=== PATIENT | female | born 1940 | race Caucasian/White ===

== ENCOUNTER 2016-10-02 11:59 | Inpatient (IN) | payer OTHER, MEDICAID, MEDICARE ==
[2016-10-02] VITALS (10 sets, daily range): BP systolic 122–151; BP diastolic 58–75; PULSE 64–80; RESP 16–24; TEMP 98–98.8; O2SAT 94–98
[~2016-10-02] VITALS: Ht 162.6 cm; Wt 87.8 kg
[~2016-10-02 11:59] MED LIST: ASPI81; ATEN1TAB73; ATOR10; ENAL20TA81; MVI; ROSI1TAB24
[2016-10-02] MEDS ORDERED: SODIUM CHLOR 0.9% 1000 ML INJ 1,000 ML IV ONE (12:08)
[2016-10-02 12:23] LABS: I-STAT POTASSIUM 3.9 MMOL/L (3.5-4.9); I-STAT SODIUM 140 MMOL/L (138-146)
[2016-10-02 12:25] LABS: AUTOMATED NEUTROPHIL # 4.4 TH/MM3 (1.8-7.7); BASOPHIL % 0.6 % (0.0-2.0); EOSINOPHIL # 0.1 TH/MM3 (0-0.4); EOSINOPHIL % 1.9 % (0.0-4.0); HEMATOCRIT 38.5 % (35.0-46.0); HEMO FLAGS DIFF FINAL; LYMPH % 25.4 % (9.0-44.0); LYMPHOCYTE # 1.7 TH/MM3 (1.0-4.8); MEAN CELL VOLUME 92.2 FL (80.0-100.0); MEAN CORPUSCULAR HEMOGLOBIN 29.6 PG (27.0-34.0); MEAN CORPUSCULAR HGB CONC 32.1 % (32.0-36.0); MONO % 5.7 % (0.0-8.0); NEUT % 66.4 % (16.0-70.0); PLATELET COUNT 136 TH/MM3 (150-450); RED BLOOD COUNT 4.18 MIL/MM3 (4.00-5.30); RED CELL DISTRIBUTION WIDTH 12.3 % (11.6-17.2); WHITE BLOOD COUNT 6.7 TH/MM3 (4.0-11.0)
--- NOTE | 2016-10-02 12:30 | RADRPT ---
EXAM DATE/TIME: 10/02/2016 12:13 [facility] COMPARISON: No previous studies available for comparison. INDICATIONS : Stroke alert; left side weakness, altered mental status. RADIATION DOSE: 34.92 CTDIvol (mGy) This report was called to Dr Fonseca at 12 18 MEDICAL HISTORY : Hypertension. SURGICAL HISTORY : None. ENCOUNTER: Initial ACUITY: 1 day PAIN SCALE: Non-responsive LOCATION: cranial TECHNIQUE: Multiple contiguous axial images were obtained of the head. Using automated exposure control and adj ustment of the mA and/or kV according to patient size, radiation dose was kept as low as reasonably a chievable to obtain optimal diagnostic quality images. FINDINGS: Negative for an acute process. There is an old infarct in the left parieto-occipital region. There is no parenchymal hemorrhage, acute infarction or mass lesion. There is no extra-axial fluid c ollection appreciated. The posterior fossa is unremarkable. 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 Otherwise, negative for an acute process. MRI is pending. Ha Mancilla MD FACR on October 02, 2016 at 12:20 Board Certified Radiologist. This report was verified electronically.
[2016-10-02 12:32] LABS: APTT (PATIENT) 22.9 SEC (24.3-30.1); PROTHROMBIN TIME - PATIENT 10.7 SEC (9.8-11.6)
[2016-10-02 12:44] LABS: CREATINE KINASE 92 U/L (26-192)
--- NOTE | 2016-10-02 12:53 | RADRPT ---
EXAM DATE/TIME: 10/02/2016 12:46 [facility] COMPARISON: No previous studies available for comparison. INDICATIONS : Stroke alert. MEDICAL HISTORY : Hypertension. SURGICAL HISTORY : None. ENCOUNTER: Initial ACUITY: 1 day PAIN SCORE: Non-responsive. LOCATION: Bilateral chest FINDINGS: A single view of the chest demonstrates the lungs to be symmetrically aerated without evidence of mas s, infiltrate or effusion. The cardiomediastinal contours are unremarkable. Osseous structures are intact. CONCLUSION: No acute disease. Andrew Bui MD on October 02, 2016 at 12:51 Board Certified Radiologist. This report was verified electronically.
[2016-10-02 13:07] LABS: BLOOD, URINE NEG (NEG); GLUCOSE,URINE NEG (NEG); KETONE, URINE NEG (NEG); MUCUS URINE FEW /lpf (OCC); NITRITE,URINE NEG (NEG); PH, URINE 5.5 (5.0-8.5); URINE COLOR YELLOW (YELLW/STRAW)
[2016-10-02] MEDS ORDERED: VITA100T54 PO (13:08)
[2016-10-02] MEDS ORDERED: SERT-129 PO (13:08)
[2016-10-02] MEDS ORDERED: TEMA15CA PO (13:08)
[2016-10-02] MEDS ORDERED: LISI-519 PO (13:08)
[2016-10-02] MEDS ORDERED: METF500T PO (13:08)
[2016-10-02] MEDS ORDERED: PROG100C PO (13:08)
[2016-10-02] MEDS ORDERED: LEVE500T8 PO (13:08)
[2016-10-02] MEDS ORDERED: ASPI1TAB69 PO (13:08)
[2016-10-02] MEDS ORDERED: TRAM50TA PO (13:08)
[2016-10-02] MEDS ORDERED: SIMV40TA PO (13:08)
[2016-10-02] MEDS ORDERED: GADODIAMIDE PF 287 MG/ML 20 ML VIAL (for RAD MRI) IV ONE (14:31)
--- NOTE | 2016-10-02 14:33 | RADRPT ---
EXAM DATE/TIME: 10/02/2016 13:49 [facility] COMPARISON: MRI BRAIN W/O CONTRAST, October 02, 2016, 13:49. INDICATIONS : Aphasia. Right sided weakness with left sided gaze. MEDICAL HISTORY : Diabetes mellitus type 2. Hypertension. SURGICAL HISTORY : Hysterectomy. ENCOUNTER: Initial ACUITY: 1 day PAIN SCORE: 0/10 LOCATION: cranial Please note a normal MRA of the brain does not entirely exclude the possibility of a small aneurysm, nor the possibility of distal intracranial vessel disease. TECHNIQUE: 3D time of flight MRA was performed. Source images, multiplanar STS MIP, and 3D volume MIP reconstru ctions were reviewed. FINDINGS: There is occlusion of the left internal carotid artery. The right internal carotid artery is patent. The right internal carotid artery is seen to normally bifurcate into the anterior and middle cerebral arteries. Both the right and left A2 segments fill from the right side. A small amount of flow withi n the left A1 segment from the anterior communicating artery. No significant flow is seen within the left middle cerebral artery territory. The basilar artery is from the 2 vertebral arteries. The basil ar artery primarily and is at the right posterior cerebral artery. The left posterior cerebral artery demonstrates very minimal flow. 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 Minimal flow is seen i n the left posterior cerebral artery. Andrew Bui MD on October 02, 2016 at 14:26 Board Certified Radiologist. This report was verified electronically.
--- NOTE | 2016-10-02 14:46 | RADRPT ---
EXAM DATE/TIME: 10/02/2016 13:49 [facility] COMPARISON: MRA BRAIN W/O CONTRAST, October 02, 2016, 13:49. CT BRAIN W/O CONTRAST, October 02, 2016, 12:13. INDICATIONS : Aphasia. Right sided weakness with left sided gaze. MEDICAL HISTORY : Hypertension. Diabetes mellitus type 2. SURGICAL HISTORY : Hysterectomy. ENCOUNTER: Initial ACUITY: 1 day PAIN SCORE: 0/10 LOCATION: cranial TECHNIQUE: Multiplanar, multisequence MRI of the brain was performed without contrast. FINDINGS: Abnormal signal is seen involving the left temporal lobe with associated restricted diffusion. Simila r characteristics are seen from a single standpoint involving the periventricular white matter of the left frontal lobe and parietal lobe. There is an area of encephalomalacia involving the left occipit al lobe. No hemorrhage observe. The remaining periventricular white matter shows scattered high T2 si gnal abnormality. Ventricles are normal in size. There is signal seen within the left middle cerebral artery and throughout the visualized portions of the left ICA consistent with thrombus. CONCLUSION: 1. Acute nonhemorrhagic left MCA territory infarction with signal involving the left ICA and MCA cons istent with thrombus. 2. Encephalomalacia in the left occipital lobe. 3. Chronic small vessel ischemic change. Vel Barkley Jr., MD on October 02, 2016 at 14:23 Board Certified Radiologist. This report was verified electronically.
--- NOTE | 2016-10-02 15:10 | RADRPT ---
EXAM DATE/TIME: 10/02/2016 13:49 [facility] COMPARISON: No previous studies available for comparison. INDICATIONS : Aphasia with right sided weakness and left sided qaze. CONTRAST: 20 cc Omniscan (gadodiamide) IV MEDICAL HISTORY : Hypertension. Diabetes mellitus type 2. SURGICAL HISTORY : Hysterectomy. ENCOUNTER: Initial ACUITY: 1 day PAIN SCORE: 0/10 LOCATION: Cranial Percent stenosis is calculated using the diameter of the stenotic region over the diameter of the nor mal distal internal carotid artery. TECHNIQUE: Bolus infused MRA of the extracranial circulation was performed using a neurovascular coil. Post processing was performed including rotating subvolume maximum intensity projections of ea ch carotid artery, rotating full volume maximum intensity projections of both carotid arteries, sagit amy and coronal sliding thin slab reformations of each carotid artery, and left oblique sliding thin slab reformation through the aortic arch to include the origin of the arch branch vessels. FINDINGS: Branching pattern of the great vessels is normal. RIGHT CAROTID: There is no evidence for hemodynamically significant carotid stenosis. LEFT CAROTID: There is occlusion of the left internal carotid at its origin through the skull bas e. There is apparent collateral filling of the distal MCA branches. VERTEBRALS: Both vertebral arteries are patent. CONCLUSION: Occluded left internal carotid at its origin through the skull base. Ha Mancilla MD FACR on October 02, 2016 at 14:58 Board Certified Radiologist. This report was verified electronically.
--- NOTE | 2016-10-02 15:39 | PD ---
HPI Chief Complaint: Stroke Alert Time Seen by Provider: 12:07 Travel History International Travel<30 days: No Contact w/Intl Traveler<30days: No Traveled to known affect area: No History of Present Illness HPI 76-year-old female was brought in by EMS for right-sided weakness and aphasia. Patient was last seen normal last night. Patient was found by a friend this morning unable to speak and with right-sided weakness . EMS was called. Patient was brought to the ED for evaluation. Patient's friend states the patient had a CVA last year and was seen by personal physician. Patient's friend states that she has some mild residual weakness since then. Patient's unable to provide information. Patient's friend is not available now for further history. In reviewing medical record, patient has history hypertension , diabetes, dyslipidemia. Patient status post hysterectomy. PFSH Past Medical History High Cholesterol: Yes Cerebrovascular Accident: Yes (LAST YEAR) Diabetes: Yes Patient Takes Glucophage: Yes (06/03/17 0900) Hypertension: Yes Tetanus Vaccination: Unknown Influenza Vaccination: Yes ?: Not Past Surgical History Hysterectomy: Yes Social History Alcohol Use: No Tobacco Use: Yes (1 PK PER DAY) Allergies-Medications (Allergen,Severity, Reaction): Coded Allergies: No Known Allergies (Verified , 10/02/16) Reported Meds & Prescriptions Reported Meds & Active Scripts Active Reported Progesterone Micronized 100 Mg Cap 100 Mg PO DAILY Levetiracetam 500 Mg Tab 500 Mg PO TID Metformin (Metformin HCl) 500 Mg Tab 500 Mg PO BIDPC With meals Temazepam 15 Mg Cap 15 Mg PO HS PRN Sertraline (Sertraline HCl) 100 Mg Tab 100 Mg PO DAILY Simvastatin 40 Mg Tab 40 Mg PO HS Lisinopril 5 Mg Tab 5 Mg PO DAILY Vitamin B-1 (Thiamine HCl) 100 Mg Tab 100 Mg PO DAILY Aspirin 81 Mg Tabdr 81 Mg PO DAILY Tramadol (Tramadol HCl) 50 Mg Tab 50 Mg PO Q4H PRN Review of Systems ROS Limitations: Altered Mental Status, Speech Impaired General / Constitutional: No: Fever Eyes: No: Visual changes HENT: No: Headaches Cardiovascular: No: Chest Pain or Discomfort Respiratory: No: Shortness of Breath Gastrointestinal: No: Abdominal Pain Genitourinary: No: Dysuria Musculoskeletal: No: Pain Skin: No Rash Neurologic: No: Weakness Psychiatric: No: Depression Endocrine: No: Polydipsia Hematologic/Lymphatic: No: Easy Bruising Physical Exam Narrative GENERAL: Well-nourished, well-developed patient. Patient's awake SKIN: Warm and dry. HEAD: Normocephalic. EYES: No scleral icterus. No injection or drainage. Pupils 2 mm equal reactive. NECK: Supple, trachea midline. No JVD or lymphadenopathy. CARDIOVASCULAR: Regular rate and rhythm without murmurs, gallops, or rubs. RESPIRATORY: Breath sounds equal bilaterally. No accessory muscle use. GASTROINTESTINAL: Abdomen soft, non-tender, nondistended. MUSCULOSKELETAL: No cyanosis, or edema. BACK: Nontender without obvious deformity. No CVA tenderness. Neurologic exam: Patient is awake however does not follow command. Patient unable to move the right upper and lower extremity. Mild drooping on the right side of face. Deep tendon reflexes 1+ and equal. Negative Babinski. Data Data Last Documented VS Vital Signs Date Time Temp Pulse Resp B/P Pulse Ox O2 Delivery O2 Flow Rate FiO2 10/02/16 14:43 67 17 132/62 96 Room Air 10/02/16 12:48 2.00 10/02/16 12:21 98.0 Orders Diet Npo (10/02/16 Lunch) Activity Bed Rest (10/02/16 ) Electrocardiogram (10/02/16 ) I-Stat Creatinine (10/02/16 12:08) I-Stat Profile (10/02/16 12:08) Prothrombin Time / Inr (Pt) (10/02/16 12:08) Act Partial Throm Time (Ptt) (10/02/16 12:08) Complete Blood Count With Diff (10/02/16 12:08) Fibrinogen (10/02/16 12:08) Creatine Kinase (Cpk) (10/02/16 12:08) Troponin I (10/02/16 12:08) Ua Includes Microscopic (10/02/16 12:08) Type And Screen (10/02/16 12:08) Ct Brain W/O Iv Contrast(Rout) (10/02/16 ) Chest, Single Ap (10/02/16 ) Consult Neurology (10/02/16 ) Blood Glucose (10/02/16 12:08) Ecg Monitoring (10/02/16 12:08) Neuro Checks Q2HX12,Q4H (10/02/16 12:08) Nursing Bedside Swallow Assess .ONCE (10/02/16 12:08) Iv Access Insert/Monitor (10/02/16 12:08) NPO (10/02/16 12:08) Oximetry (10/02/16 12:08) Oxygen Administration (10/02/16 12:08) Sodium Chlor 0.9% 1000 Ml Inj (Ns 1000 M (10/02/16 12:08) Resp Oxygen Telly C Titrat 1-4 L (10/02/16 12:08) Cath For Specimen (10/02/16 12:08) Mri Brain W/O Contrast (10/02/16 12:18) Mra Brain W/O Contrast (Cow) (10/02/16 12:18) Mra Carotids W Contrast (10/02/16 12:18) (Hub Use Only)Inp Phy Cons/Ref (10/02/16 ) Gadodiamide Pf Inj (Omniscan Pf Inj) (10/02/16 14:31) Labs Laboratory Tests Test 10/02/16 10/02/16 12:10 12:52 White Blood Count 6.7 TH/MM3 Red Blood Count 4.18 MIL/MM3 Hemoglobin 12.4 GM/DL Bedside Hemoglobin 12.6 G/DL Hematocrit 38.5 % Bedside Hematocrit 37.0 % Mean Corpuscular Volume 92.2 FL Mean Corpuscular Hemoglobin 29.6 PG Mean Corpuscular Hemoglobin 32.1 % Concent Red Cell Distribution Width 12.3 % Platelet Count 136 TH/MM3 Mean Platelet Volume 9.6 FL Neutrophils (%) (Auto) 66.4 % Lymphocytes (%) (Auto) 25.4 % Monocytes (%) (Auto) 5.7 % Eosinophils (%) (Auto) 1.9 % Basophils (%) (Auto) 0.6 % Neutrophils # (Auto) 4.4 TH/MM3 Lymphocytes # (Auto) 1.7 TH/MM3 Monocytes # (Auto) 0.4 TH/MM3 Eosinophils # (Auto) 0.1 TH/MM3 Basophils # (Auto) 0.0 TH/MM3 CBC Comment DIFF FINAL Differential Comment Prothrombin Time 10.7 SEC Prothromb Time International 1.0 RATIO Ratio Activated Partial 22.9 SEC Thromboplast Time Fibrinogen 270 mg/dL Bedside Sodium 140 MMOL/L Bedside Potassium 3.9 MMOL/L Bedside Chloride 103 MMOL/L Bedside Blood Urea Nitrogen 16 MG/DL Bedside Creatinine 1.0 MG/DL Bedside Glucose 138 MG/DL Total Creatine Kinase 92 U/L Troponin I LESS THAN 0.02 NG/ML Urine Color YELLOW Urine Turbidity CLEAR Urine pH 5.5 Urine Specific [place] 1.025 Urine Protein TRACE mg/dL Urine Glucose (UA) NEG mg/dL Urine Ketones NEG mg/dL Urine Occult Blood NEG Urine Nitrite NEG Urine Bilirubin NEG Urine Urobilinogen LESS THAN 2.0 MG/DL Urine Leukocyte Esterase NEG Urine RBC 1 /hpf Urine WBC 2 /hpf Urine Mucus FEW /lpf MDM Medical Decision Making Medical Screen Exam Complete: Yes Emergency Medical Condition: Yes Interpretation(s) Last Impressions Head Magnetic Resonance Angiography 10/02/16 1218 Signed Impressions: Service Date/Time: September 13:49 - CONCLUSION: 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 Minimal flow is seen in the left posterior cerebral artery. Andrew Bui MD Brain MRI 10/02/16 1218 Signed Impressions: Service Date/Time: September 13:49 - CONCLUSION: 1. Acute nonhemorrhagic left MCA territory infarction with signal involving the left ICA and MCA consistent with thrombus. 2. Encephalomalacia in the left occipital lobe. 3. Chronic small vessel ischemic change. 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 Otherwise, negative for an acute process. MRI is pending. Ha Mancilla MD FACR Chest X-Ray 10/02/16 0000 Signed Impressions: Service Date/Time: September 12:46 - CONCLUSION: No acute disease. Andrew Bui MD Differential Diagnosis Differential diagnosis including TIA, CVA. Narrative Course 76-year-old female with aphasia and right-sided weakness. Patient was found this morning by a friend with the symptoms. Stroke alert was called. Normal saline solution 70 cc an hour. Head of bed flat. O2 2 L nasal cannula. I spoke with neurologist station worker Dr. Begum. Patient is not a candidate for TPA because patient last seen normal was last night. Diagnosis Primary Impression: Acute CVA (cerebrovascular accident) Bacilio Fonseca MD 16, 2017 15:39
[2016-10-02] MEDS ORDERED: SODIUM CHLORIDE 0.9% FLUSH 5 ML FLUSH FLUSH PRN (16:30)
[2016-10-02] MEDS ORDERED: NALOXONE HCL 0.4 MG/ML AMP IV PRN (16:30)
--- NOTE | 2016-10-02 16:33 | HHI.HP ---
[facility] Service [facility] Primary Care Physician Unknown Admission Diagnosis acute CVA Diagnoses: Chief Complaint: Right side Weakness Travel History International Travel<30 Days: No Contact w/Intl Traveler <30 Da: No Traveled to Known Affected Are: No History of Present Illness This is a pleasant 76 y/o Female who was brought in by EMS for right sided weakness and aphasia, the last time seen Normal was yesterday night, she was found by a friend this morning unable to Speak and with right sided weakness she has history of CVA last year ans was seen by her PCP, she has some mild residual weakness since then, the patient was unable to provide information, she has Hypertension, DM II, Hyperlipidemia, Status post Hysterectomy Discussed with patient, who has Dysarthria, he Daughter Mrs. Nyla Almanza and her relative Mr. Cr Sheikh in the room, the patient is heavy smoker one pack of cigarettes daily. unable to move her right side, will need early Physical Therapy and Occupational Therapy, Speech therapy working with her but did not pass the swallow test will need IV fluids. Past Family Social History Past Medical History Hyperlipidemia CVA last year. DM II Hypertension Obesity Severe Tobacco dependence Past Surgical History YOGESH Reported Medications Reported Meds & Active Scripts Active Reported Progesterone Micronized 100 Mg Cap 100 Mg PO DAILY Levetiracetam 500 Mg Tab 500 Mg PO TID Metformin (Metformin HCl) 500 Mg Tab 500 Mg PO BIDPC With meals Temazepam 15 Mg Cap 15 Mg PO HS PRN Sertraline (Sertraline HCl) 100 Mg Tab 100 Mg PO DAILY Simvastatin 40 Mg Tab 40 Mg PO HS Lisinopril 5 Mg Tab 5 Mg PO DAILY Vitamin B-1 (Thiamine HCl) 100 Mg Tab 100 Mg PO DAILY Aspirin 81 Mg Tabdr 81 Mg PO DAILY Tramadol (Tramadol HCl) 50 Mg Tab 50 Mg PO Q4H PRN Allergies: Coded Allergies: No Known Allergies (Verified , 10/02/16) Active Ordered Medications Current Medications Medications (Trade) Dose Ordered Sig/Lauren Route Start Time Stop Time Status Last Admin (NS 1000 ml Inj) 1,000 ml @ 70 mls/hr [id number] ONCE IV 10/02/16 12:08 10/03/16 02:25 10/02/16 13:28 (Keppra) 500 mg TID PO 10/02/16 18:00 UNV (Prinivil) 5 mg DAILY PO 10/03/16 09:00 UNV (Zoloft) 100 mg DAILY PO 10/03/16 09:00 UNV (Restoril) 15 mg HS PRN PO 10/02/16 16:30 UNV (Vitamin B1) 100 mg DAILY PO 10/03/16 09:00 UNV Non-Formulary Medication 40 mg HS PO 10/02/16 21:00 UNV Family History Mother and Father with CAD and Hypertension. Social History Denies Alcohol abuse but smokes one pack per day Physical Exam Vital Signs Vital Signs Date Time Temp Pulse Resp B/P Pulse Ox O2 Delivery O2 Flow Rate FiO2 10/02/16 14:43 67 17 132/62 96 Room Air 10/02/16 13:09 65 16 125/58 96 Room Air 10/02/16 12:48 98 Nasal Cannula 2.00 10/02/16 12:45 68 16 95 Room Air 10/02/16 12:36 94 Room Air 10/02/16 12:36 97 Nasal Cannula 2 10/02/16 12:21 98.0 66 16 151/67 98 Physical Exam GENERAL: Obese patient alert and oriented but with Dysarthria. SKIN: Warm and dry. HEAD: Normocephalic. EYES: No scleral icterus. No injection or drainage. Pupils 2 mm equal reactive. NECK: Supple, trachea midline. No JVD or lymphadenopathy. CARDIOVASCULAR: Regular rate and rhythm without murmurs, gallops, or rubs. RESPIRATORY: Breath sounds equal bilaterally. No accessory muscle use. GASTROINTESTINAL: Abdomen soft, non-tender, nondistended. MUSCULOSKELETAL: No cyanosis, or edema. BACK: Nontender without obvious deformity. No CVA tenderness. Neurologic exam: Patient is awake, alert and looks oriented, unable to move her right arm and right leg. Mild drooping on the right side of face. Deep tendon reflexes 1+ and equal. Negative Babinski. Laboratory Laboratory Tests Test 10/02/16 10/02/16 10/02/16 12:10 12:52 15:05 White Blood Count 6.7 Red Blood Count 4.18 Hemoglobin 12.4 Bedside Hemoglobin 12.6 Hematocrit 38.5 Bedside Hematocrit 37.0 Mean Corpuscular Volume 92.2 Mean Corpuscular Hemoglobin 29.6 Mean Corpuscular Hemoglobin 32.1 Concent Red Cell Distribution Width 12.3 Platelet Count 136 Mean Platelet Volume 9.6 Neutrophils (%) (Auto) 66.4 Lymphocytes (%) (Auto) 25.4 Monocytes (%) (Auto) 5.7 Eosinophils (%) (Auto) 1.9 Basophils (%) (Auto) 0.6 Neutrophils # (Auto) 4.4 Lymphocytes # (Auto) 1.7 Monocytes # (Auto) 0.4 Eosinophils # (Auto) 0.1 Basophils # (Auto) 0.0 CBC Comment DIFF FINAL Differential Comment Prothrombin Time 10.7 Prothromb Time International 1.0 Ratio Activated Partial 22.9 Thromboplast Time Fibrinogen 270 Bedside Sodium 140 Bedside Potassium 3.9 Bedside Chloride 103 Bedside Blood Urea Nitrogen 16 Bedside Creatinine 1.0 Bedside Glucose 138 Total Creatine Kinase 92 Troponin I LESS THAN 0.02 Urine Color YELLOW Urine Turbidity CLEAR Urine pH 5.5 Urine Specific [place] 1.025 Urine Protein TRACE Urine Glucose (UA) NEG Urine Ketones NEG Urine Occult Blood NEG Urine Nitrite NEG Urine Bilirubin NEG Urine Urobilinogen LESS THAN 2.0 Urine Leukocyte Esterase NEG Urine RBC 1 Urine WBC 2 Urine Mucus FEW Blood Type A POSITIVE Result Diagram: 10/02/16 1210 Imaging Last Impressions Neck Magnetic Resonance Angiography 10/02/168 Signed Impressions: Service Date/Time: September 13:49 - CONCLUSION: Occluded left internal carotid at its origin through the skull base. 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 Minimal flow is seen in the left posterior cerebral artery. Andrew Bui MD Brain MRI 10/02/168 Signed Impressions: Service Date/Time: September 13:49 - CONCLUSION: 1. Acute nonhemorrhagic left MCA territory infarction with signal involving the left ICA and MCA consistent with thrombus. 2. Encephalomalacia in the left occipital lobe. 3. Chronic small vessel ischemic change. 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 Otherwise, negative for an acute process. MRI is pending. Ha Mancilla MD FACR Chest X-Ray 10/02/16 0000 Signed Impressions: Service Date/Time: September 12:46 - CONCLUSION: No acute disease. Andrew Bui MD Assessment and Plan Assessment and Plan 1. Acute Left Arterial Ischemic Stroke, ICA Internal Carotid Artery Occlusion, Moderate to large occlusion questioned by Neurology specialist possible Acute thrombosis of Stenotic left Carotid versus Acute Occlusion early discussed between ER specialist and Neurology due to Stroke alert but not considered by Doctor Clemente Begum to give tPA, because of the last time seen normal was last night. given Aspirin rectally, asked for Echocardiogram avoid Hypotension, PT, OT and ST failed swallow test is NPO. continue Cardiac monitoring. 2. Left Carotid Artery Occlusion 3. 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 4. Hypertension controlled on hold Lisinopril 5 mg 5. Hyperlipidemia to continue Statins 6. CVA last year 7. DM II continue sliding scale she is NPO. 8. Hyperlipidemia 9. Obesity strongly recommended diet and exercise as outpatient, 10. Severe Tobacco dependence strongly recommended to stop smoking. DVT prophylaxis with Lovenox Discussed with Emergency Medicine specialist doctor Bacilio green. Code Status Full Code. Discussed Condition With Patient, Her Daughter Mrs. Nyla Almanza and relative Mr. Cr Sheikh Discussed with ER specialist. Physician Certification 2 Midnight Certification Type: Admission for Inpatient Services Order for Inpatient Services The services are ordered in accordance with Medicare regulations or non- Medicare payer requirements, as applicable. In the case of services not specified as inpatient-only, they are appropriately provided as inpatient services in accordance with the 2-midnight benchmark. Estimated LOS (days): 3 days is the estimated time the patient will need to remain in the hospital, assuming treatment plan goals are met and no additional complications. Post-Hospital Plan: Not yet determined Gabriel Salazar MD Oct 02, 2016 16:33
[2016-10-02] MEDS: DOCUSATE SODIUM 100 MG CAP PO SCH (16:54)
[2016-10-02] MEDS: SODIUM CHLOR 0.9% 1000 ML INJ 1,000 ML IV SCH ×2 (16:54→18:19)
[2016-10-02] MEDS ORDERED: ONDANSETRON HCL 4 MG/2 ML VIAL IVP PRN (17:00)
[2016-10-02] MEDS ORDERED: BISACODYL 10 MG SUPP PR PRN (17:00)
[2016-10-02] MEDS ORDERED: ACETAMINOPHEN 325 MG TAB PO PRN (17:00)
[2016-10-02] MEDS: ASPIRIN 300 MG SUPP RECTAL SCH (17:18)
[2016-10-02] MEDS: ENOXAPARIN SODIUM 40 MG/0.4 ML SYRINGE SQ SCH (17:19)
--- NOTE | 2016-10-02 17:30 | PD.CONS ---
History of Present Illness Service Neurology Consult Requested By er Reason for Consult stroke alert Primary Care Physician Unknown History of Present Illness 76-year-old female was brought in by EMS for right-sided weakness and aphasia. Patient was last seen normal last night. found by friend this am with deficits. not iv/ia tpa candidate. Patient was found by a friend this morning unable to speak and with right-sided weakness . EMS was called. glucose 138. ct brain no ich. pt poor gx. mri brain- acute stroke left hemisphere mra carotids- left ica occlusion at bifurcation origin mra brain-left ica /mca occlusion PFSH Past Medical History High Cholesterol: Yes Cerebrovascular Accident: Yes (LAST YEAR) Diabetes: Yes Patient Takes Glucophage: Yes (06/03/17 0900) Hypertension: Yes Tetanus Vaccination: Unknown Influenza Vaccination: Yes ?: Not Past Surgical History Hysterectomy: Yes Social History Alcohol Use: No Tobacco Use: Yes (1 PK PER DAY) Allergies-Medications (Allergen,Severity, Reaction): Coded Allergies: No Known Allergies (Verified , 10/02/16) Reported Meds & Prescriptions Reported Meds & Active Scripts Active Reported Progesterone Micronized 100 Mg Cap 100 Mg PO DAILY Levetiracetam 500 Mg Tab 500 Mg PO TID Metformin (Metformin HCl) 500 Mg Tab 500 Mg PO BIDPC With meals Temazepam 15 Mg Cap 15 Mg PO HS PRN Sertraline (Sertraline HCl) 100 Mg Tab 100 Mg PO DAILY Simvastatin 40 Mg Tab 40 Mg PO HS Lisinopril 5 Mg Tab 5 Mg PO DAILY Vitamin B-1 (Thiamine HCl) 100 Mg Tab 100 Mg PO DAILY Aspirin 81 Mg Tabdr 81 Mg PO DAILY Tramadol (Tramadol HCl) 50 Mg Tab 50 Mg PO Q4H PRN Review of Systems ROS Limitations: Altered Mental Status, Speech Impaired Review of Systems All other ROS: ROS reviewed as documented in chart Past Family Social History Allergies: Coded Allergies: No Known Allergies (Verified , 10/02/16) Active Ordered Medications Current Medications Medications (Trade) Dose Ordered Sig/Lauren Route Start Time Stop Time Status Last Admin (Keppra) 500 mg TID PO 10/02/16 18:00 (Prinivil) 5 mg DAILY PO 10/03/16 09:00 (Zoloft) 100 mg DAILY PO 10/03/16 09:00 (Restoril) 15 mg HS PRN PO 10/02/16 16:30 (Vitamin B1) 100 mg DAILY PO 10/03/16 09:00 (Pravachol) 80 mg HS PO 10/02/16 21:00 Aspirin 300 mg 300 mg DAILY RECTAL 10/02/16 17:00 10/02/16 17:18 (NS 1000 ml Inj) 1,000 ml @ 83 mls/hr Q12H3M IV 10/02/16 17:00 10/02/16 16:54 (NS Flush) 2 ml UNSCH PRN FLUSH 10/02/16 16:30 (NS Flush) 2 ml BID FLUSH 10/02/16 21:00 (Tylenol) 650 mg Q4H PRN PO 10/02/16 17:00 (Zofran Inj) 4 mg Q6H PRN IVP 10/02/16 17:00 (Dulcolax Supp) 10 mg DAILY PRN [place] 10/02/16 17:00 (Colace) 100 mg Q12H PO 10/02/16 17:00 (Lovenox Inj) 40 mg Q24H SQ 10/02/16 17:00 10/02/16 17:19 (Narcan Inj) 0.4 mg UNSCH PRN IV 10/02/16 16:30 Exam I&O / VS Vital Signs Date Time Temp Pulse Resp B/P Pulse Ox O2 Delivery O2 Flow Rate FiO2 10/02/16 16:23 64 16 137/64 98 Room Air 10/02/16 14:43 67 17 132/62 96 Room Air 10/02/16 13:09 65 16 125/58 96 Room Air 10/02/16 12:48 98 Nasal Cannula 2.00 10/02/16 12:45 68 16 95 Room Air 10/02/16 12:36 94 Room Air 10/02/16 12:36 97 Nasal Cannula 2 10/02/16 12:21 98.0 66 16 151/67 98 Exam Comments alert, not following, mild left gaze and left head turn, rt hh, reduced rt nlf, rt hemiplegia Review/Management Diagnosis/Plan: (1) Acute left arterial ischemic stroke, ICA (internal carotid artery) Plan: moderate to large 2/2 left ica occlusion ? acute thrombosis of stenotic left carotid vs acute occlusion 2/2 emboli recs aspirin rectally echo ivf avoid hypotension watch resp status isc admit p.t./s.t. in am follow exam (2) Left carotid artery occlusion (3) Seizure cerebral Plan: hx of on keppra recs change to iv keppra for now (4) HTN (hypertension) Problem Qualifiers (1) HTN (hypertension): Qualified Code: I10 - Essential hypertension Clemente Begum MD Oct 02, 2016 17:30
[2016-10-02] MEDS ORDERED: levETIRAcetam 500 MG TAB PO SCH (18:00)
[2016-10-02 19:05] LABS: CREATINE KINASE 125 U/L (26-192)
[2016-10-02] MEDS: PRAVASTATIN SOD 80 MG TAB PO SCH (19:21)
[2016-10-02] MEDS: SODIUM CHLORIDE 0.9% FLUSH 5 ML FLUSH FLUSH SCH (19:39)
[2016-10-02] MEDS: levETIRAcetam INJ 500 MG in SODIUM CHLORIDE 0.9% INJ 100 ML IV SCH (19:39)
[2016-10-02] MEDS: INSULIN NovoLIN REGULAR SUPPLEMENTAL SCALE SQ SCH (20:49)
[2016-10-03] VITALS (14 sets, daily range): BP systolic 115–142; BP diastolic 66–78; PULSE 64–89; RESP 10–29; TEMP 98.2–99.2; O2SAT 93–99
[2016-10-03 01:22] LABS: CREATINE KINASE 122 U/L (26-192)
[2016-10-03] MEDS: DOCUSATE SODIUM 100 MG CAP PO SCH ×2 (03:44→16:50)
[2016-10-03 05:28] LABS: AUTOMATED NEUTROPHIL # 5.4 TH/MM3 (1.8-7.7); BASOPHIL % 0.4 % (0.0-2.0); EOSINOPHIL # 0.1 TH/MM3 (0-0.4); EOSINOPHIL % 0.7 % (0.0-4.0); HEMATOCRIT 36.7 % (35.0-46.0); HEMO FLAGS DIFF FINAL; LYMPH % 29.2 % (9.0-44.0); LYMPHOCYTE # 2.5 TH/MM3 (1.0-4.8); MEAN CELL VOLUME 91.1 FL (80.0-100.0); MEAN CORPUSCULAR HEMOGLOBIN 29.7 PG (27.0-34.0); MEAN CORPUSCULAR HGB CONC 32.6 % (32.0-36.0); MONO % 6.9 % (0.0-8.0); NEUT % 62.8 % (16.0-70.0); PLATELET COUNT 137 TH/MM3 (150-450); RED BLOOD COUNT 4.03 MIL/MM3 (4.00-5.30); RED CELL DISTRIBUTION WIDTH 12.1 % (11.6-17.2); WHITE BLOOD COUNT 8.6 TH/MM3 (4.0-11.0)
[2016-10-03 05:33] LABS: PROTHROMBIN TIME - PATIENT 10.8 SEC (9.8-11.6)
[2016-10-03 06:07] LABS: BICARBONATE 26.4 MEQ/L (21.0-32.0); POTASSIUM 3.8 MEQ/L (3.5-5.1)
[2016-10-03] MEDS: INSULIN NovoLIN REGULAR SUPPLEMENTAL SCALE SQ SCH ×4 (06:11→21:00)
--- NOTE | 2016-10-03 08:06 | HHI.PR ---
Review/Management Diagnosis/Plan: (1) Acute left arterial ischemic stroke, ICA (internal carotid artery) Plan: moderate to large 2/2 left ica occlusion ? acute thrombosis of stenotic left carotid vs acute occlusion 2/2 emboli recs aspirin rectally echo-pending ok for 5th floor p.t./s.t. today follow exam (2) Left carotid artery occlusion Plan: no intervention possible (3) Seizure cerebral Plan: hx of on keppra recs change to iv keppra for now (4) HTN (hypertension) Subjective Subjective Comments No acute events reported Active Medications Current Medications Medications (Trade) Dose Ordered Sig/Lauren Route Start Time Stop Time Status Last Admin (Zoloft) 100 mg DAILY PO 10/03/16 09:00 (Restoril) 15 mg HS PRN PO 10/02/16 16:30 (Vitamin B1) 100 mg DAILY PO 10/03/16 09:00 (Pravachol) 80 mg HS PO 10/02/16 21:00 Aspirin 300 mg 300 mg DAILY RECTAL 10/02/16 17:00 10/02/16 17:18 (NS 1000 ml Inj) 1,000 ml @ 83 mls/hr Q12H3M IV 10/02/16 17:00 10/02/16 18:19 (NS Flush) 2 ml UNSCH PRN FLUSH 10/02/16 16:30 (NS Flush) 2 ml BID FLUSH 10/02/16 21:00 10/02/16 19:39 (Tylenol) 650 mg Q4H PRN PO 10/02/16 17:00 (Zofran Inj) 4 mg Q6H PRN IVP 10/02/16 17:00 (Dulcolax Supp) 10 mg DAILY PRN [place] 10/02/16 17:00 (Colace) 100 mg Q12H PO 10/02/16 17:00 (Lovenox Inj) 40 mg Q24H SQ 10/02/16 17:00 10/02/16 17:19 Naloxone HCl 0.4 mg 0.4 mg UNSCH PRN IV 10/02/16 16:30 (Keppra Inj/NS Inj) 105 ml @ 420 mls/hr Q12HR IV 10/02/16 21:00 10/02/16 19:39 Allergies Allergies Coded Allergies No Known Allergies (Verified10/02/16) Review of Systems All other ROS: ROS reviewed as documented in chart Exam I&O / VS 10/02/16 10/02/16 10/03/16 15:00 23:00 07:00 Intake Total 527 ml 660 ml Balance 527 ml 660 ml Intake IV Total 527 ml 660 ml # Voids 4 3 Vital Signs Date Time Temp Pulse Resp B/P Pulse Ox O2 Delivery O2 Flow Rate FiO2 10/03/16 06:00 64 10/03/16 04:00 98.6 71 18 132/72 93 10/03/16 04:00 71 10/03/16 02:00 69 10/03/16 00:00 98.2 64 18 125/66 99 10/03/16 00:00 64 10/02/16 22:00 80 10/02/16 20:00 98.6 73 24 122/75 96 10/02/16 20:00 68 10/02/16 19:00 98 Room Air 10/02/16 18:00 98.8 73 18 124/73 96 10/02/16 18:00 73 10/02/16 18:00 97 Room Air 10/02/16 17:30 61 17 137/62 97 10/02/16 16:23 64 16 137/64 98 Room Air 10/02/16 14:43 67 17 132/62 96 Room Air 10/02/16 13:09 65 16 125/58 96 Room Air 10/02/16 12:48 98 Nasal Cannula 2.00 10/02/16 12:45 68 16 95 Room Air 10/02/16 12:36 94 Room Air 10/02/16 12:36 97 Nasal Cannula 2 10/02/16 12:21 98.0 66 16 151/67 98 Exam Comments alert, not following, mumbles a couple of words, less gaze preference, rt hh, reduced rt nlf, rt hemiplegia but slight distal finger and toe movement Objective Micro and Labs Laboratory Tests Test 10/02/16 10/02/16 10/02/16 10/02/16 12:10 12:52 15:05 18:15 White Blood Count 6.7 Red Blood Count 4.18 Hemoglobin 12.4 Bedside Hemoglobin 12.6 Hematocrit 38.5 Bedside Hematocrit 37.0 Mean Corpuscular Volume 92.2 Mean Corpuscular Hemoglobin 29.6 Mean Corpuscular Hemoglobin 32.1 Concent Red Cell Distribution Width 12.3 Platelet Count 136 Mean Platelet Volume 9.6 Neutrophils (%) (Auto) 66.4 Lymphocytes (%) (Auto) 25.4 Monocytes (%) (Auto) 5.7 Eosinophils (%) (Auto) 1.9 Basophils (%) (Auto) 0.6 Neutrophils # (Auto) 4.4 Lymphocytes # (Auto) 1.7 Monocytes # (Auto) 0.4 Eosinophils # (Auto) 0.1 Basophils # (Auto) 0.0 CBC Comment DIFF FINAL Differential Comment Prothrombin Time 10.7 Prothromb Time International 1.0 Ratio Activated Partial 22.9 Thromboplast Time Fibrinogen 270 Bedside Sodium 140 Bedside Potassium 3.9 Bedside Chloride 103 Bedside Blood Urea Nitrogen 16 Bedside Creatinine 1.0 Bedside Glucose 138 Total Creatine Kinase 92 Troponin I LESS THAN 0.02 Urine Color YELLOW Urine Turbidity CLEAR Urine pH 5.5 Urine Specific [place] 1.025 Urine Protein TRACE Urine Glucose (UA) NEG Urine Ketones NEG Urine Occult Blood NEG Urine Nitrite NEG Urine Bilirubin NEG Urine Urobilinogen LESS THAN 2.0 Urine Leukocyte Esterase NEG Urine RBC 1 Urine WBC 2 Urine Mucus FEW Blood Type A POSITIVE Antibody Screen NEGATIVE Blood Bank Comment Nasal Screen MRSA (PCR) NEGATIVE Test 10/02/16 10/03/16 10/03/16 18:20 00:22 04:59 Total Creatine Kinase 125 122 Troponin I LESS THAN 0.02 LESS THAN 0.02 White Blood Count 8.6 Red Blood Count 4.03 Hemoglobin 11.9 Hematocrit 36.7 Mean Corpuscular Volume 91.1 Mean Corpuscular Hemoglobin 29.7 Mean Corpuscular Hemoglobin 32.6 Concent Red Cell Distribution Width 12.1 Platelet Count 137 Mean Platelet Volume 9.5 Neutrophils (%) (Auto) 62.8 Lymphocytes (%) (Auto) 29.2 Monocytes (%) (Auto) 6.9 Eosinophils (%) (Auto) 0.7 Basophils (%) (Auto) 0.4 Neutrophils # (Auto) 5.4 Lymphocytes # (Auto) 2.5 Monocytes # (Auto) 0.6 Eosinophils # (Auto) 0.1 Basophils # (Auto) 0.0 CBC Comment DIFF FINAL Differential Comment Prothrombin Time 10.8 Prothromb Time International 1.0 Ratio Sodium Level 142 Potassium Level 3.8 Chloride Level 107 Carbon Dioxide Level 26.4 Anion Gap 9 Blood Urea Nitrogen 13 Creatinine 1.01 Estimat Glomerular Filtration 53 Rate Random Glucose 103 Calcium Level 8.2 Problem Qualifiers (1) HTN (hypertension): Qualified Code: I10 - Essential hypertension Clemente Begum MD Oct 03, 2016 08:06
[2016-10-03] MEDS: SERTRALINE HCL 100 MG TAB PO SCH ×2 (09:00→11:05)
[2016-10-03] MEDS ORDERED: LISINOPRIL 5 MG TAB PO SCH (09:00)
[2016-10-03] MEDS: THIAMINE HCL 100 MG TAB PO SCH ×2 (09:00→11:06)
[2016-10-03] MEDS: SODIUM CHLORIDE 0.9% FLUSH 5 ML FLUSH FLUSH SCH ×2 (09:00→23:45)
--- NOTE | 2016-10-03 09:08 | HHI.PR ---
Subjective Remarks This is a pleasant 76 y/o Female who was brought in by EMS for right sided weakness and aphasia, the last time seen Normal was yesterday night, she was found by a friend this morning unable to Speak and with right sided weakness she has history of CVA last year ans was seen by her PCP, she has some mild residual weakness since then, the patient was unable to provide information, she has Hypertension, DM II, Hyperlipidemia, Status post Hysterectomy has Dysarthria, the patient is heavy smoker one pack of cigarettes daily. unable to move her right side, will need early Physical Therapy and Occupational Therapy, Speech therapy. 10/03 Patient seen in the room in the presence of nurse Miss Ross and her Daughter Miss Edna Almanza all questions answered, she will need Inpatient Rehabilitation, stable followed by Neurology specialist. Left Carotid artery Occlusion non amenable for procedure to to the magnitude of the Occlusion. Echocardiogram EF 55 to 60%. Objective Vital Signs Date Time Temp Pulse Resp B/P Pulse Ox O2 Delivery O2 Flow Rate FiO2 10/03/16 06:00 64 10/03/16 04:00 98.6 71 18 132/72 93 10/03/16 04:00 71 10/03/16 02:00 69 10/03/16 00:00 98.2 64 18 125/66 99 10/03/16 00:00 64 10/02/16 22:00 80 10/02/16 20:00 98.6 73 24 122/75 96 10/02/16 20:00 68 10/02/16 19:00 98 Room Air 10/02/16 18:00 98.8 73 18 124/73 96 10/02/16 18:00 73 10/02/16 18:00 97 Room Air 10/02/16 17:30 61 17 137/62 97 10/02/16 16:23 64 16 137/64 98 Room Air 10/02/16 14:43 67 17 132/62 96 Room Air 10/02/16 13:09 65 16 125/58 96 Room Air 10/02/16 12:48 98 Nasal Cannula 2.00 10/02/16 12:45 68 16 95 Room Air 10/02/16 12:36 94 Room Air 10/02/16 12:36 97 Nasal Cannula 2 10/02/16 12:21 98.0 66 16 151/67 98 I/O 10/02/16 10/02/16 10/02/16 10/03/16 10/03/16 10/03/16 07:00 15:00 23:00 07:00 15:00 23:00 Intake Total 527 ml 660 ml Balance 527 ml 660 ml Intake IV Total 527 ml 660 ml # Voids 4 3 Result Diagram: 10/03/16 0459 10/03/16 0459 Imaging Last Impressions Neck Magnetic Resonance Angiography 10/02/16 1218 Signed Impressions: Service Date/Time: September 13:49 - CONCLUSION: Occluded left internal carotid at its origin through the skull base. Ha Mancilla MD FACR Head Magnetic Resonance Angiography 10/02/16 1218 Signed Impressions: Service Date/Time: September 13:49 - CONCLUSION: 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 Minimal flow is seen in the left posterior cerebral artery. Andrew Bui MD Brain MRI 10/02/168 Signed Impressions: Service Date/Time: September 13:49 - CONCLUSION: 1. Acute nonhemorrhagic left MCA territory infarction with signal involving the left ICA and MCA consistent with thrombus. 2. Encephalomalacia in the left occipital lobe. 3. Chronic small vessel ischemic change. 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 Otherwise, negative for an acute process. MRI is pending. aH Mancilla MD FACR Chest X-Ray 10/02/16 0000 Signed Impressions: Service Date/Time: September 12:46 - CONCLUSION: No acute disease. Andrew Bui MD Procedures No procedures performed. Other Results Laboratory Tests Test 10/02/16 10/02/16 10/02/16 10/02/16 12:10 12:52 15:05 18:15 Bedside Hemoglobin 12.6 G/DL Bedside Hematocrit 37.0 % Activated Partial 22.9 SEC Thromboplast Time Fibrinogen 270 mg/dL Bedside Sodium 140 MMOL/L Bedside Potassium 3.9 MMOL/L Bedside Chloride 103 MMOL/L Bedside Blood Urea Nitrogen 16 MG/DL Bedside Creatinine 1.0 MG/DL Bedside Glucose 138 MG/DL Urine Color YELLOW Urine Turbidity CLEAR Urine pH 5.5 Urine Specific [place] 1.025 Urine Protein TRACE mg/dL Urine Glucose (UA) NEG mg/dL Urine Ketones NEG mg/dL Urine Occult Blood NEG Urine Nitrite NEG Urine Bilirubin NEG Urine Urobilinogen LESS THAN 2.0 MG/DL Urine Leukocyte Esterase NEG Urine RBC 1 /hpf Urine WBC 2 /hpf Urine Mucus FEW /lpf Blood Type A POSITIVE Antibody Screen NEGATIVE Blood Bank Comment Nasal Screen MRSA (PCR) NEGATIVE Test 10/03/16 10/03/16 00:22 04:59 Total Creatine Kinase 122 U/L Troponin I LESS THAN 0.02 NG/ML White Blood Count 8.6 TH/MM3 Red Blood Count 4.03 MIL/MM3 Hemoglobin 11.9 GM/DL Hematocrit 36.7 % Mean Corpuscular Volume 91.1 FL Mean Corpuscular Hemoglobin 29.7 PG Mean Corpuscular Hemoglobin 32.6 % Concent Red Cell Distribution Width 12.1 % Platelet Count 137 TH/MM3 Mean Platelet Volume 9.5 FL Neutrophils (%) (Auto) 62.8 % Lymphocytes (%) (Auto) 29.2 % Monocytes (%) (Auto) 6.9 % Eosinophils (%) (Auto) 0.7 % Basophils (%) (Auto) 0.4 % Neutrophils # (Auto) 5.4 TH/MM3 Lymphocytes # (Auto) 2.5 TH/MM3 Monocytes # (Auto) 0.6 TH/MM3 Eosinophils # (Auto) 0.1 TH/MM3 Basophils # (Auto) 0.0 TH/MM3 CBC Comment DIFF FINAL Differential Comment Prothrombin Time 10.8 SEC Prothromb Time International 1.0 RATIO Ratio Sodium Level 142 MEQ/L Potassium Level 3.8 MEQ/L Chloride Level 107 MEQ/L Carbon Dioxide Level 26.4 MEQ/L Anion Gap 9 MEQ/L Blood Urea Nitrogen 13 MG/DL Creatinine 1.01 MG/DL Estimat Glomerular Filtration 53 ML/MIN Rate Random Glucose 103 MG/DL Calcium Level 8.2 MG/DL Objective Remarks GENERAL: Obese patient alert and oriented but with Dysarthria. SKIN: Warm and dry. HEAD: Normocephalic. EYES: No scleral icterus. No injection or drainage. Pupils 2 mm equal reactive. NECK: Supple, trachea midline. No JVD or lymphadenopathy. CARDIOVASCULAR: Regular rate and rhythm without murmurs, gallops, or rubs. RESPIRATORY: Breath sounds equal bilaterally. No accessory muscle use. GASTROINTESTINAL: Abdomen soft, non-tender, nondistended. MUSCULOSKELETAL: No cyanosis, or edema. BACK: Nontender without obvious deformity. No CVA tenderness. NEUROLOGY: Patient is awake, alert and looks oriented, unable to move her right arm and right leg. Mild drooping on the right side of face. Deep tendon reflexes 1+ and equal. Negative Babinski. Dysarthria. Medications and IVs Current Medications Medications (Trade) Dose Ordered Sig/Lauren Route Start Time Stop Time Status Last Admin (Zoloft) 100 mg DAILY PO 10/03/16 09:00 (Restoril) 15 mg HS PRN PO 10/02/16 16:30 (Vitamin B1) 100 mg DAILY PO 10/03/16 09:00 (Pravachol) 80 mg HS PO 10/02/16 21:00 Aspirin 300 mg 300 mg DAILY RECTAL 10/02/16 17:00 10/02/16 17:18 (NS 1000 ml Inj) 1,000 ml @ 83 mls/hr Q12H3M IV 10/02/16 17:00 10/02/16 18:19 (NS Flush) 2 ml UNSCH PRN FLUSH 10/02/16 16:30 (NS Flush) 2 ml BID FLUSH 10/02/16 21:00 10/02/16 19:39 (Tylenol) 650 mg Q4H PRN PO 10/02/16 17:00 (Zofran Inj) 4 mg Q6H PRN IVP 10/02/16 17:00 (Dulcolax Supp) 10 mg DAILY PRN [place] 10/02/16 17:00 (Colace) 100 mg Q12H PO 10/02/16 17:00 (Lovenox Inj) 40 mg Q24H SQ 10/02/16 17:00 10/02/16 17:19 Naloxone HCl 0.4 mg 0.4 mg UNSCH PRN IV 10/02/16 16:30 (Keppra Inj/NS Inj) 105 ml @ 420 mls/hr Q12HR IV 10/02/16 21:00 10/02/16 19:39 A/P Assessment and Plan 1. Acute Left Arterial Ischemic Stroke, ICA Internal Carotid Artery Occlusion, Moderate to large occlusion questioned by Neurology specialist possible Acute thrombosis of Stenotic. not considered for tPA in ER Echocardiogram EF 55-60%. PT Short term rehab. now able to eat on Heart Healthy diet and ADA diet. 2. Left Carotid Artery Occlusion not amenable for procedure to the high compromise. 3. 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 not yet EEG in EMR. 4. Hypertension controlled on hold Lisinopril 5 mg continue IV fluids. 5. Hyperlipidemia to continue Statins 6. CVA last year 7. DM II continue sliding scale she is NPO. 8. Obesity strongly recommended diet and exercise as outpatient, 9. Severe Tobacco dependence strongly recommended to stop smoking. DVT prophylaxis with Lovenox Discussed with patient and his Daughter Miss Nyla Almanza in the room appreciated. Code Status Full Code. Discharge Planning Awaiting final recommendations by Neurology specialist for discharge. Gabriel Salazar MD Oct 03, 2016 09:07 Left ICA occlusion, Questioned acute thrombosis of stenotic left carotid versus Acute occlusion secondary to Emboli No intervention possible for Left Carotid Artery Occlusion, Seizures on Keppra, Gabriel Salazar MD Oct 03, 2016 09:07 Gabriel Salazar MD Oct 03, 2016 09:07
[2016-10-03] MEDS: levETIRAcetam INJ 500 MG in SODIUM CHLORIDE 0.9% INJ 100 ML IV SCH ×2 (09:25→23:44)
[2016-10-03] MEDS: ASPIRIN 300 MG SUPP RECTAL SCH (09:25)
--- NOTE | 2016-10-03 12:00 | EC ---
Study Study Date:10/03/2016 STUDY CONCLUSIONS SUMMARY - Procedure narrative: Transthoracic echocardiography. Image quality was poor. Scanning was performed from the parasternal, apical, and subcostal acoustic windows. - Left ventricle: The cavity size was normal. Wall thickness was normal. Systolic function was normal. The estimated ejection fraction was in the range of 55% to 60%. Wall motion was normal; there were no regional wall motion abnormalities. - Aortic valve: Mild regurgitation. - Mitral valve: Mild regurgitation. If LV function is below 40, please consider prescribing an ACEI or ARB or document rationale for non-use. PROCEDURE DATA STUDY STATUS: Elective. Procedure: Transthoracic echocardiography. Image quality was poor. Scanning was performed from the parasternal, apical, and subcostal acoustic windows. Study completion: The patient tolerated the procedure well. Transthoracic echocardiography. M-mode, complete 2D, complete spectral Doppler, and color Doppler. Height: Height: 64in. Weight: Weight: 182.6lb. Body mass index: BMI: 31.4kg/m^2. Body surface area: BSA: 1.88m^2. Patient status: Inpatient. CARDIAC ANATOMY LEFT VENTRICLE: The cavity size was normal. Wall thickness was normal. Systolic function was normal. The estimated ejection fraction was in the range of 55% to 60%. Wall motion was normal; there were no regional wall motion abnormalities. AORTIC VALVE: Trileaflet; normal thickness leaflets. Doppler: Transvalvular velocity was within the normal range. There was no stenosis. Mild regurgitation. AORTA: Aortic root: The aortic root was normal in size. MITRAL VALVE: Structurally normal valve. Doppler: Transvalvular velocity was within the normal range. There was no evidence for stenosis. Mild regurgitation. Valve area by pressure half-time: 3.93cm^2. Indexed valve area by pressure half-time: 2.09cm^2/m^2. Peak gradient: 2mm Hg (D). LEFT ATRIUM: The atrium was normal in size. RIGHT VENTRICLE: The cavity size was normal. Wall thickness was normal. PULMONIC VALVE: Doppler: Transvalvular velocity was within the normal range. There was no evidence for stenosis. No regurgitation. TRICUSPID VALVE: Structurally normal valve. Doppler: Transvalvular velocity was within the normal range. No regurgitation. PULMONARY ARTERY: The main pulmonary artery was normal-sized. Systolic pressure was within the normal range. RIGHT ATRIUM: The atrium was normal in size. PERICARDIUM: There was no pericardial effusion. SYSTEMIC VEINS: Inferior vena cava: The vessel was normal in size. Patient weight: 182.6lb _Ejection fraction:_ 65-75% _Fractional shortening:_ 32% up to 5Kg 5-11.5Kg 11.6-22.9Kg 23-45Kg 45-57Kg Aortic Root 7-13 <17 13-22 17-27 17-27 LA diam 6-13 <23 24-38 33-47 37-40 RVID 10-17 7-15 7-15 7-18 8-17 LVIDd 12-22 <32 24-38 33-47 37-40 LVPW 2-4 3-6 5-7 6-8 7-8 IVS 2-4 3-6 5-7 6-8 7-8 BASIC MEASUREMENTS ADULT NORMAL Left ventricle LV internal dimension, ED, chordal 43.2 mm 43-52 level, PLAX LV internal dimension, ES, chordal 28.9 mm 23-38 level, PLAX Fractional shortening, chordal level, 33 % >29 PLAX LV posterior wall thickness, ED 10.7 mm IVS/LVPW ratio, ED 1.02 <1.3 Ventricular septum Septal thickness, ED 10.9 mm Aortic valve Leaflet separation 20 mm 15-26 Left atrium Anterior-posterior dimension 32 mm Anterior-posterior dimension index 1.7 cm/m^2 <2.2 Right ventricle RV internal dimension, ED, PLAX 28 mm 19-38 BASIC MEASUREMENTS ADULT NORMAL Aortic valve Leaflet separation 20 mm 15-26 Aorta Root diameter, ED 36 mm 20-37 DOPPLER MEASUREMENTS ADULT NORMAL Aortic valve Peak velocity, S 109 cm/s Mitral valve Peak E-wave velocity 73.5 cm/s Peak A-wave velocity 75.5 cm/s Pressure half-time 56 ms Peak gradient, D 2 mm Hg Peak E/A ratio 1 Valve area, pressure half-time 3.93 cm^2 Valve area index, pressure half-time 2.09 cm^2/m^2 Pulmonic valve Peak velocity, S 74.7 cm/s LEGEND: Mean values are shown as u=mean value. Asterisk (*) michael values outside specified normal range. Prepared and signed by Roderick Law [id number]
--- NOTE | 2016-10-03 15:46 | EKG ---
Date Performed: 10/02/2016 Time Performed: 10:35:15 PTAGE: 76 years EKG: NORMAL Sinus rhythm BASELINE ARTIFACT ABNORMAL ECG PREVIOUS TRACING 09/09/2004 10.51.33 Compared to previous tracing, the patient is no longer ta chycardic. DOCTOR: Cleopatra Bejarano Interpretating Date/Time 10/03/2016 15:45:40
[2016-10-03] MEDS: ENOXAPARIN SODIUM 40 MG/0.4 ML SYRINGE SQ SCH (16:50)
[2016-10-03] MEDS: SODIUM CHLOR 0.9% 1000 ML INJ 1,000 ML IV SCH (16:50)
[2016-10-03 19:45] LABS: LDL CHOLESTEROL 64 MG/DL (0-99)
[2016-10-03 22:56] LABS: HEMOGLOBIN A1a 0.9 %; HEMOGLOBIN A1b 2.1 %; HEMOGLOBIN LA1C 1.9 %; HEMOGLOBIN P3 4.1 %
[2016-10-03] MEDS: PRAVASTATIN SOD 80 MG TAB PO SCH (23:44)
[2016-10-04] VITALS (8 sets, daily range): BP systolic 131–143; BP diastolic 60–75; PULSE 65–77; RESP 14–21; TEMP 98.3–99.7; O2SAT 91–97
[2016-10-04] MEDS: DOCUSATE SODIUM 100 MG CAP PO SCH ×2 (05:00→16:48)
[2016-10-04] MEDS: SODIUM CHLOR 0.9% 1000 ML INJ 1,000 ML IV SCH ×2 (05:09→17:12)
[2016-10-04] MEDS: INSULIN NovoLIN REGULAR SUPPLEMENTAL SCALE SQ SCH ×4 (06:49→20:56)
[2016-10-04] MEDS: levETIRAcetam INJ 500 MG in SODIUM CHLORIDE 0.9% INJ 100 ML IV SCH ×2 (08:44→20:51)
[2016-10-04] MEDS: SODIUM CHLORIDE 0.9% FLUSH 5 ML FLUSH FLUSH SCH ×2 (08:44→20:52)
[2016-10-04] MEDS: THIAMINE HCL 100 MG TAB PO SCH (08:44)
[2016-10-04] MEDS: ASPIRIN 300 MG SUPP RECTAL SCH (08:44)
[2016-10-04] MEDS: SERTRALINE HCL 100 MG TAB PO SCH (08:46)
--- NOTE | 2016-10-04 09:37 | HHI.PR ---
Subjective Remarks This is a pleasant 76 y/o Female who was brought in by EMS for right sided weakness and aphasia, the last time seen Normal was yesterday night, she was found by a friend this morning unable to Speak and with right sided weakness she has history of CVA last year ans was seen by her PCP, she has some mild residual weakness since then, the patient was unable to provide information, she has Hypertension, DM II, Hyperlipidemia, Status post Hysterectomy has Dysarthria, the patient is heavy smoker one pack of cigarettes daily. unable to move her right side, will need early Physical Therapy and Occupational Therapy, Speech therapy. 10/03 Patient seen in the room in the presence of nurse Miss Ross and her Daughter Miss Edna Almanza all questions answered, she will need Inpatient Rehabilitation, stable followed by Neurology specialist. Left Carotid artery Occlusion non amenable for procedure to to the magnitude of the Occlusion. Echocardiogram EF 55 to 60%. 10/04 Patient stable in her bedroom improving slowly will need rehab at discharge , discussed with nurse Miss Alicja green, no new issues, awaiting final by Neurology specialist for discharge. Objective Vital Signs Date Time Temp Pulse Resp B/P Pulse Ox O2 Delivery O2 Flow Rate FiO2 10/04/16 07:00 96 Nasal Cannula 2.00 10/04/16 06:00 72 10/04/16 04:00 69 10/04/16 04:00 99.1 69 21 136/60 91 10/04/16 03:00 Nasal Cannula 2.00 10/04/16 02:00 74 10/04/16 00:00 69 10/04/16 00:00 98.9 69 14 143/63 94 10/03/16 22:00 74 10/03/16 20:50 94 10/03/16 20:00 83 10/03/16 20:00 99.2 72 21 129/66 95 10/03/16 18:00 75 10/03/16 16:00 98.4 66 29 115/72 93 10/03/16 16:00 66 10/03/16 14:00 76 10/03/16 12:46 94 21 10/03/16 12:00 85 10/03/16 12:00 98.4 85 10 142/78 94 10/03/16 10:00 89 I/O 10/03/16 10/03/16 10/03/16 10/04/1618/17 3/18/17 07:00 15:00 23:00 07:00 15:00 23:00 Intake Total 660 ml 287 ml 784 ml 554 ml Balance 660 ml 287 ml 784 ml 554 ml Intake Oral 120 ml IV Total 660 ml 287 ml 664 ml 554 ml # Voids 3 2 3 3 # Bowel Movements 0 0 Result Diagram: 10/03/16 0459 10/03/16 0459 Imaging Last Impressions Neck Magnetic Resonance Angiography 10/02/168 Signed Impressions: Service Date/Time: September 13:49 - CONCLUSION: Occluded left internal carotid at its origin through the skull base. Ha Mancilla MD FACR Head Magnetic Resonance Angiography 10/02/161217 Signed Impressions: Service Date/Time: September 13:49 - CONCLUSION: 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 Minimal flow is seen in the left posterior cerebral artery. Andrew Bui MD Brain MRI 10/02/161217 Signed Impressions: Service Date/Time: September 13:49 - CONCLUSION: 1. Acute nonhemorrhagic left MCA territory infarction with signal involving the left ICA and MCA consistent with thrombus. 2. Encephalomalacia in the left occipital lobe. 3. Chronic small vessel ischemic change. 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 Otherwise, negative for an acute process. MRI is pending. Ha Mancilla MD FACR Chest X-Ray 10/02/16 0000 Signed Impressions: Service Date/Time: September 12:46 - CONCLUSION: No acute disease. Andrew Bui MD Procedures No procedures performed. Other Results Laboratory Tests Test 10/02/16 10/02/16 10/02/16 10/02/16 12:10 12:52 15:05 18:15 Bedside Hemoglobin 12.6 G/DL Bedside Hematocrit 37.0 % Activated Partial 22.9 SEC Thromboplast Time Fibrinogen 270 mg/dL Bedside Sodium 140 MMOL/L Bedside Potassium 3.9 MMOL/L Bedside Chloride 103 MMOL/L Bedside Blood Urea Nitrogen 16 MG/DL Bedside Creatinine 1.0 MG/DL Bedside Glucose 138 MG/DL Urine Color YELLOW Urine Turbidity CLEAR Urine pH 5.5 Urine Specific [place] 1.025 Urine Protein TRACE mg/dL Urine Glucose (UA) NEG mg/dL Urine Ketones NEG mg/dL Urine Occult Blood NEG Urine Nitrite NEG Urine Bilirubin NEG Urine Urobilinogen LESS THAN 2.0 MG/DL Urine Leukocyte Esterase NEG Urine RBC 1 /hpf Urine WBC 2 /hpf Urine Mucus FEW /lpf Blood Type A POSITIVE Antibody Screen NEGATIVE Blood Bank Comment Nasal Screen MRSA (PCR) NEGATIVE Test 10/03/16 10/03/16 00:22 04:59 Total Creatine Kinase 122 U/L Troponin I LESS THAN 0.02 NG/ML White Blood Count 8.6 TH/MM3 Red Blood Count 4.03 MIL/MM3 Hemoglobin 11.9 GM/DL Hematocrit 36.7 % Mean Corpuscular Volume 91.1 FL Mean Corpuscular Hemoglobin 29.7 PG Mean Corpuscular Hemoglobin 32.6 % Concent Red Cell Distribution Width 12.1 % Platelet Count 137 TH/MM3 Mean Platelet Volume 9.5 FL Neutrophils (%) (Auto) 62.8 % Lymphocytes (%) (Auto) 29.2 % Monocytes (%) (Auto) 6.9 % Eosinophils (%) (Auto) 0.7 % Basophils (%) (Auto) 0.4 % Neutrophils # (Auto) 5.4 TH/MM3 Lymphocytes # (Auto) 2.5 TH/MM3 Monocytes # (Auto) 0.6 TH/MM3 Eosinophils # (Auto) 0.1 TH/MM3 Basophils # (Auto) 0.0 TH/MM3 CBC Comment DIFF FINAL Differential Comment Prothrombin Time 10.8 SEC Prothromb Time International 1.0 RATIO Ratio Sodium Level 142 MEQ/L Potassium Level 3.8 MEQ/L Chloride Level 107 MEQ/L Carbon Dioxide Level 26.4 MEQ/L Anion Gap 9 MEQ/L Blood Urea Nitrogen 13 MG/DL Creatinine 1.01 MG/DL Estimat Glomerular Filtration 53 ML/MIN Rate Random Glucose 103 MG/DL Hemoglobin A1c 6.3 % Calcium Level 8.2 MG/DL Triglycerides Level 166 MG/DL Cholesterol Level 133 MG/DL LDL Cholesterol 64 MG/DL HDL Cholesterol 36.0 MG/DL Cholesterol/HDL Ratio 3.69 RATIO Objective Remarks GENERAL: Obese patient alert and oriented but with Dysarthria. SKIN: Warm and dry. HEAD: Normocephalic. EYES: No scleral icterus. No injection or drainage. Pupils 2 mm equal reactive. NECK: Supple, trachea midline. No JVD or lymphadenopathy. CARDIOVASCULAR: Regular rate and rhythm without murmurs, gallops, or rubs. RESPIRATORY: Breath sounds equal bilaterally. No accessory muscle use. GASTROINTESTINAL: Abdomen soft, non-tender, nondistended. MUSCULOSKELETAL: No cyanosis, or edema. BACK: Nontender without obvious deformity. No CVA tenderness. NEUROLOGY: Patient is awake, alert and looks oriented, unable to move her right arm and right leg. Mild drooping on the right side of face. Deep tendon reflexes 1+ and equal. Negative Babinski. Dysarthria. Medications and IVs Current Medications Medications (Trade) Dose Ordered Sig/Lauren Route Start Time Stop Time Status Last Admin (Zoloft) 100 mg DAILY PO 10/03/16 09:00 10/04/16 08:46 (Restoril) 15 mg HS PRN PO 10/02/16 16:30 (Vitamin B1) 100 mg DAILY PO 10/03/16 09:00 10/04/16 08:44 (Pravachol) 80 mg HS PO 10/02/16 21:00 10/03/16 23:44 Aspirin 300 mg 300 mg DAILY RECTAL 10/02/16 17:00 10/04/16 08:44 (NS 1000 ml Inj) 1,000 ml @ 83 mls/hr Q12H3M IV 10/02/16 17:00 10/02/16 18:19 (NS Flush) 2 ml UNSCH PRN FLUSH 10/02/16 16:30 (NS Flush) 2 ml BID FLUSH 10/02/16 21:00 10/04/16 08:44 (Tylenol) 650 mg Q4H PRN PO 10/02/16 17:00 (Zofran Inj) 4 mg Q6H PRN IVP 10/02/16 17:00 (Dulcolax Supp) 10 mg DAILY PRN GA 10/02/16 17:00 (Colace) 100 mg Q12H PO 10/02/16 17:00 10/03/16 16:50 (Lovenox Inj) 40 mg Q24H SQ 10/02/16 17:00 3/17/17 16:50 Naloxone HCl 0.4 mg 0.4 mg UNSCH PRN IV 10/02/16 16:30 (Keppra Inj/NS Inj) 105 ml @ 420 mls/hr Q12HR IV 10/02/16 21:00 10/04/16 08:44 A/P Assessment and Plan 1. Acute Left Arterial Ischemic Stroke, ICA Internal Carotid Artery Occlusion, Moderate to large occlusion questioned by Neurology specialist possible Acute thrombosis of Stenotic. not considered for tPA in ER Echocardiogram EF 55-60%. PT Short term rehab. now able to eat on Heart Healthy diet and ADA diet. 2. Left Carotid Artery Occlusion not amenable for procedure to the high compromise. 3. 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 not yet EEG in EMR. 4. Hypertension controlled on hold Lisinopril 5 mg continue IV fluids. 5. Hyperlipidemia to continue Statins 6. CVA last year 7. DM II continue sliding scale re started diet well controlled on Sliding scale. 8. Obesity strongly recommended diet and exercise as outpatient, 9. Severe Tobacco dependence strongly recommended to stop smoking. DVT prophylaxis with Lovenox Discussed with patient and nurse Miss Helm no new issues. Code Status Full Code. Discharge Planning Awaiting final recommendations by Neurology specialist for discharge. Gabriel Salazar MD Oct 04, 2016 09:37
[2016-10-04] MEDS ORDERED: GLUCAGON 1 MG/ML VIAL OTHER PRN (11:00)
[2016-10-04] MEDS ORDERED: DEXTROSE 50% IN WATER 50 ML VIAL(D50) IV PUSH PRN (11:00)
--- NOTE | 2016-10-04 11:29 | MG ---
cc: CORDELIA DHILLON MD Lab No: [id number] Date: 10/03/2016 Age: 76 Sex: F Race: HISTORY: 76-year-old female with history of mental status changes, weakness and difficulty speaking, history of seizures on Keppra. DESCRIPTION OF THE RECORD: Generalized slowing with asymmetric left hemispheric slowing noted in a subtle fashion. 2-4 Hz delta activity with superimposed 4-6 Hz theta and 20-50 microvolts. Mild EEG variability and reactivity. Limited driving with photic stimulation. Single lead EKG showing sinus rhythm. INTERPRETATION: Mild to moderate encephalopathy with mild asymmetric left hemispheric slowing. Clinical correlation. MD SUSAN Acuna/ANIYAH /10:15 AM /11:22 AM
[2016-10-04] MEDS: ENOXAPARIN SODIUM 40 MG/0.4 ML SYRINGE SQ SCH (16:48)
[2016-10-04] MEDS: TEMAZEPAM 15 MG CAP PO PRN (20:53)
[2016-10-04] MEDS: PRAVASTATIN SOD 80 MG TAB PO SCH (20:59)
[2016-10-05] VITALS (7 sets, daily range): BP systolic 120–162; BP diastolic 60–79; PULSE 73–79; RESP 18–22; TEMP 97.4–100.2; O2SAT 95–98
[2016-10-05] MEDS: DOCUSATE SODIUM 100 MG CAP PO SCH ×2 (04:44→17:26)
[2016-10-05] MEDS: SODIUM CHLOR 0.9% 1000 ML INJ 1,000 ML IV SCH (04:44)
[2016-10-05] MEDS: INSULIN NovoLIN REGULAR SUPPLEMENTAL SCALE SQ SCH ×4 (04:44→20:41)
[2016-10-05] MEDS: levETIRAcetam INJ 500 MG in SODIUM CHLORIDE 0.9% INJ 100 ML IV SCH ×2 (08:04→20:42)
[2016-10-05] MEDS: ASPIRIN 325 MG TAB PO SCH (08:05)
[2016-10-05] MEDS: SERTRALINE HCL 100 MG TAB PO SCH (08:05)
[2016-10-05] MEDS: THIAMINE HCL 100 MG TAB PO SCH (08:05)
[2016-10-05] MEDS: SODIUM CHLORIDE 0.9% FLUSH 5 ML FLUSH FLUSH SCH ×2 (08:05→20:42)
--- NOTE | 2016-10-05 08:23 | HHI.PR ---
Subjective Remarks This is a pleasant 76 y/o Female who was brought in by EMS for right sided weakness and aphasia, the last time seen Normal was yesterday night, she was found by a friend this morning unable to Speak and with right sided weakness she has history of CVA last year ans was seen by her PCP, she has some mild residual weakness since then, the patient was unable to provide information, she has Hypertension, DM II, Hyperlipidemia, Status post Hysterectomy has Dysarthria, the patient is heavy smoker one pack of cigarettes daily. unable to move her right side, will need early Physical Therapy and Occupational Therapy, Speech therapy. 10/03 Patient seen in the room in the presence of nurse Miss Ross and her Daughter Miss Edna Almanza all questions answered, she will need Inpatient Rehabilitation, stable followed by Neurology specialist. Left Carotid artery Occlusion non amenable for procedure to to the magnitude of the Occlusion. Echocardiogram EF 55 to 60%. 10/04 Patient stable in her bedroom improving slowly will need rehab at discharge , discussed with nurse Miss Alicja green, no new issues, awaiting final by Neurology specialist for discharge. 10/05 Stable in her bedroom, discussed with nurse Miss Sutherland and with country manager she may be discharged tomorrow morning to Rehab facility. Objective Vital Signs Date Time Temp Pulse Resp B/P Pulse Ox O2 Delivery O2 Flow Rate FiO2 10/05/16 07:45 97.4 77 18 162/74 97 10/05/16 04:05 99.2 76 18 147/79 96 10/05/16 00:26 99.7 79 20 151/72 96 10/04/16 20:42 99.7 77 18 142/75 94 10/04/16 16:00 99.5 74 18 131/63 94 10/04/16 12:22 98.3 74 18 132/62 97 I/O 10/04/16 10/04/16 10/04/16 10/05/16 10/05/16 10/05/16 07:00 15:00 23:00 07:00 15:00 23:00 Intake Total 554 ml Balance 554 ml IV Total 554 ml # Voids 3 2 2 # Bowel Movements 0 Result Diagram: 10/03/16 0459 10/03/16 0459 Imaging Last Impressions Neck Magnetic Resonance Angiography 10/02/16 1218 Signed Impressions: Service Date/Time: September 13:49 - CONCLUSION: Occluded left internal carotid at its origin through the skull base. aH Mancilla MD FACR Head Magnetic Resonance Angiography 10/02/16 1218 Signed Impressions: Service Date/Time: September 13:49 - CONCLUSION: 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 Minimal flow is seen in the left posterior cerebral artery. Andrew Bui MD Brain MRI 10/02/16 1218 Signed Impressions: Service Date/Time: September 13:49 - CONCLUSION: 1. Acute nonhemorrhagic left MCA territory infarction with signal involving the left ICA and MCA consistent with thrombus. 2. Encephalomalacia in the left occipital lobe. 3. Chronic small vessel ischemic change. 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 Otherwise, negative for an acute process. MRI is pending. Ha Mancilla MD FACR Chest X-Ray 10/02/16 0000 Signed Impressions: Service Date/Time: September 12:46 - CONCLUSION: No acute disease. Andrew Bui MD Procedures No procedures performed. Other Results Laboratory Tests Test 10/02/16 10/02/16 10/02/16 10/02/16 12:10 12:52 15:05 18:15 Bedside Hemoglobin 12.6 G/DL Bedside Hematocrit 37.0 % Activated Partial 22.9 SEC Thromboplast Time Fibrinogen 270 mg/dL Bedside Sodium 140 MMOL/L Bedside Potassium 3.9 MMOL/L Bedside Chloride 103 MMOL/L Bedside Blood Urea Nitrogen 16 MG/DL Bedside Creatinine 1.0 MG/DL Bedside Glucose 138 MG/DL Urine Color YELLOW Urine Turbidity CLEAR Urine pH 5.5 Urine Specific [place] 1.025 Urine Protein TRACE mg/dL Urine Glucose (UA) NEG mg/dL Urine Ketones NEG mg/dL Urine Occult Blood NEG Urine Nitrite NEG Urine Bilirubin NEG Urine Urobilinogen LESS THAN 2.0 MG/DL Urine Leukocyte Esterase NEG Urine RBC 1 /hpf Urine WBC 2 /hpf Urine Mucus FEW /lpf Blood Type A POSITIVE Antibody Screen NEGATIVE Blood Bank Comment Nasal Screen MRSA (PCR) NEGATIVE Test 10/03/16 10/03/16 00:22 04:59 Total Creatine Kinase 122 U/L Troponin I LESS THAN 0.02 NG/ML White Blood Count 8.6 TH/MM3 Red Blood Count 4.03 MIL/MM3 Hemoglobin 11.9 GM/DL Hematocrit 36.7 % Mean Corpuscular Volume 91.1 FL Mean Corpuscular Hemoglobin 29.7 PG Mean Corpuscular Hemoglobin 32.6 % Concent Red Cell Distribution Width 12.1 % Platelet Count 137 TH/MM3 Mean Platelet Volume 9.5 FL Neutrophils (%) (Auto) 62.8 % Lymphocytes (%) (Auto) 29.2 % Monocytes (%) (Auto) 6.9 % Eosinophils (%) (Auto) 0.7 % Basophils (%) (Auto) 0.4 % Neutrophils # (Auto) 5.4 TH/MM3 Lymphocytes # (Auto) 2.5 TH/MM3 Monocytes # (Auto) 0.6 TH/MM3 Eosinophils # (Auto) 0.1 TH/MM3 Basophils # (Auto) 0.0 TH/MM3 CBC Comment DIFF FINAL Differential Comment Prothrombin Time 10.8 SEC Prothromb Time International 1.0 RATIO Ratio Sodium Level 142 MEQ/L Potassium Level 3.8 MEQ/L Chloride Level 107 MEQ/L Carbon Dioxide Level 26.4 MEQ/L Anion Gap 9 MEQ/L Blood Urea Nitrogen 13 MG/DL Creatinine 1.01 MG/DL Estimat Glomerular Filtration 53 ML/MIN Rate Random Glucose 103 MG/DL Hemoglobin A1c 6.3 % Calcium Level 8.2 MG/DL Triglycerides Level 166 MG/DL Cholesterol Level 133 MG/DL LDL Cholesterol 64 MG/DL HDL Cholesterol 36.0 MG/DL Cholesterol/HDL Ratio 3.69 RATIO Objective Remarks GENERAL: Obese patient alert and oriented but with Dysarthria. SKIN: Warm and dry. HEAD: Normocephalic. EYES: No scleral icterus. No injection or drainage. Pupils 2 mm equal reactive. NECK: Supple, trachea midline. No JVD or lymphadenopathy. CARDIOVASCULAR: Regular rate and rhythm without murmurs, gallops, or rubs. RESPIRATORY: Breath sounds equal bilaterally. No accessory muscle use. GASTROINTESTINAL: Abdomen soft, non-tender, nondistended. MUSCULOSKELETAL: No cyanosis, or edema. BACK: Nontender without obvious deformity. No CVA tenderness. NEUROLOGY: Patient is awake, alert and looks oriented, unable to move her right arm and right leg. Mild drooping on the right side of face. Deep tendon reflexes 1+ and equal. Negative Babinski. Dysarthria. Medications and IVs Current Medications Medications (Trade) Dose Ordered Sig/Lauren Route Start Time Stop Time Status Last Admin (Zoloft) 100 mg DAILY PO 10/03/16 09:00 10/05/16 08:05 (Restoril) 15 mg HS PRN PO 10/02/16 16:30 10/04/16 20:53 (Vitamin B1) 100 mg DAILY PO 10/03/16 09:00 10/05/16 08:05 Pravastatin Sodium 80 mg 80 mg HS PO 10/02/16 21:00 10/04/16 20:59 (NS 1000 ml Inj) 1,000 ml @ 83 mls/hr Q12H3M IV 10/02/16 17:00 10/05/16 04:44 (NS Flush) 2 ml UNSCH PRN FLUSH 10/02/16 16:30 (NS Flush) 2 ml BID FLUSH 10/02/16 21:00 10/05/16 08:05 (Tylenol) 650 mg Q4H PRN PO 10/02/16 17:00 (Zofran Inj) 4 mg Q6H PRN IVP 10/02/16 17:00 (Dulcolax Supp) 10 mg DAILY PRN IN 10/02/16 17:00 (Colace) 100 mg Q12H PO 10/02/16 17:00 10/05/16 04:44 (Lovenox Inj) 40 mg Q24H SQ 10/02/16 17:00 10/04/16 16:48 Naloxone HCl 0.4 mg 0.4 mg UNSCH PRN IV 10/02/16 16:30 (Keppra Inj/NS Inj) 105 ml @ 420 mls/hr Q12HR IV 10/02/16 21:00 10/05/16 08:04 (Aspirin) 325 mg DAILY PO 10/05/16 09:00 10/05/16 08:05 (D50w (Vial) Inj) 25 ml UNSCH PRN IV PUSH 10/04/16 11:00 (Glucagon Inj) 1 mg UNSCH PRN OTHER 10/04/16 11:00 A/P Assessment and Plan 1. Acute Left Arterial Ischemic Stroke, ICA Internal Carotid Artery Occlusion, Moderate to large occlusion questioned by Neurology specialist possible Acute thrombosis of Stenotic. not considered for tPA in ER Echocardiogram EF 55-60%. PT Short term rehab. now able to eat on Heart Healthy diet and ADA diet. continue working with Physical Therapy and improving her Right hemiparesis. 2. Left Carotid Artery Occlusion not amenable for procedure to the diffuse compromise. 3. 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 EEG Mild to moderate Encephalopathy with mild asymmetric Left Hemispheric Slowing. 4. Hypertension controlled Lisinopril on hold now increasing to better values for her pathology following. IV fluids discontinued. 5. Hyperlipidemia to continue Statins 6. CVA last year 7. DM II continue sliding scale re started diet well controlled on Sliding scale. controlled. Hemoglobin A1C 8.2 8. Obesity strongly recommended diet and exercise as outpatient, 9. Severe Tobacco dependence strongly recommended to stop smoking. DVT prophylaxis with Lovenox Discussed with patient and nurse Miss Helm no new issues. Code Status Full Code. Discharge Planning Expected to discharge in am tomorrow to [facility] Gabriel Salazar MD Oct 05, 2016 08:23
[2016-10-05] MEDS: ENOXAPARIN SODIUM 40 MG/0.4 ML SYRINGE SQ SCH (17:26)
[2016-10-05] MEDS: TEMAZEPAM 15 MG CAP PO PRN (20:41)
[2016-10-05] MEDS: PRAVASTATIN SOD 80 MG TAB PO SCH (20:41)
[2016-10-06] VITALS (9 sets, daily range): BP systolic 118–132; BP diastolic 60–71; PULSE 68–86; RESP 18–19; TEMP 98.3–100.1; O2SAT 92–98
[2016-10-06] MEDS: INSULIN NovoLIN REGULAR SUPPLEMENTAL SCALE SQ SCH ×4 (04:39→20:39)
[2016-10-06] MEDS: DOCUSATE SODIUM 100 MG CAP PO SCH ×2 (04:39→17:05)
--- NOTE | 2016-10-06 08:27 | HHI.PR ---
Subjective Remarks This is a pleasant 76 y/o Female who was brought in by EMS for right sided weakness and aphasia, the last time seen Normal was the night before coming to ER, she was found by a friend this morning unable to Speak and with right sided weakness she has history of CVA last year ans was seen by her PCP, she has some mild residual weakness since then, she has Hypertension, DM II, Hyperlipidemia, Status post Hysterectomy has Dysarthria, the patient is heavy smoker one pack of cigarettes daily. unable to move her right side, will need early Physical Therapy and Occupational Therapy, Speech therapy. 10/03 Patient seen in the room in the presence of nurse Miss Ross and her Daughter Miss Edna Almanza all questions answered, she will need Inpatient Rehabilitation, stable followed by Neurology specialist. Left Carotid artery Occlusion non amenable for procedure to to the magnitude of the Occlusion. Echocardiogram EF 55 to 60%. 10/04 Patient stable in her bedroom improving slowly will need rehab at discharge , discussed with nurse Miss Alicja green, no new issues, awaiting final by Neurology specialist for discharge. 10/05 Stable in her bedroom, discussed with nurse Miss Sutherland and with nc manager she may be discharged tomorrow morning to Rehab facility. 10/06 Seen in her bedroom improving condition, discussed with nurse Miss Franco and with Costume Designer who is waiting for insurance authorization to transfer to [facility]. No Nausea, vomit or diarrhea. Objective Vital Signs Date Time Temp Pulse Resp B/P Pulse Ox O2 Delivery O2 Flow Rate FiO2 10/06/16 04:00 98.6 72 18 124/71 98 10/06/16 00:00 98.8 68 18 121/67 95 10/05/16 20:00 Nasal Cannula 2.00 10/05/16 20:00 100.2 73 22 126/60 98 10/05/16 15:45 99.2 76 19 126/61 95 10/05/16 15:34 98 Room Air 10/05/16 11:35 98.9 75 19 120/65 98 I/O 10/05/16 10/05/16 10/05/16 10/06/16 10/06/16 10/06/16 07:00 15:00 23:00 07:00 15:00 23:00 Intake Total 320 ml Balance 320 ml Intake Oral 320 ml # Voids 2 5 2 # Bowel Movements 0 0 Result Diagram: 3/17/17 0459 10/03/16 0459 Imaging Last Impressions Neck Magnetic Resonance Angiography 10/02/16 1218 Signed Impressions: Service Date/Time: September 13:49 - CONCLUSION: Occluded left internal carotid at its origin through the skull base. Ha Mancilla MD FACR Head Magnetic Resonance Angiography 10/02/16 1218 Signed Impressions: Service Date/Time: September 13:49 - CONCLUSION: 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 Minimal flow is seen in the left posterior cerebral artery. Andrew Bui MD Brain MRI 10/02/16 1218 Signed Impressions: Service Date/Time: September 13:49 - CONCLUSION: 1. Acute nonhemorrhagic left MCA territory infarction with signal involving the left ICA and MCA consistent with thrombus. 2. Encephalomalacia in the left occipital lobe. 3. Chronic small vessel ischemic change. 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 Otherwise, negative for an acute process. MRI is pending. Ha Mancilla MD FACR Chest X-Ray 10/02/16 0000 Signed Impressions: Service Date/Time: September 12:46 - CONCLUSION: No acute disease. Andrew Bui MD Procedures No procedures performed. Other Results Laboratory Tests Test 10/02/16 10/02/16 10/02/16 10/02/16 12:10 12:52 15:05 18:15 Bedside Hemoglobin 12.6 G/DL Bedside Hematocrit 37.0 % Activated Partial 22.9 SEC Thromboplast Time Fibrinogen 270 mg/dL Bedside Sodium 140 MMOL/L Bedside Potassium 3.9 MMOL/L Bedside Chloride 103 MMOL/L Bedside Blood Urea Nitrogen 16 MG/DL Bedside Creatinine 1.0 MG/DL Bedside Glucose 138 MG/DL Urine Color YELLOW Urine Turbidity CLEAR Urine pH 5.5 Urine Specific [place] 1.025 Urine Protein TRACE mg/dL Urine Glucose (UA) NEG mg/dL Urine Ketones NEG mg/dL Urine Occult Blood NEG Urine Nitrite NEG Urine Bilirubin NEG Urine Urobilinogen LESS THAN 2.0 MG/DL Urine Leukocyte Esterase NEG Urine RBC 1 /hpf Urine WBC 2 /hpf Urine Mucus FEW /lpf Blood Type A POSITIVE Antibody Screen NEGATIVE Blood Bank Comment Nasal Screen MRSA (PCR) NEGATIVE Test 10/03/16 10/03/16 00:22 04:59 Total Creatine Kinase 122 U/L Troponin I LESS THAN 0.02 NG/ML White Blood Count 8.6 TH/MM3 Red Blood Count 4.03 MIL/MM3 Hemoglobin 11.9 GM/DL Hematocrit 36.7 % Mean Corpuscular Volume 91.1 FL Mean Corpuscular Hemoglobin 29.7 PG Mean Corpuscular Hemoglobin 32.6 % Concent Red Cell Distribution Width 12.1 % Platelet Count 137 TH/MM3 Mean Platelet Volume 9.5 FL Neutrophils (%) (Auto) 62.8 % Lymphocytes (%) (Auto) 29.2 % Monocytes (%) (Auto) 6.9 % Eosinophils (%) (Auto) 0.7 % Basophils (%) (Auto) 0.4 % Neutrophils # (Auto) 5.4 TH/MM3 Lymphocytes # (Auto) 2.5 TH/MM3 Monocytes # (Auto) 0.6 TH/MM3 Eosinophils # (Auto) 0.1 TH/MM3 Basophils # (Auto) 0.0 TH/MM3 CBC Comment DIFF FINAL Differential Comment Prothrombin Time 10.8 SEC Prothromb Time International 1.0 RATIO Ratio Sodium Level 142 MEQ/L Potassium Level 3.8 MEQ/L Chloride Level 107 MEQ/L Carbon Dioxide Level 26.4 MEQ/L Anion Gap 9 MEQ/L Blood Urea Nitrogen 13 MG/DL Creatinine 1.01 MG/DL Estimat Glomerular Filtration 53 ML/MIN Rate Random Glucose 103 MG/DL Hemoglobin A1c 6.3 % Calcium Level 8.2 MG/DL Triglycerides Level 166 MG/DL Cholesterol Level 133 MG/DL LDL Cholesterol 64 MG/DL HDL Cholesterol 36.0 MG/DL Cholesterol/HDL Ratio 3.69 RATIO Objective Remarks GENERAL: Obese patient alert and oriented but with Dysarthria. SKIN: Warm and dry. HEAD: Normocephalic. EYES: No scleral icterus. No injection or drainage. Pupils 2 mm equal reactive. NECK: Supple, trachea midline. No JVD or lymphadenopathy. CARDIOVASCULAR: Regular rate and rhythm without murmurs, gallops, or rubs. RESPIRATORY: Breath sounds equal bilaterally. No accessory muscle use. GASTROINTESTINAL: Abdomen soft, non-tender, nondistended. MUSCULOSKELETAL: No cyanosis, or edema. BACK: Nontender without obvious deformity. No CVA tenderness. NEUROLOGY: Patient is awake, alert and looks oriented, dysarthria, improving her Right Hemiparesis slowly. Medications and IVs Current Medications Medications (Trade) Dose Ordered Sig/Lauren Route Start Time Stop Time Status Last Admin (Zoloft) 100 mg DAILY PO 10/03/16 09:00 10/05/16 08:05 (Restoril) 15 mg HS PRN PO 10/02/16 16:30 10/05/16 20:41 (Vitamin B1) 100 mg DAILY PO 10/03/16 09:00 10/05/16 08:05 (Pravachol) 80 mg HS PO 10/02/16 21:00 10/05/16 20:41 (NS Flush) 2 ml UNSCH PRN FLUSH 10/02/16 16:30 (NS Flush) 2 ml BID FLUSH 10/02/16 21:00 10/05/16 20:42 (Tylenol) 650 mg Q4H PRN PO 10/02/16 17:00 10/05/16 20:41 (Zofran Inj) 4 mg Q6H PRN IVP 10/02/16 17:00 (Dulcolax Supp) 10 mg DAILY PRN MD 10/02/16 17:00 (Colace) 100 mg Q12H PO 10/02/16 17:00 10/06/16 04:39 (Lovenox Inj) 40 mg Q24H SQ 10/02/16 17:00 10/05/16 17:26 Naloxone HCl 0.4 mg 0.4 mg UNSCH PRN IV 10/02/16 16:30 (Keppra Inj/NS Inj) 105 ml @ 420 mls/hr Q12HR IV 10/02/16 21:00 10/05/16 20:42 (Aspirin) 325 mg DAILY PO 10/05/16 09:00 10/05/16 08:05 (D50w (Vial) Inj) 25 ml UNSCH PRN IV PUSH 10/04/16 11:00 (Glucagon Inj) 1 mg UNSCH PRN OTHER 10/04/16 11:00 A/P Problem List: (1) Acute CVA (cerebrovascular accident) ICD Code: I63.9 (2) Seizure cerebral ICD Code: I67.89 (3) HTN (hypertension) ICD Code: I10 (4) Acute left arterial ischemic stroke, ICA (internal carotid artery) ICD Code: I63.232 (5) Left carotid artery occlusion ICD Code: I65.22 Assessment and Plan 1. Acute Left Arterial Ischemic Stroke, ICA Internal Carotid Artery Occlusion, Moderate to large occlusion questioned by Neurology specialist possible Acute thrombosis of Stenotic. not considered for tPA in ER Echocardiogram EF 55-60%. PT Short term rehab. now able to eat on Heart Healthy diet and ADA diet. continue working with Physical Therapy and improving her Right hemiparesis. 2. Left Carotid Artery Occlusion not amenable for procedure to the diffuse compromise. 3. 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 EEG Mild to moderate Encephalopathy with mild asymmetric Left Hemispheric Slowing. 4. Hypertension controlled 5. Hyperlipidemia to continue Statins 6. CVA last year 7. DM II continue sliding scale re started diet well controlled on Sliding scale. controlled. Hemoglobin A1C 8.2 8. Obesity strongly recommended diet and exercise as outpatient, 9. Severe Tobacco dependence strongly recommended to stop smoking. DVT prophylaxis with Lovenox Discussed with patient and nurse Miss Franco awaiting for discharge once Insurance approve her transfer to [facility] Code Status Full Code. Discharge Planning Expected to discharge later today or in am tomorrow to [facility] Problem Qualifiers (1) HTN (hypertension): Qualified Code: I10 - Essential hypertension Gabriel Salazar MD Oct 06, 2016 08:27
[2016-10-06] MEDS: THIAMINE HCL 100 MG TAB PO SCH (09:10)
[2016-10-06] MEDS: SERTRALINE HCL 100 MG TAB PO SCH (09:10)
[2016-10-06] MEDS: SODIUM CHLORIDE 0.9% FLUSH 5 ML FLUSH FLUSH SCH ×2 (09:12→20:41)
[2016-10-06] MEDS: levETIRAcetam INJ 500 MG in SODIUM CHLORIDE 0.9% INJ 100 ML IV SCH ×3 (09:12→20:37)
[2016-10-06] MEDS: ASPIRIN 325 MG TAB PO SCH (09:18)
[2016-10-06] MEDS: ENOXAPARIN SODIUM 40 MG/0.4 ML SYRINGE SQ SCH (17:05)
--- NOTE | 2016-10-06 19:11 | PD.CONS ---
[facility] Service Rehabilitation Medicine Consult Requested By Dr. Johnson Reason for Consult Comprehensive rehabilitation evaluation. Primary Care Physician Unknown History of Present Illness Елена Cummings is a 76 year old female admitted to [facility] 10/02/16 with right sided weakness and aphasia. Head CT showed old left parietal occipital infarct. Brain MRI 10/02/16 showed acute nonhemorrhagic left MCA infarct with signal involving the left ICA and MCA consistent with thrombus; encephalomalacia left occipital area and chronic small vessel ischemic changes. She was not a candidate for TpA and was started on ASA. MRA showed occlusion of left ICA and MCA with minimal flow in the left LINEN GRADER. Review of Systems ROS Limitations: Speech Impaired Past Family Social History Allergies: Coded Allergies: No Known Allergies (Verified , 10/02/16) Past Medical History CVA 2016 Seizure disorder HTN DM type 2 Hyperlipidemia Obesity Tobacco abuse Past Surgical History YOGESH Current Medications Current Medications Medications (Trade) Dose Ordered Sig/Lauren Route Start Time Stop Time Status Last Admin (Zoloft) 100 mg DAILY PO 10/03/16 09:00 10/06/16 09:10 (Restoril) 15 mg HS PRN PO 10/02/16 16:30 10/05/16 20:41 (Vitamin B1) 100 mg DAILY PO 10/03/16 09:00 10/06/16 09:10 (Pravachol) 80 mg HS PO 10/02/16 21:00 10/05/16 20:41 (NS Flush) 2 ml UNSCH PRN FLUSH 10/02/16 16:30 (NS Flush) 2 ml BID FLUSH 10/02/16 21:00 10/06/16 09:12 (Tylenol) 650 mg Q4H PRN PO 10/02/16 17:00 10/05/16 20:41 (Zofran Inj) 4 mg Q6H PRN IVP 10/02/16 17:00 (Dulcolax Supp) 10 mg DAILY PRN PA 10/02/16 17:00 10/06/16 17:05 (Colace) 100 mg Q12H PO 10/02/16 17:00 10/06/16 17:05 (Lovenox Inj) 40 mg Q24H SQ 10/02/16 17:00 10/06/16 17:05 Naloxone HCl 0.4 mg 0.4 mg UNSCH PRN IV 10/02/16 16:30 (Keppra Inj/NS Inj) 105 ml @ 420 mls/hr Q12HR IV 10/02/16 21:00 10/06/16 10:40 (Aspirin) 325 mg DAILY PO 10/05/16 09:00 10/06/16 09:18 (D50w (Vial) Inj) 25 ml UNSCH PRN IV PUSH 10/04/16 11:00 (Glucagon Inj) 1 mg UNSCH PRN OTHER 10/04/16 11:00 Family History Mother and Father CAD/HTN Social History Prior to admission lived in [place], [place]. One pack per day tobacco. No significant ETOH. Exam I&O / VS 10/05/16 10/05/16 10/06/16 15:00 23:00 07:00 Intake Total 320 ml Balance 320 ml Intake Oral 320 ml # Voids 5 2 # Bowel Movements 0 0 Vital Signs Date Time Temp Pulse Resp B/P Pulse Ox O2 Delivery O2 Flow Rate FiO2 10/06/16 15:00 98.6 71 19 132/62 95 10/06/16 12:04 69 10/06/16 11:55 98.7 75 19 121/60 98 10/06/16 11:30 98.7 75 19 121/60 98 10/06/16 11:12 97 Nasal Cannula 2.00 10/06/16 08:50 Nasal Cannula 2.00 10/06/16 07:40 98.3 68 18 128/60 97 10/06/16 04:00 98.6 72 18 124/71 98 10/06/16 00:00 98.8 68 18 121/67 95 10/05/16 20:00 Nasal Cannula 2.00 10/05/16 20:00 100.2 73 22 126/60 98 General: No acute distress Respiratory: Lungs CTA, Non-labored respirations, BS equal, Other (NC O2 in place) Gastrointestinal: Positive Bowel Sounds, Non-Distended, Non-Tender Cardiovascular: Normal peripheral perfusion, Regular Rhythm Skin: Other (No rash noted) Musculoskeletal: ROM (Within functional limits) Psychiatric: Cooperative Orientation: unable to asses Self, unable to asses Place, unable to asses Time , unable to asses Situation Neurologic: Pupils (PERRRLA), EOM (Tracks right and left), Facial Symmetry ( Right facial droop), Speech (Aphasic; producing some sounds but no single words ; unable to repeat), Other (Follows approximately 25% of simple gestured commands; oromotor apraxia) Motor: Right Upper Extremity (4/5 grossly), Left Upper Extremity (5/5 grossly) , Right Lower Extremity (4/5 grossly), Left Lower Extremity (5/5 grossly) Spasticity None noted Sensory Unable to assess Babinski: Positive (Right) Clonus: Negative Assessment and Plan Diagnosis: (1) Acute left arterial ischemic stroke, ICA (internal carotid artery) Assessment 1. Left ICA/MCA infarct with aphasia, right hemiparesis, apraxia and dysphagia 2. Previous CVA 2015 3. Seizure disorder 4. HTN 5. DM type 2 6. Hyperlipidemia 7. Obesity 8. Tobacco abuse Plan 1. Patient now min-mod assist of 2 with PT for transfer and gait 3 feet. Continue to mobilize as tolerated anticipating that patient should progress 2. OT for ADL's and min for feeding and mod-max for remainder 3. ST assessing swallow and mechanical soft diet. Aphasia being addressed 4. Patient will benefit from ongoing inpatient rehabilitation at discharge and case management is addressing/requesting insurance authorization 5. Will continue to follow while hospitalized and at discharge Thank you for this consult. Tali Vivar MD Oct 06, 2016 19:11
[2016-10-06] MEDS: PRAVASTATIN SOD 80 MG TAB PO SCH (20:39)
[2016-10-06] MEDS: TEMAZEPAM 15 MG CAP PO PRN (20:40)
[2016-10-07] VITALS: BP 133/64; PULSE 84; RESP 18; TEMP 99.4; O2SAT 96
[2016-10-07] MEDS: INSULIN NovoLIN REGULAR SUPPLEMENTAL SCALE SQ SCH (04:45)
[2016-10-07] MEDS: DOCUSATE SODIUM 100 MG CAP PO SCH (04:45)
[2016-10-07 06:20] VITALS: BP 123/66; PULSE 72; RESP 18; TEMP 100.3; O2SAT 96
[2016-10-07 08:00] VITALS: BP 118/57; PULSE 67; RESP 20; TEMP 97; O2SAT 97
--- NOTE | 2016-10-07 08:03 | HHI.PR ---
Subjective Remarks This is a pleasant 76 y/o Female who was brought in by EMS for right sided weakness and aphasia, the last time seen Normal was the night before coming to ER, she was found by a friend this morning unable to Speak and with right sided weakness she has history of CVA last year ans was seen by her PCP, she has some mild residual weakness since then, she has Hypertension, DM II, Hyperlipidemia, Status post Hysterectomy has Dysarthria, the patient is heavy smoker one pack of cigarettes daily. unable to move her right side, will need early Physical Therapy and Occupational Therapy, Speech therapy. 10/03 Patient seen in the room in the presence of nurse Miss Ross and her Daughter Miss Edna Almanza all questions answered, she will need Inpatient Rehabilitation, stable followed by Neurology specialist. Left Carotid artery Occlusion non amenable for procedure to to the magnitude of the Occlusion. Echocardiogram EF 55 to 60%. 10/04 Patient stable in her bedroom improving slowly will need rehab at discharge , discussed with nurse Miss Alicja green, no new issues, awaiting final by Neurology specialist for discharge. 10/05 Stable in her bedroom, discussed with nurse Miss Sutherland and with global program manager she may be discharged tomorrow morning to Rehab facility. 10/06 Seen in her bedroom improving condition, discussed with nurse Miss Franco and with Lead Fabricator who is waiting for insurance authorization to transfer to [facility]. No Nausea, vomit or diarrhea. 10/07 Patient stable in her bedroom already seen by [facility] Counselor Doctor Tali Vivar recommended with Diagnosis of Left ICA/MCA infarct with aphasia, Right Hemiparesis, Apraxia and Dysphagia, recommended going for Rehabilitation will go to [facility] inpatient. No Nausea, vomit or diarrhea ready for discharge today Objective Vital Signs Date Time Temp Pulse Resp B/P Pulse Ox O2 Delivery O2 Flow Rate FiO2 10/07/16 06:20 100.3 72 18 123/66 96 10/07/16 00:00 99.4 84 18 133/64 96 10/06/16 20:00 100.1 86 18 118/61 92 10/06/16 20:00 77 10/06/16 20:00 Nasal Cannula 2.00 10/06/16 15:00 98.6 71 19 132/62 95 10/06/16 12:04 69 10/06/16 11:55 98.7 75 19 121/60 98 10/06/16 11:30 98.7 75 19 121/60 98 10/06/16 11:12 97 Nasal Cannula 2.00 10/06/16 08:50 Nasal Cannula 2.00 I/O 10/06/16 10/06/16 10/06/16 10/07/16 10/07/16 10/07/16 07:00 15:00 23:00 07:00 15:00 23:00 Intake Total 720 ml Balance 720 ml Intake Oral 720 ml # Voids 2 6 4 # Bowel Movements 0 1 4 Result Diagram: 10/03/16 0459 10/03/16 0459 Imaging Last Impressions Neck Magnetic Resonance Angiography 10/02/16 1218 Signed Impressions: Service Date/Time: September 13:49 - CONCLUSION: Occluded left internal carotid at its origin through the skull base. Ha Mancilla MD FACR Head Magnetic Resonance Angiography 10/02/16 1218 Signed Impressions: Service Date/Time: September 13:49 - CONCLUSION: 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 Minimal flow is seen in the left posterior cerebral artery. Andrew Bui MD Brain MRI 10/02/16 1218 Signed Impressions: Service Date/Time: September 13:49 - CONCLUSION: 1. Acute nonhemorrhagic left MCA territory infarction with signal involving the left ICA and MCA consistent with thrombus. 2. Encephalomalacia in the left occipital lobe. 3. Chronic small vessel ischemic change. 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 Otherwise, negative for an acute process. MRI is pending. Ha Mancilla MD FACR Chest X-Ray 10/02/16 0000 Signed Impressions: Service Date/Time: September 12:46 - CONCLUSION: No acute disease. Andrew Bui MD Procedures No procedures performed. Other Results Laboratory Tests Test 10/02/16 10/03/16 10/03/16 18:15 00:22 04:59 Nasal Screen MRSA (PCR) NEGATIVE Total Creatine Kinase 122 U/L Troponin I LESS THAN 0.02 NG/ML White Blood Count 8.6 TH/MM3 Red Blood Count 4.03 MIL/MM3 Hemoglobin 11.9 GM/DL Hematocrit 36.7 % Mean Corpuscular Volume 91.1 FL Mean Corpuscular Hemoglobin 29.7 PG Mean Corpuscular Hemoglobin 32.6 % Concent Red Cell Distribution Width 12.1 % Platelet Count 137 TH/MM3 Mean Platelet Volume 9.5 FL Neutrophils (%) (Auto) 62.8 % Lymphocytes (%) (Auto) 29.2 % Monocytes (%) (Auto) 6.9 % Eosinophils (%) (Auto) 0.7 % Basophils (%) (Auto) 0.4 % Neutrophils # (Auto) 5.4 TH/MM3 Lymphocytes # (Auto) 2.5 TH/MM3 Monocytes # (Auto) 0.6 TH/MM3 Eosinophils # (Auto) 0.1 TH/MM3 Basophils # (Auto) 0.0 TH/MM3 CBC Comment DIFF FINAL Differential Comment Prothrombin Time 10.8 SEC Prothromb Time International 1.0 RATIO Ratio Sodium Level 142 MEQ/L Potassium Level 3.8 MEQ/L Chloride Level 107 MEQ/L Carbon Dioxide Level 26.4 MEQ/L Anion Gap 9 MEQ/L Blood Urea Nitrogen 13 MG/DL Creatinine 1.01 MG/DL Estimat Glomerular Filtration 53 ML/MIN Rate Random Glucose 103 MG/DL Hemoglobin A1c 6.3 % Calcium Level 8.2 MG/DL Triglycerides Level 166 MG/DL Cholesterol Level 133 MG/DL LDL Cholesterol 64 MG/DL HDL Cholesterol 36.0 MG/DL Cholesterol/HDL Ratio 3.69 RATIO Objective Remarks GENERAL: Obese patient alert and oriented but with Dysarthria. SKIN: Warm and dry. HEAD: Normocephalic. EYES: No scleral icterus. No injection or drainage. Pupils 2 mm equal reactive. NECK: Supple, trachea midline. No JVD or lymphadenopathy. CARDIOVASCULAR: Regular rate and rhythm without murmurs, gallops, or rubs. RESPIRATORY: Breath sounds equal bilaterally. No accessory muscle use. GASTROINTESTINAL: Abdomen soft, non-tender, nondistended. MUSCULOSKELETAL: No cyanosis, or edema. BACK: Nontender without obvious deformity. No CVA tenderness. NEUROLOGY: Patient is awake, alert and looks oriented, dysarthria, improving her Right Hemiparesis slowly. Medications and IVs Current Medications Medications (Trade) Dose Ordered Sig/Lauren Route Start Time Stop Time Status Last Admin (Zoloft) 100 mg DAILY PO 10/03/16 09:00 10/06/16 09:10 (Restoril) 15 mg HS PRN PO 10/02/16 16:30 10/06/16 20:40 (Vitamin B1) 100 mg DAILY PO 10/03/16 09:00 10/06/16 09:10 (Pravachol) 80 mg HS PO 10/02/16 21:00 10/06/16 20:39 (NS Flush) 2 ml UNSCH PRN FLUSH 10/02/16 16:30 (NS Flush) 2 ml BID FLUSH 10/02/16 21:00 10/06/16 20:41 (Tylenol) 650 mg Q4H PRN PO 10/02/16 17:00 10/05/16 20:41 (Zofran Inj) 4 mg Q6H PRN IVP 10/02/16 17:00 (Dulcolax Supp) 10 mg DAILY PRN [place] 10/02/16 17:00 10/06/16 17:05 (Colace) 100 mg Q12H PO 10/02/16 17:00 10/07/16 04:45 (Lovenox Inj) 40 mg Q24H SQ 10/02/16 17:00 10/06/16 17:05 Naloxone HCl 0.4 mg 0.4 mg UNSCH PRN IV 10/02/16 16:30 (Keppra Inj/NS Inj) 105 ml @ 420 mls/hr Q12HR IV 10/02/16 21:00 10/06/16 20:37 (Aspirin) 325 mg DAILY PO 10/05/16 09:00 10/06/16 09:18 (D50w (Vial) Inj) 25 ml UNSCH PRN IV PUSH 10/04/16 11:00 (Glucagon Inj) 1 mg UNSCH PRN OTHER 10/04/16 11:00 A/P Problem List: (1) Acute CVA (cerebrovascular accident) ICD Code: I63.9 (2) Seizure cerebral ICD Code: I67.89 (3) HTN (hypertension) ICD Code: I10 (4) Acute left arterial ischemic stroke, ICA (internal carotid artery) ICD Code: I63.232 (5) Left carotid artery occlusion ICD Code: I65.22 Assessment and Plan 1. Acute Left Arterial Ischemic Stroke, ICA Internal Carotid Artery Occlusion, Moderate to large occlusion questioned by Neurology specialist possible Acute thrombosis of Stenotic. not considered for tPA in ER Echocardiogram EF 55-60%. PT Short term rehab. now able to eat on Heart Healthy diet and ADA diet. continue working with Physical Therapy and improving her Right hemiparesis. 2. Left Carotid Artery Occlusion not amenable for procedure to the diffuse compromise. 3. 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 EEG Mild to moderate Encephalopathy with mild asymmetric Left Hemispheric Slowing. 4. Hypertension controlled 5. Hyperlipidemia to continue Statins 6. CVA last year 7. DM II continue sliding scale re started diet well controlled on Sliding scale. controlled. Hemoglobin A1C 8.2 8. Obesity strongly recommended diet and exercise as outpatient, 9. Severe Tobacco dependence strongly recommended to stop smoking. DVT prophylaxis with Lovenox Discussed with patient, Lead Fabricator and ready for transfer to [facility] Discussed with her Daughter Miss Nyla Estrada to the phone number [phone] all questions answered to the best of my abilities, and recommended to our Time Study Engineer and nurse on the sixth floor to call her once the transfer is initiated. Code Status Full Code. Discharge Planning Transfer to [facility] today Problem Qualifiers (1) HTN (hypertension): Qualified Code: I10 - Essential hypertension Gabriel Salazar MD Oct 07, 2016 08:03
[2016-10-07 08:30] VITALS: PULSE 68
[2016-10-07] MEDS: SERTRALINE HCL 100 MG TAB PO SCH (08:39)
[2016-10-07] MEDS: SODIUM CHLORIDE 0.9% FLUSH 5 ML FLUSH FLUSH SCH (08:39)
[2016-10-07] MEDS: ASPIRIN 325 MG TAB PO SCH (08:39)
[2016-10-07] MEDS: THIAMINE HCL 100 MG TAB PO SCH (08:39)
[2016-10-07] MEDS: levETIRAcetam INJ 500 MG in SODIUM CHLORIDE 0.9% INJ 100 ML IV SCH (08:39)
[2016-10-07] MEDS ORDERED: ASPI325T PO (09:32)
[2016-10-07] MEDS ORDERED: VITA100T2 PO (09:32)
[2016-10-07] MEDS ORDERED: PRAV80TA PO (09:32)
--- NOTE | 2016-10-07 09:34 | HHI.DS ---
Discharge Summary Admission Date Oct 02, 2016 at 16:13 Discharge Date: Oct 07, 2016 Admitting Diagnosis acute CVA (1) Seizure cerebral ICD Code: I67.89 Diagnosis: Secondary (2) HTN (hypertension) ICD Code: I10 Diagnosis: Secondary (3) Left carotid artery occlusion ICD Code: I65.22 Diagnosis: Principal (4) Acute CVA (cerebrovascular accident) ICD Code: I63.9 Diagnosis: Principal (5) Acute left arterial ischemic stroke, ICA (internal carotid artery) ICD Code: I63.232 Diagnosis: Principal Procedures No procedures performed. Brief History - From Admission This is a pleasant 76 y/o Female who was brought in by EMS for right sided weakness and aphasia, the last time seen Normal was yesterday night, she was found by a friend this morning unable to Speak and with right sided weakness she has history of CVA last year ans was seen by her PCP, she has some mild residual weakness since then, the patient was unable to provide information, she has Hypertension, DM II, Hyperlipidemia, Status post Hysterectomy Discussed with patient, who has Dysarthria, he Daughter Mrs. Nyla Almanza and her relative Mr. Cr Sheikh in the room, the patient is heavy smoker one pack of cigarettes daily. unable to move her right side, will need early Physical Therapy and Occupational Therapy, Speech therapy working with her but did not pass the swallow test will need IV fluids. CBC/BMP: 10/03/16 0459 10/03/169 Imaging Last Impressions Neck Magnetic Resonance Angiography 10/02/161217 Signed Impressions: Service Date/Time: September 13:49 - CONCLUSION: Occluded left internal carotid at its origin through the skull base. Ha Mancilla MD FACR Head Magnetic Resonance Angiography 10/02/161217 Signed Impressions: Service Date/Time: September 13:49 - CONCLUSION: 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 Minimal flow is seen in the left posterior cerebral artery. Andrew Bui MD Brain MRI 10/02/161217 Signed Impressions: Service Date/Time: September 13:49 - CONCLUSION: 1. Acute nonhemorrhagic left MCA territory infarction with signal involving the left ICA and MCA consistent with thrombus. 2. Encephalomalacia in the left occipital lobe. 3. Chronic small vessel ischemic change. 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 Otherwise, negative for an acute process. MRI is pending. Ha Mancilla MD FACR Chest X-Ray 10/02/16 0000 Signed Impressions: Service Date/Time: September 12:46 - CONCLUSION: No acute disease. Andrew Bui MD PE at Discharge GENERAL: Obese patient alert and oriented but with Dysarthria. SKIN: Warm and dry. HEAD: Normocephalic. EYES: No scleral icterus. No injection or drainage. Pupils 2 mm equal reactive. NECK: Supple, trachea midline. No JVD or lymphadenopathy. CARDIOVASCULAR: Regular rate and rhythm without murmurs, gallops, or rubs. RESPIRATORY: Breath sounds equal bilaterally. No accessory muscle use. GASTROINTESTINAL: Abdomen soft, non-tender, nondistended. MUSCULOSKELETAL: No cyanosis, or edema. BACK: Nontender without obvious deformity. No CVA tenderness. NEUROLOGY: Patient is awake, alert and looks oriented, dysarthria, improving her Right Hemiparesis slowly. Hospital Course This is a pleasant 76 y/o Female who was brought in by EMS for right sided weakness and aphasia, the last time seen Normal was the night before coming to ER, she was found by a friend this morning unable to Speak and with right sided weakness she has history of CVA last year ans was seen by her PCP, she has some mild residual weakness since then, she has Hypertension, DM II, Hyperlipidemia, Status post Hysterectomy has Dysarthria, the patient is heavy smoker one pack of cigarettes daily. unable to move her right side, will need early Physical Therapy and Occupational Therapy, Speech therapy. 10/03 Patient seen in the room in the presence of nurse Miss Ross and her Daughter Miss Edna Almanza all questions answered, she will need Inpatient Rehabilitation, stable followed by Neurology specialist. Left Carotid artery Occlusion non amenable for procedure to to the magnitude of the Occlusion. Echocardiogram EF 55 to 60%. 10/04 Patient stable in her bedroom improving slowly will need rehab at discharge , discussed with nurse Miss Alicja green, no new issues, awaiting final by Neurology specialist for discharge. 10/05 Stable in her bedroom, discussed with nurse Miss Sutherland and with territory account manager she may be discharged tomorrow morning to Rehab facility. 10/06 Seen in her bedroom improving condition, discussed with nurse Miss Franco and with Marker Machine who is waiting for insurance authorization to transfer to [facility]. No Nausea, vomit or diarrhea. 10/07 Patient stable in her bedroom already seen by Cyber Ops Planner Doctor Tali Vivar recommended with Diagnosis of Left ICA/MCA infarct with aphasia, Right Hemiparesis, Apraxia and Dysphagia, recommended going for Rehabilitation will go to [facility]. No Nausea, vomit or diarrhea ready for discharge today Assessment and Plan 1. Acute Left Arterial Ischemic Stroke, ICA Internal Carotid Artery Occlusion, Moderate to large occlusion questioned by Neurology specialist possible Acute thrombosis of Stenotic. not considered for tPA in ER Echocardiogram EF 55-60%. PT Short term rehab. now able to eat on Heart Healthy diet and ADA diet. continue working with Physical Therapy and improving her Right hemiparesis. 2. Left Carotid Artery Occlusion not amenable for procedure to the diffuse compromise. 3. 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 EEG Mild to moderate Encephalopathy with mild asymmetric Left Hemispheric Slowing. 4. Hypertension controlled 5. Hyperlipidemia to continue Statins 6. CVA last year 7. DM II continue sliding scale re started diet well controlled on Sliding scale. controlled. Hemoglobin A1C 8.2 8. Obesity strongly recommended diet and exercise as outpatient, 9. Severe Tobacco dependence strongly recommended to stop smoking. DVT prophylaxis with Lovenox Discussed with patient, Marker Machine and ready for transfer to [facility] Discussed with her Daughter Miss Nyla Estrada to the phone number [phone] all questions answered to the best of my abilities, and recommended to our Computer Operations Manager and nurse on the sixth floor to call her once the transfer is initiated. Code Status Full Code. Discharge Planning Transfer to [facility] today Pt Condition on Discharge: Stable Discharge Disposition: Rehab Inpatient Discharge Time: > 30 minutes Discharge Instructions DIET: Follow Instructions for: Heart Healthy Diet, Diabetic Diet Activities you can perform: Regular-No Restrictions Other Activity Instructions: Follow Physical Therapy recommendations, OT and Speech therapy Gabriel Salazar MD Oct 07, 2016 09:34
[2016-10-07] MEDS ORDERED: LEVE100S PO (10:10)
[2016-10-27] MEDS ORDERED: ASPI325T PO (09:21)
[2016-10-27] MEDS ORDERED: TEMA7.5C9 PO (09:21)
[2016-10-27] MEDS ORDERED: ACET325T PO (09:21)
[2016-10-27] MEDS ORDERED: SERT-129 PO (09:21)
[2016-10-27] MEDS ORDERED: PRAV80TA PO (09:21)
[2016-10-27] MEDS ORDERED: LEVE500 PO (09:21)
[2016-10-27] MEDS ORDERED: FLEE5TAB PO (09:21)
[2016-10-27] MEDS ORDERED: VITA100T2 PO (09:21)
[2016-10-27] MEDS ORDERED: DOCU1CAP39 PO (09:21)
== END 2016-10-07 11:40 | DRG 64 ==
LOC: NEPA 11:59 → INTOOBSV 16:13 → NEDA 16:13 → OBSVTOIN 16:13 → N03A 17:55 → N05B 10-04 10:17
PROVIDERS: ADMIT Internal Medicine; ATTEND Internal Medicine
DX: I63.512 Cerebral infarction due to unspecified occlusion or stenosis of left middle cerebral artery (principal); I63.032 Cerebral infarction due to thrombosis of left carotid artery; G93.40 Encephalopathy, unspecified; G93.89 Other specified disorders of brain; I69.351 Hemiplegia and hemiparesis following cerebral infarction affecting right dominant side; E11.9 Type 2 diabetes mellitus without complications; I67.89 Other cerebrovascular disease; R47.01 Aphasia; R47.1 Dysarthria and anarthria; E78.5 Hyperlipidemia, unspecified; I10 Essential (primary) hypertension; E78.00 Pure hypercholesterolemia, unspecified; Z79.84 Long term (current) use of oral hypoglycemic drugs; Z90.710 Acquired absence of both cervix and uterus; F17.210 Nicotine dependence, cigarettes, uncomplicated; E66.9 Obesity, unspecified; Z82.49 Family history of ischemic heart disease and other diseases of the circulatory system; G40.909 Epilepsy, unspecified, not intractable, without status epilepticus; R13.10 Dysphagia, unspecified
CPT/HCPCS: 70450; 70544; 70548; 70551; 71010; 80048; 80061; 81001; 82435; 82550; 82565; 82947; 82948; 83036; 84132; 84295; 84484; 84520; 85025; 85384; 85610; 85730; 86850; 86900; 86901; 87641; 93005; 93306; 95819; 96360; 96361; A9579; G8996-GN; G8997-GN; G8998-GN; J1650; J1953; J7030; P9612

== ENCOUNTER 2016-11-29 03:34 | Emergency (ER) | payer OTHER, MEDICAID ==
[~2016-11-29] VITALS: Ht 172.7 cm; Wt 84.0 kg
[~2016-11-29 03:34] MED LIST changes: +ACET325T PO; +ASPI325T PO; -ASPI81; -ATEN1TAB73; -ATOR10; +DOCU1CAP39 PO; -ENAL20TA81; +FLEE5TAB PO; +LEVE500 PO; -MVI; +PRAV80TA PO; -ROSI1TAB24; +SERT-129 PO; +TEMA7.5C9 PO; +VITA100T2 PO
[2016-11-29 03:39] VITALS: BP 108/55; PULSE 80; RESP 16; RESP 6; TEMP 98.3; O2SAT 96
[2016-11-29] MEDS ORDERED: TETANUS/DIPHTHERIA TOXOID ADULT 0.5 ML VIAL IM ONE (03:45)
--- NOTE | 2016-11-29 03:50 | PD ---
HPI Chief Complaint: Fall Time Seen by Provider: 03:40 Travel History International Travel<30 days: No Contact w/Intl Traveler<30days: No Traveled to known affect area: No History of Present Illness HPI 76-year-old female with a history of CVA who is nonverbal, who presents with a right sided scalp laceration after falling when getting up out of bed. The patient knows she should not be getting out of bed at night and less assisted however she did this without telling her daughter. While she is nonverbal, she is able to shake her head yes or no to questions asked. She denies any head or neck pain although does have a laceration to the right upper scalp. No other injuries are identified. She shakes her head no to having a tetanus within the last 5 years. PFSH Past Medical History Arthritis: No Asthma: No Autoimmune Disease: No Anxiety: No Depression: No Heart Rhythm Problems: No Cancer: No Cardiovascular Problems: Yes High Cholesterol: Yes Chemotherapy: No Chest Pain: No Congestive Heart Failure: No COPD: No Cerebrovascular Accident: Yes (LAST YEAR) Diabetes: Yes Patient Takes Glucophage: Yes Diminished Hearing: No Endocrine: No Gastrointestinal Disorders: Yes GERD: No Genitourinary: No Headaches: Yes (every so often) Hiatal Hernia: No Hypertension: Yes Immune Disorder: No Kidney Stones: No Musculoskeletal: No Neurologic: Yes Psychiatric: No Reproductive: No Respiratory: Yes (smoker-care home) Migraines: No Radiation Therapy: No Renal Failure: No Seizures: No Sickle Cell Disease: No Sleep Apnea: No Thyroid Disease: No Ulcer: No ?: Not Menopausal: Yes Past Surgical History Abdominal Surgery: No AICD: No Arteriovenous Shunt: No Cardiac Surgery: No Ear Surgery: No Endocrine Surgery: No Eye Surgery: No Genitourinary Surgery: No Gynecologic Surgery: Yes (Hysterectomy) Hysterectomy: Yes Insulin Pump: No Joint Replacement: No Oral Surgery: Yes (Teeth pulled) Pacemaker: No Thoracic Surgery: No Social History Alcohol Use: No Tobacco Use: No (QUIT 1 yr ago) Substance Use: No Allergies-Medications (Allergen,Severity, Reaction): Coded Allergies: No Known Allergies (Verified , 10/02/16) Reported Meds & Prescriptions Reported Meds & Active Scripts Active Keppra (Levetiracetam) 500 Mg Tab 500 Mg PO BID 30 Days continue until stopped by Neurologist Vitamin B-1 (Thiamine HCl) 100 Mg Tab 100 Mg PO DAILY Pravachol (Pravastatin) 80 Mg Tab 80 Mg PO HS Aspirin 325 Mg Tab 325 Mg PO DAILY Sertraline (Sertraline HCl) 100 Mg Tab 100 Mg PO DAILY Reported Progesterone Micronized 100 Mg Cap 100 Mg PO HS Ibuprofen 200 Mg Cap 200 Mg PO Q4H PRN Lisinopril 5 Mg Tab 5 Mg PO DAILY Metformin (Metformin HCl) 500 Mg Tab 500 Mg PO BIDPC With meals Review of Systems ROS Limitations: Other: (patient is nonverbal secondary to an old stroke) Except as stated in HPI: all other systems reviewed are Neg HENT: No: Headaches (although lacerations the right upper scalp), Lightheadedness, Neck Pain Cardiovascular: No: Chest Pain or Discomfort, Palpitations Respiratory: No: Shortness of Breath Gastrointestinal: No: Nausea, Vomiting, Abdominal Pain Musculoskeletal: No: Weakness, Pain Neurologic: No: Weakness (new), Headache Physical Exam Narrative GENERAL: Well-nourished, well-developed patient. SKIN: Focused skin assessment warm/dry. HEAD: Normocephalic. She has a 2 cm lack to the top right vertex of the scalp. There is no bony deformity. No step-offs. EYES: No scleral icterus. No injection or drainage. NECK: Supple, trachea midline. CARDIOVASCULAR: Regular rate and rhythm without murmurs, gallops, or rubs. RESPIRATORY: Breath sounds equal bilaterally. No accessory muscle use. GASTROINTESTINAL: Abdomen soft, non-tender, nondistended. MUSCULOSKELETAL: No cyanosis, or edema. No bruising or deformities. Awake and shakes her head yes and no. Cranial nerves appear intact. Data Data Last Documented VS Vital Signs Date Time Temp Pulse Resp B/P Pulse Ox O2 Delivery O2 Flow Rate FiO2 11/29/16 03:39 98.3 80 16 108/[address] Brain W/O Iv Contrast(Rout) (11/29/16 03:40) Tetanus/Diphtheria Tox Adult (Tetanus/Di (11/29/16 03:45) MDM Medical Decision Making Medical Screen Exam Complete: Yes Emergency Medical Condition: Yes Differential Diagnosis Scalp laceration versus intracranial hemorrhage versus skull fracture Narrative Course 76-year-old female with history of previous stroke, who fell when getting out of bed. Patient has a scalp laceration that was repaired. The patient's CT scan shows no evidence of acute intracranial hemorrhage or bleeding. She was immunized with tetanus. She'll be discharged with her daughter. She is instructed to keep her scalp cristo clean and dry. She is also instructed to return in 7-10 days for staple removal. Diagnosis Primary Impression: right parietal scalp laceration Additional Impression: Closed head injury Additional Instructions: Keep scalp wound clean and dry. Return in 7-10 days for staple removal. If there is evidence of infection, return for evaluation. Disposition: 01 DISCHARGE HOME Condition: Stable Terrance Jc MD November 29, 2016 03:50
[2016-11-29] MEDS ORDERED: PROG100C PO (03:51)
[2016-11-29] MEDS ORDERED: IBUP200C PO (03:51)
[2016-11-29] MEDS ORDERED: METF500T PO (03:51)
[2016-11-29] MEDS ORDERED: LISI-519 PO (03:51)
--- NOTE | 2016-11-29 04:04 | RADRPT ---
EXAM DATE/TIME: 11/29/2016 03:48 [facility] COMPARISON: CT BRAIN W/O CONTRAST, October 02, 2016, 12:13. INDICATIONS : Trauma. Fell hitting right side of head. RADIATION DOSE: 56.35 CTDIvol (mGy) MEDICAL HISTORY : Cardiovascular disease. Cardiovascular disease Hypertension.Diabetes SURGICAL HISTORY : Hysterectomy. ENCOUNTER: Initial ACUITY: 1 day PAIN SCALE: 5/10 LOCATION: Right cranial TECHNIQUE: Multiple contiguous axial images were obtained of the head. Using automated exposure control and adj ustment of the mA and/or kV according to patient size, radiation dose was kept as low as reasonably a chievable to obtain optimal diagnostic quality images. FINDINGS: CEREBRUM: The ventricles are normal for age. No evidence of midline shift, mass lesion, hemorrhage or acute in farction. No extra-axial fluid collections are seen. There is an old infarct involving the left occi pital lobe. There is an old infarct involving the left temporal and left mid parietal lobe. There is an old infarct involving the left basal ganglia and thalamus. POSTERIOR FOSSA: The cerebellum and brainstem are intact. The 4th ventricle is midline. The cerebellopontine angle i s unremarkable. EXTRACRANIAL: The visualized portion of the orbits is intact. SKULL: The calvaria is intact. No evidence of skull fracture. CONCLUSION: 1. No focal or acute intracranial hemorrhage. 2. Old infarcts involving the left occipital lobe, left temporal lobe, left mid parietal lobe, left b lanie ganglia and thalamic regions. Nico Oconnor MD on November 29, 2016 at 4:00 Board Certified Radiologist. This report was verified electronically.
--- NOTE | 2016-11-29 04:11 | PD ---
Physical Exam Time Seen by Provider: 04:10 Data Data Last Documented VS Vital Signs Date Time Temp Pulse Resp B/P Pulse Ox O2 Delivery O2 Flow Rate FiO2 11/29/16 03:39 98.3 80 16 108/[address] Brain W/O Iv Contrast(Rout) (11/29/16 03:40) Tetanus/Diphtheria Tox Adult (Tetanus/Di (11/29/16 03:45) MDM Medical Record Reviewed: Yes Supervised Visit with AUGUSTINE: No Procedures Procedure Narrative LACERATION LOCATION: Right parietal scalp LENGTH: 2 cm NUMBER OF STITCHES/CRISTO: 2 cristo REPAIR: The area of the laceration was prepped with Betadine and sterilely draped. The wound was copiously irrigated and explored without evidence of foreign body, tendon injury or neurovascular injury. The wound was closed using cristo. This was a single layer repair. The patient was advised to keep the area clean and dry. Patient tolerated the procedure well. Condition: Stable Yeimi Lisa November 29, 2016 04:10
== END 2016-11-29 05:20 | disposition home or self-care (01) ==
LOC: NEPE 03:34
DX: S01.01XA Laceration without foreign body of scalp, initial encounter (principal); S09.90XA Unspecified injury of head, initial encounter; E11.9 Type 2 diabetes mellitus without complications; I10 Essential (primary) hypertension; W06.XXXA Fall from bed, initial encounter; Y93.9 Activity, unspecified; Y92.003 Bedroom of unspecified non-institutional (private) residence as the place of occurrence of the external cause; Z23 Encounter for immunization
CPT/HCPCS: 12001; 70450; 90471; 90714

== ENCOUNTER 2018-01-25 19:14 | Inpatient (IN) ==
--- NOTE | 2018-01-25 19:55 | ED ---
HPI General Chief complaint: Weakness Stated complaint: Gen weakness/Wvac Time Seen by Provider: 01/25/18 19:48 History of Present Illness HPI narrative: The patient is a 77 year old female who presents to the [facility] emergency department with a history of increasing joint pain recently related to wrists, elbows, knees, and increased pain along her right hamstring. The patient has a history of prior stroke in September 2016 involving the left MCA distribution. The patient developed resultant aphasia and right-sided upper and lower extremity weakness. The patient currently resides at home. The patient intermittently uses a walker for assistance with gait stability. The patient is on a low-dose aspirin daily. The patient's primary care physician is through [facility]. She denies having any loss of consciousness. She denies having any pain associated with the fall. The patient reportedly got unsteady on her feet when going to the bathroom. On review of systems otherwise, the patient's family denies her having any known recent fevers, cough, congestion, chest pain, shortness of breath, abdominal pain, vomiting, diarrhea, urinary symptoms, or new neurologic symptoms. Related Data Allergies Allergy/AdvReac Type Severity Reaction Status Date / Time No Known Allergies Allergy Unverified 01/25/18 19:26 Review of Systems Constitutional Denies fever(s) Eyes Denies change in vision ENT Denies headache(s) and Denies nasal congestion Cardiovascular Denies chest pain Respiratory Denies dyspnea Gastrointestinal Denies abdominal pain Genitourinary Denies difficulty voiding Musculoskeletal Reports myalgias and Reports other (arthralgias) Integumentary/Breasts Denies rash Neurologic Denies headache(s) Psychiatric Denies depression Endocrine Denies polyuria Hematologic/Lymphatic Denies easy bruising [facility] Medical History Medical History High cholesterol (Acute) History of hysterectomy (Acute) Hypertension (Acute) Stroke (Acute) Social History Social History Substance History: No History of Abuse Second Hand Smoke Exposure: Yes Smoking Status: Former smoker How Often Do You Have a Drink Containing Alcohol: Never Recent Travel in [facility] within the Last 8 Weeks: No Recent Out of Country Travel within the Last 8 Weeks: No Immunization History Tetanus Immunization: <5 Years Hx Influenza Vaccine This Season: Yes Exam HENVA Head: normocephalic and other (With evidence of trauma to the right side of the forehead with an overlying contusion with abrasion. No step-off or crepitus.) Nose: no nasal discharge and no epistaxis Mouth: moist mucous membranes Eyes Sclera: normal sclerae Pupils: PERRL Neck Neck: trachea midline and no JVD Resp Effort & Inspection: no use of accessory muscles Auscultation: clear to auscultation bilaterally Cardio Rate: tachycardic (Sinus tachycardia in the low 100s with no pulse deficit to the extremities on simultaneous auscultation and palpation of her radial artery) Rhythm: regular rhythm Heart Sounds: no gallops, no murmurs and no rubs GI Inspection: non-distended Palpation: soft, no hepatosplenomegaly and nontender Skin General: dry skin (warm) Trauma: abrasion Neuro General: alert and awake Cranial Nerves: other Speech: abnormal speech and expressive aphasia Motor: strength abnormal (Strength is 4/5 and the right upper and right lower extremity related to her prior stroke.) Extrem General: normal to inspection, no clubbing, no cyanosis and no edema Right upper extremity: full ROM Left upper extremity: full ROM Right lower extremity: hip/thigh (The patient reports tenderness on palpation along the posterior aspect of the right hamstring without any visible deformity , erythema, ecchymosis, or edema.) Left lower extremity: full ROM Psych Mood: congruent mood Affect: normal affect Judgment: judgment good Course Hospital Course: During the course of the patient's emergency department visit, the patient's history, examination, and differential diagnosis were reviewed with the patient. The patient was placed on a cardiac/vascular sonographer with oximetry and frequent blood pressure monitoring. The patient had IV access obtained and blood work sent for analysis. CT scan of the head and neck was ordered. An ultrasound of the right lower extremity has been ordered to rule out DVT. The patient was initially provided an update to her tetanus. Reevaluation(s) Reevaluation #1: The patient's diagnostic testing results were discussed with her. She was agreeable with the plan to proceed with admission for continued evaluation and treatment of rhabdomyolysis. Time: 22:02 Consultations Consultation #1: The patient's case including history, pertinent physical examination findings, and laboratory studies were discussed with dr. Boland. It was agreed that the patient would be admitted to the hospitalist service. Initial Documented Vital Signs Temperature 98 F 01/25/18 19:27 Pulse Rate 104 H 01/25/18 19:27 Respiratory Rate 16 01/25/18 19:27 Blood Pressure 114/80 01/25/18 19:27 Pulse Oximetry 97 01/25/18 19:27 Last Documented Vital Signs Temperature 98 F 01/25/18 19:27 Pulse Rate 104 H 01/25/18 19:27 Respiratory Rate 16 01/25/18 19:27 Blood Pressure 114/80 01/25/18 19:27 Pulse Oximetry 97 01/25/18 19:27 Medical Decision Making MDM Narrative Medical decision making narrative: A workup was initiated regarding this patient 's head injury from a fall. The patient's diagnostic testing is remarkable for a white count of 13.2 with neutrophil predominance of 77.8, platelets 187, hemoglobin is, PT 10.2, INR 1.0 , PTT 23.3, 12.6, chemistries remarkable for a CPK of 1000 13,637, troponin I is 0.07, calcium 10.2, AST is elevated at 305, albumin 3.0, ALT 163, glucose 134. Troponin I 0.04. I suspect that the elevated CPK is related to rhabdomyolysis. The patient was continued on normal saline IV fluids. Urinalysis shows few white blood cell clumps, WBCs 74, urobilinogen 2, protein 100, large occult blood, nitrite positive, few mucus, small leukocyte esterase, culture indicated. The patient was started on Rocephin 1 g IV. Chest x-ray showed no acute abnormality, CT scan of the brain showed large areas of encephalomalacia, no acute abnormality, CT scan of the C-spine showed no acute abnormality. An ultrasound of her leg showed no evidence of DVT. Given the patient's rhabdomyolysis, the patient will be admitted to the hospital for continued evaluation and treatment. The patient's results were discussed with the patient, including the plan of care. I explained that further testing and/ or monitoring is indicated based on the patient's history, examination, and/ or laboratory findings. Therefore, I recommended admission for additional evaluation. The patient expressed understanding and was agreeable with this plan. The patient was admitted to the hospital in stable condition and sent to a bed under the care of [facility] service. Differential Diagnosis Differential Diagnosis: Intracranial trauma, versus cervical spine trauma, versus urinary tract infection, versus electrolyte derangements, versus dehydration Medical Records Medical records reviewed: Yes I reviewed the patient's medical records. Lab Data Lab results reviewed: Yes I reviewed the patient's lab results. Result diagrams: 01/25/18 20:34 01/25/18 20:34 Lab Results 01/25/18 01/25/18 01/25/18 Range/Units 20:34 20:34 20:34 WBC 13.2 H (4.0-11.0) th/mm3 RBC 4.31 (4.00-5.30) mil/mm3 Hgb 12.6 (11.6-15.3) gm/dL Hct 38.1 (35.0-46.0) % MCV 88.3 (80.0-100.0) fL MCH 29.3 (27.0-34.0) pg MCHC 33.1 (32.0-36.0) % RDW 13.3 (11.6-17.2) % Plt Count 187 (150-450) th/mm3 MPV 10.2 (7.0-11.0) fL Neut % (Auto) 77.8 H (16.0-70.0) % Lymph % (Auto) 14.7 (9.0-44.0) % [place] % (Auto) 6.5 (0.0-8.0) % Eos % (Auto) 0.7 (0.0-4.0) % Baso % (Auto) 0.3 (0.0-2.0) % Neut # (Auto) 10.3 H (1.8-7.7) th/mm3 Lymph # (Auto) 1.9 (1.0-4.8) th/mm3 [place] # (Auto) 0.9 (0.0-0.9) th/mm3 Eos # (Auto) 0.1 (0.0-0.4) th/mm3 Baso # (Auto) 0.0 (0.0-0.2) th/mm3 WBC Differential . Differential Comment Auto diff final PT 10.2 (9.8-11.6) sec INR 1.0 Ratio APTT 23.3 L (24.3-30.1) sec Sodium 142 (136-145) meq/L Potassium 3.9 (3.5-5.1) meq/L Chloride 107 (98-107) meq/L Carbon Dioxide 21.7 (21.0-32.0) meq/L Anion Gap 13 (5-15) meq/L BUN 15 (7-18) mg/dL Creatinine 1.67 H (0.50-1.00) mg/dL Estimated GFR 30 L (>89) mL/min Random Glucose 134 H (74-106) mg/dL Calcium 10.2 H (8.5-10.1) mg/dL Magnesium 2.2 (1.5-2.5) mg/dL Total Bilirubin 0.6 (0.2-1.0) mg/dL AST 305 H (15-37) U/L ALT 163 H (10-53) U/L Alkaline Phosphatase 68 (45-117) U/L Total Creatine Kinase 40258 H (26-192) U/L CK-MB (CK-2) 48.4 H (0.5-3.6) ng/mL CK-MB (CK-2) % 0.4 (0.0-4.0) % Troponin I 0.04 (0.02-0.05) ng/mL B-Natriuretic Peptide (0-100) pg/mL Total Protein 7.0 (6.4-8.2) g/dL Albumin 3.0 L (3.4-5.0) g/dL TSH 1.730 (0.358-3.740) uIU/mL Urine Color (Yellw/Straw) Urine Clarity (Clear) Urine pH (5.0-8.5) Ur Specific [place] (1.002-1.035) Urine Protein (Neg-Trace) mg/dL Urine Glucose (UA) (Negative) mg/dL Urine Ketones (Negative) mg/dL Urine Occult Blood (Negative) Urine Nitrate (Negative) Urine Bilirubin (Negative) Urine Urobilinogen (Less than 2) mg/dL Ur Leukocyte Esterase (Negative) Urine RBC (0-3) /hpf Urine WBC (0-5) /hpf Urine WBC Clumps (None) Ur Squamous Epith Cells (0-5) /hpf Amorphous Sediment (None) /hpf Urine Bacteria (None) /hpf Urine Mucus (Occasional) /lpf Micro UA Comment Urine Culture Comments 07/09/18 07/09/18 Range/Units 20:34 21:38 WBC (4.0-11.0) th/mm3 RBC (4.00-5.30) mil/mm3 Hgb (11.6-15.3) gm/dL Hct (35.0-46.0) % MCV (80.0-100.0) fL MCH (27.0-34.0) pg MCHC (32.0-36.0) % RDW (11.6-17.2) % Plt Count (150-450) th/mm3 MPV (7.0-11.0) fL Neut % (Auto) (16.0-70.0) % Lymph % (Auto) (9.0-44.0) % [place] % (Auto) (0.0-8.0) % Eos % (Auto) (0.0-4.0) % Baso % (Auto) (0.0-2.0) % Neut # (Auto) (1.8-7.7) th/mm3 Lymph # (Auto) (1.0-4.8) th/mm3 [place] # (Auto) (0.0-0.9) th/mm3 Eos # (Auto) (0.0-0.4) th/mm3 Baso # (Auto) (0.0-0.2) th/mm3 WBC Differential Differential Comment PT (9.8-11.6) sec INR Ratio APTT (24.3-30.1) sec Sodium (136-145) meq/L Potassium (3.5-5.1) meq/L Chloride (98-107) meq/L Carbon Dioxide (21.0-32.0) meq/L Anion Gap (5-15) meq/L BUN (7-18) mg/dL Creatinine (0.50-1.00) mg/dL Estimated GFR (>89) mL/min Random Glucose (74-106) mg/dL Calcium (8.5-10.1) mg/dL Magnesium (1.5-2.5) mg/dL Total Bilirubin (0.2-1.0) mg/dL AST (15-37) U/L ALT (10-53) U/L Alkaline Phosphatase (45-117) U/L Total Creatine Kinase (26-192) U/L CK-MB (CK-2) (0.5-3.6) ng/mL CK-MB (CK-2) % (0.0-4.0) % Troponin I (0.02-0.05) ng/mL B-Natriuretic Peptide 5 (0-100) pg/mL Total Protein (6.4-8.2) g/dL Albumin (3.4-5.0) g/dL TSH (0.358-3.740) uIU/mL Urine Color Red (Yellw/Straw) Urine Clarity Cloudy H (Clear) Urine pH 6.0 (5.0-8.5) Ur Specific [place] 1.012 (1.002-1.035) Urine Protein 100 H (Neg-Trace) mg/dL Urine Glucose (UA) Negative (Negative) mg/dL Urine Ketones Negative (Negative) mg/dL Urine Occult Blood Large H (Negative) Urine Nitrate Positive H (Negative) Urine Bilirubin Negative (Negative) Urine Urobilinogen 2.0 H (Less than 2) mg/dL Ur Leukocyte Esterase Small H (Negative) Urine RBC 3 (0-3) /hpf Urine WBC 74 H (0-5) /hpf Urine WBC Clumps Few H (None) Ur Squamous Epith Cells 2 (0-5) /hpf Amorphous Sediment Rare H (None) /hpf Urine Bacteria Many H (None) /hpf Urine Mucus Few H (Occasional) /lpf Micro UA Comment Culture indicated Urine Culture Comments Culture indicated Imaging Data Radiologist's impression: ITS Impressions Chest X-Ray 01/25/18 20:11 CONCLUSION: No acute cardiopulmonary process. Head CT 01/25/18 20:11 CONCLUSION: 1. No acute abnormality is seen. 2. Large areas of encephalization involving the left temporal, occipital, and parietal lobe. There is also areas of encephalization involving the left basal ganglia and anterior left thalamus from prior infarction. Cervical Spine CT 01/25/18 20:12 CONCLUSION: 1. No acute bony abnormalities seen. 2. Degenerative change. Venous Doppler Study 01/25/18 20:42 CONCLUSION: No DVT. ECG Data Attestation: I personally reviewed and interpreted this ECG as follows: Interpretation: The patient had a EKG done on arrival that shows a sinus tachycardia rate of 102, QRS duration is 90 ms, QTC [address] segment elevation. Discharge Plan Discharge Disposition Patient Disposition: 30 Still Patient Discharge Details Discharge Problem: Rhabdomyolysis, Urinary tract infection Physicians Team ED Provider: Daria Almanza Primary Care Provider: UNKNOWN, Attending Provider: Monika Boland Status ED Status: Admitted Patient
[2018-01-25] MEDS ORDERED: Sodium Chlor 0.9% Inj 500 ML IV.SIG ONE (20:13)
[2018-01-25] MEDS ORDERED: Diphtheria/Tetanus/Pertussis Vaccine Inj 0.5 ML Syringe IM ONE (20:42)
[2018-01-25 21:06] LABS: Baso % (Auto) 0.3 % (0.0-2.0); Eos # (Auto) 0.1 th/mm3 (0.0-0.4); Eos % (Auto) 0.7 % (0.0-4.0); Hematocrit 38.1 % (35.0-46.0); Hemoglobin 12.6 gm/dL (11.6-15.3); Lymph # (Auto) 1.9 th/mm3 (1.0-4.8); Lymph % (Auto) 14.7 % (9.0-44.0); Mean Corpuscular HGB Conc 33.1 % (32.0-36.0); Mean Corpuscular Hemoglobin 29.3 pg (27.0-34.0); Mean Corpuscular Volume 88.3 fL (80.0-100.0); Mean Platelet Volume 10.2 fL (7.0-11.0); Mono # (Auto) 0.9 th/mm3 (0.0-0.9); Mono % (Auto) 6.5 % (0.0-8.0); Neut # (Auto) 10.3 th/mm3 (1.8-7.7); Neut % (Auto) 77.8 % (16.0-70.0); Platelet Count 187 th/mm3 (150-450); Red Blood Count 4.31 mil/mm3 (4.00-5.30); Red Cell Distribution Width 13.3 % (11.6-17.2); White Blood Count 13.2 th/mm3 (4.0-11.0)
[2018-01-25 21:25] LABS: Activated Partial Thrombo Time 23.3 sec (24.3-30.1); Prothrombin Time 10.2 sec (9.8-11.6)
[2018-01-25 21:28] LABS: Anion Gap 13 meq/L (5-15); Aspartate Aminotransferase 305 U/L (15-37); Blood Urea Nitrogen 15 mg/dL (7-18); Calcium 10.2 mg/dL (8.5-10.1); Carbon Dioxide 21.7 meq/L (21.0-32.0); Chloride 107 meq/L (98-107); Glomerular Filtration Rate 30 mL/min (>89); Glucose,Random 134 mg/dL (74-106); Magnesium 2.2 mg/dL (1.5-2.5); Potassium 3.9 meq/L (3.5-5.1); Sodium 142 meq/L (136-145)
[2018-01-25 21:30] LABS: Alanine Aminotransferase 163 U/L (10-53)
--- NOTE | 2018-01-25 21:46 | XR ---
EXAM DATE: 01/25/2018 8:25 PM EDT AGE/SEX: 77 years / Female INDICATIONS: Syncope. CLINICAL DATA: This is the patient's initial encounter. Patient reports that signs and symptoms have been present for 1 day and indicates a pain score of Nonresponsive. MEDICAL/SURGICAL HISTORY: . Hypercholesterolemia. Hypertension None. [place] [facility] [place] . FINDINGS: A single AP view of the chest demonstrates the lungs to be symmetrically aerated without evidence of mass, infiltrate or effusion. The cardiomediastinal contours are unremarkable. Osseous structures a re intact. CONCLUSION: No acute cardiopulmonary process. Electronically signed by: Andrew Bui MD 01/25/2018 9:44 PM EDT
[2018-01-25 21:55] LABS: Alkaline Phosphatase 68 U/L (45-117); Creatine Kinase 13637 U/L (26-192); Troponin I 0.04 ng/mL (0.02-0.05)
--- NOTE | 2018-01-25 21:55 | CT ---
EXAM DATE: 01/25/2018 9:18 PM EDT AGE/SEX: 77 years / Female INDICATIONS: Trauma, fall. CLINICAL DATA: This is the patient's initial encounter. Patient reports that signs and symptoms have been present for 1 day and indicates a pain score of 3/10. MEDICAL/SURGICAL HISTORY: Hypertension. Stroke. None. RADIATION DOSE: 21.89 CTDI (mGy) COMPARISON: No prior exams available for comparison. TECHNIQUE: Contiguous axial images were obtained using helical multirow detector technique. The vol umetric data was post-processed with multiplanar reconstruction in oblique axial, sagittal, and coron al planes. Using automated exposure control and adjustment of the mA and/or kV according to patient s ize, radiation dose was kept as low as reasonably achievable to obtain optimal diagnostic quality cate ges. DICOM format image data is available electronically for review and comparison. FINDINGS: Vertebrae: Normal vertebral body height. Alignment: Normal. No subluxation. C2-3: The bony spinal canal is normal in size. No evidence of disc bulge or herniation. The neural foramina are bilaterally patent. C3-4: There is moderate disc bulge and osteophytic ridging without significant stenosis. There is mi ld uncovertebral and facet hypertrophy in the left causing some narrowing of the left neural foramina . The right neural foramina is patent. C4-5: There is moderate disc bulge and osteophytic ridging. The neural foramina are patent bilateral ly. C5-6: The disc demonstrates decreased height. There is mild disc bulge and osteophytic ridging. Ther e is uncovertebral hypertrophy. There is narrowing of the neural foramina bilaterally. C6-7: The disc demonstrates decreased height. There is mild posterior osteophytic ridging and bulgin g. There is uncovertebral hypertrophy being worse on the left. There is narrowing of the left neural foramina. C7-T1: The bony spinal canal is normal in size. No evidence of disc bulge or herniation. The neura l foramina are bilaterally patent. There is left facet hypertrophy. CONCLUSION: 1. No acute bony abnormalities seen. 2. Degenerative change. Electronically signed by: Andrew Bui MD 01/25/2018 9:54 PM EDT
[2018-01-25 21:56] LABS: Amorphous Sediment,Urine Rare /hpf; Bacteria,Urine Many /hpf; Bilirubin,Urine Negative (Negative); Clarity,Urine Cloudy (Clear); Color,Urine Red (Yellw/Straw); Glucose,Urine (UA) Negative (Negative); Leukocyte Esterase,Urine Small (Negative); Mucus,Urine Few /lpf (Occasional); Nitrite,Urine Positive (Negative); Specific Gravity,Urine 1.012 (1.002-1.035); Squamous Epithelial Cell,Urine 2 /hpf (0-5)
--- NOTE | 2018-01-25 21:57 | CT ---
EXAM DATE: 01/25/2018 9:13 PM EDT AGE/SEX: 77 years / Female INDICATIONS: Trauma, fall. CLINICAL DATA: This is the patient's initial encounter. Patient reports that signs and symptoms have been present for 1 day and indicates a pain score of 0/10. MEDICAL/SURGICAL HISTORY: Hypertension. Stroke. None. RADIATION DOSE: 56.35 CTDI (mGy) [place] [facility] [place] [facility] [place]. . TECHNIQUE: CT of the head without contrast. Using automated exposure control and adjustment of the mA and/or kV according to patient size, radiation dose was kept as low as reasonably achievable to ob tain optimal diagnostic quality images. DICOM format image data is available electronically for revi ew and comparison. FINDINGS: Cerebrum: There is a large area of encephalomalacia involving the left temporal lobe, left occipital lobe and portions of the left parietal lobe. There is encephalization involving the left basal gangl ia and internal capsule regions. There is expansion of the left lateral ventricle in response to this . There is low density in the periventricular white matter. There is an area of prior infarction invo lving the anterior left thalamus. The ventricles are normal for age. No evidence of midline shift, m ass lesion, hemorrhage or acute infarction. No extraaxial fluid collections are seen. Posterior Fossa: The cerebellum and brainstem are intact. The 4th ventricle is midline. The cerebe llopontine angle is unremarkable. Extracranial: The visualized portion of the orbits is intact. Skull: The calvaria is intact. No evidence of skull fracture. CONCLUSION: 1. No acute abnormality is seen. 2. Large areas of encephalization involving the left temporal, occipital, and parietal lobe. There i s also areas of encephalization involving the left basal ganglia and anterior left thalamus from prio r infarction. Electronically signed by: Andrew Bui MD 01/25/2018 9:56 PM EDT
[2018-01-25 22:07] LABS: CKMB Percent 0.4 % (0.0-4.0); Creatine Kinase MB 48.4 ng/mL (0.5-3.6)
--- NOTE | 2018-01-25 22:41 | US ---
EXAM DATE: 01/25/2018 9:52 PM EDT AGE/SEX: 77 years / Female INDICATIONS: Right leg swelling. CLINICAL DATA: This is the patient's initial encounter. Patient reports that signs and symptoms have been present for 2 days and indicates a pain score of 3/10. MEDICAL/SURGICAL HISTORY: Hypertension. Stroke. Hysterectomy. COMPARISON: No prior exams available for comparison. TECHNIQUE: Venous ultrasound of both lower extremities was performed from the inguinal ligament to t he proximal calf. Real-time, color Doppler and spectral tracing, compression and augmentation techni ques were used. FINDINGS: Normal compression of the deep venous system from the inguinal region to the proximal calf . No echogenic clot is seen. Normal response of the venous system to augmentation and respiration. CONCLUSION: No DVT. Electronically signed by: Andrew Bui MD 01/25/2018 10:40 PM EDT
[2018-01-26] MEDS ORDERED: Bisacodyl 10 MG Supp RECTAL PRN (00:18)
[2018-01-26] MEDS ORDERED: Temazepam 15 MG Capsule PO PRN (00:18)
[2018-01-26] MEDS ORDERED: Acetaminophen 325 MG Tablet PO PRN (00:18)
[2018-01-26] MEDS ORDERED: Dextrose 50% in Water 50 ML Vial IV.PUSH PRN (00:24)
--- NOTE | 2018-01-26 00:25 | P.HP ---
History of Present Illness Service: [facility] Primary Care Physician: UNKNOWN Chief Complaint: Fall History of Present Illness: 77-year-old female with a previous history of CVA, hypertension and diabetes mellitus presents to the emergency department for the evaluation of a fall. Per the patient's family she was unsteady on her feet when going to the bathroom and fell to the ground. 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 The patient is able to answer questions with single words and denies any pain. Denies loss of consciousness associated with the fall. No chest pain or shortness of breath. No abdominal pain. No nausea/vomiting/diarrhea. Residual right-sided upper and lower extremity weakness. The family is concerned about increasing confusion and weakness. Patient denies any dysuria or pelvic pain. No fever/ chills. Inpatient Certification: I certify that the inpatient services were ordered in accordance with Medicare regulations governing the order. This includes certification that hospital inpatient services are reasonable and necessary and in the case of services not specified as inpatient-only under 42 CFR 419.22(n), that they are appropriately provided as inpatient services in accordance to with the 2-midnight benchmark under 43 CFR 412.3(e) Review of Systems All other systems reviewed negative except as stated in HPI PMFSH - History History Provided By: Family Member - Medical History Medical History: Medical History (Last Updated 01/26/18 @ 00:16 by Monika Boland MD) History of hysterectomy (Acute) Diabetes mellitus High cholesterol Hypertension Stroke - Family History Family History: Family History (Last Updated 01/26/18 @ 00:16 by Monika Boland MD) Other No family history of cardiac disease - Tobacco History Second Hand Smoke Exposure: Yes Smoking Status: Former smoker - Alcohol History How Often Do You Have a Drink Containing Alcohol: Never - Substance Use History Substance History: No History of Abuse - Travel History Recent Travel in the [place] Within the Last 8 Weeks: No Recent Travel Out of the Country Within the Last 8 Weeks: No - Immunization History Tetanus Immunization: <5 Years Hx Influenza Vaccine This Season: Yes Medications and Allergies Active Medications: Active Medications Sodium Chloride (Ns Flush) 2 ml IV.FLUSH PRN PRN PRN Reason: FLUSH AFTER USING IV ACCESS Allergies Allergy/AdvReac Type Severity Reaction Status Date / Time No Known Allergies Allergy Unverified 01/25/18 19:26 Home Medications Medication Instructions Recorded Confirmed Type aspirin [Aspir-81] 81 mg PO DAILY 01/25/18 01/25/18 History cholecalciferol (vitamin D3) 5,000 unit PO DAILY 01/25/18 01/25/18 History [Vitamin D3] metformin 500 mg PO BID 01/25/18 01/25/18 History progesterone micronized 100 mg PO HS 01/25/18 01/25/18 History rosuvastatin 40 mg PO DAILY 01/25/18 01/25/18 History trazodone 50 mg PO HS 01/25/18 01/25/18 History Exam Vital signs: Vital Signs 01/25/18 19:27 01/25/18 23:27 01/25/18 23:30 Temperature 98 F Pulse Rate 104 H 96 H Respiratory Rate 16 16 Blood Pressure 114/80 126/58 L Pulse Oximetry 97 96 Intake & Output 01/25/18 01/25/18 01/26/18 06:59 18:59 06:59 Weight 81.647 kg Narrative: Gen.: No acute distress Head: Normocephalic. Atraumatic. EENT: Pupils equal round and reactive to light. Nose without drainage. Airway intact. Throat without injection. Cardiovascular: Regular rate and rhythm. No murmurs, rubs or gallops. Respiratory: Lungs clear to auscultation bilaterally. No wheezes or rhonchi. Abdomen: Soft, nontender, nondistended. No peritoneal signs. Musculoskeletal: No gross deformities. No edema. Skin: No obvious rashes or erythema. Neuro: Aphasia. Able to answer yes or no. Right-sided upper and lower extremity residual weakness, at baseline. Results - Labs CBC & Chem 7: 01/25/18 20:34 01/25/18 20:34 Labs: Laboratory Results - last 24 hr 01/25/18 01/25/18 01/25/18 20:34 20:34 20:34 WBC 13.2 H RBC 4.31 Hgb 12.6 Hct 38.1 MCV 88.3 MCH 29.3 MCHC 33.1 RDW 13.3 Plt Count 187 MPV 10.2 Neut % (Auto) 77.8 H Lymph % (Auto) 14.7 [place] % (Auto) 6.5 Eos % (Auto) 0.7 Baso % (Auto) 0.3 Neut # (Auto) 10.3 H Lymph # (Auto) 1.9 [place] # (Auto) 0.9 Eos # (Auto) 0.1 Baso # (Auto) 0.0 WBC Differential . Differential Comment Auto diff final PT 10.2 INR 1.0 APTT 23.3 L Sodium 142 Potassium 3.9 Chloride 107 Carbon Dioxide 21.7 Anion Gap 13 BUN 15 Creatinine 1.67 H Estimated GFR 30 L Random Glucose 134 H Calcium 10.2 H Magnesium 2.2 Total Bilirubin 0.6 AST 305 H ALT 163 H Alkaline Phosphatase 68 Total Creatine Kinase 28668 H CK-MB (CK-2) 48.4 H CK-MB (CK-2) % 0.4 Troponin I 0.04 B-Natriuretic Peptide Total Protein 7.0 Albumin 3.0 L TSH 1.730 Urine Color Urine Clarity Urine pH Ur Specific [place] Urine Protein Urine Glucose (UA) Urine Ketones Urine Occult Blood Urine Nitrate Urine Bilirubin Urine Urobilinogen Ur Leukocyte Esterase Urine RBC Urine WBC Urine WBC Clumps Ur Squamous Epith Cells Amorphous Sediment Urine Bacteria Urine Mucus Micro UA Comment Urine Culture Comments 01/25/18 01/25/18 20:34 21:38 WBC RBC Hgb Hct MCV MCH MCHC RDW Plt Count MPV Neut % (Auto) Lymph % (Auto) [place] % (Auto) Eos % (Auto) Baso % (Auto) Neut # (Auto) Lymph # (Auto) [place] # (Auto) Eos # (Auto) Baso # (Auto) WBC Differential Differential Comment PT INR APTT Sodium Potassium Chloride Carbon Dioxide Anion Gap BUN Creatinine Estimated GFR Random Glucose Calcium Magnesium Total Bilirubin AST ALT Alkaline Phosphatase Total Creatine Kinase CK-MB (CK-2) CK-MB (CK-2) % Troponin I B-Natriuretic Peptide 5 Total Protein Albumin TSH Urine Color Red Urine Clarity Cloudy H Urine pH 6.0 Ur Specific [place] 1.012 Urine Protein 100 H Urine Glucose (UA) Negative Urine Ketones Negative Urine Occult Blood Large H Urine Nitrate Positive H Urine Bilirubin Negative Urine Urobilinogen 2.0 H Ur Leukocyte Esterase Small H Urine RBC 3 Urine WBC 74 H Urine WBC Clumps Few H Ur Squamous Epith Cells 2 Amorphous Sediment Rare H Urine Bacteria Many H Urine Mucus Few H Micro UA Comment Culture indicated Urine Culture Comments Culture indicated - Imaging Impressions Chest X-Ray 01/25/18 20:11 CONCLUSION: No acute cardiopulmonary process. Head CT 01/25/18 20:11 CONCLUSION: 1. No acute abnormality is seen. 2. Large areas of encephalization involving the left temporal, occipital, and parietal lobe. There is also areas of encephalization involving the left basal ganglia and anterior left thalamus from prior infarction. Cervical Spine CT 01/25/18 20:12 CONCLUSION: 1. No acute bony abnormalities seen. 2. Degenerative change. Venous Doppler Study 01/25/18 20:42 CONCLUSION: No DVT. Caprini VTE Risk Assessment Caprini VTE Risk Assessment: Moderate/High Risk (score >= 2) Caprini Risk Assessment Model: Point Value = 1 Point Value = 2 Point Value = 3 Point Value = 5 Age 41-60 Minor surgery BMI > 25 kg/m2 Swollen legs Varicose veins or History of unexplained or recurrent spontaneous Oral contraceptives or hormone replacement Sepsis (< 1 month) Serious lung disease, including pneumonia (< 1 month) Abnormal pulmonary function Acute myocardial infarction Congestive heart failure (< 1 month) History of inflammatory bowel disease Medical patient at bed rest Age 61-74 Arthroscopic surgery Major open surgery (> 45 min) Laparoscopic surgery (> 45 min) Malignancy Confined to bed (> 72 hours) Immobilizing plaster cast Central venous access Age >= 75 History of VTE Family history of VTE Factor V Leiden Prothrombin [id number] Lupus anticoagulant Anticardiolipin antibodies Elevated serum homocysteine Heparin-induced thrombocytopenia Other congenital or acquired thrombophilia Stroke (< 1 month) Elective arthroplasty Hip, pelvis, or leg fracture Acute spinal cord injury (< 1 month) Prophylaxis Regimen: Total Risk Factor Score Risk Level Prophylaxis Regimen 0-1 Low Early ambulation 2 Moderate Order ONE of the following: *Sequential Compression Device (SCD) *Heparin 5000 units SQ BID 3-4 Higher Order ONE of the following medications: *Heparin 5000 units SQ TID *Enoxaparin/Lovenox 40 mg SQ daily (WT < 150 kg, CrCl > 30 mL/min) *Enoxaparin/Lovenox 30 mg SQ daily (WT < 150 kg, CrCl > 10-29 mL/min) *Enoxaparin/Lovenox 30 mg SQ BID (WT < 150 kg, CrCl > 30 mL/min) AND/OR *Sequential Compression Device (SCD) 5 or more Highest Order ONE of the following medications: *Heparin 5000 units SQ TID (Preferred with Epidurals) *Enoxaparin/Lovenox 40 mg SQ daily (WT < 150 kg, CrCl > 30 mL/min) *Enoxaparin/Lovenox 30 mg SQ daily (WT < 150 kg, CrCl > 10-29 mL/min) *Enoxaparin/Lovenox 30 mg SQ BID (WT < 150 kg, CrCl > 30 mL/min) AND *Sequential Compression Device (SCD) Assessment and Plan - Plan Assessment/plan: 1. Rhabdomyolysis/acute kidney injury Total creatinine kinase 74430 Creatinine 1.67, baseline unknown Aggressive IV fluid hydration Monitor renal function Repeat CK in a.m. 2. Urinary tract infection UA consistent with urinary tract infection Urine culture pending Rocephin 3. Diabetes mellitus Holding home metformin Sliding-scale insulin Monitor blood glucose 4. History of CVA Continue home aspirin FEN Heart healthy diet Electrolytes: Monitor and replete as needed NS at 200 cc/hour Heparin
[2018-01-26] MEDS: Heparin - SQ 10,000 UNITS/ML Vial SQ SCH ×2 (00:56→13:42)
[2018-01-26] MEDS: traZODone 50 MG Tablet PO SCH ×2 (00:56→20:59)
[2018-01-26] MEDS: Sod Chloride 0.9% Inj 1,000 ML IV.CONT SCH ×4 (00:57→17:00)
[2018-01-26] MEDS: Insulin NovoLOG Aspart Correctional Sugar Inj SQ SCH ×5 (05:29→20:54)
[2018-01-26 08:44] LABS: Baso % (Auto) 0.5 % (0.0-2.0); Eos # (Auto) 0.1 th/mm3 (0.0-0.4); Eos % (Auto) 0.9 % (0.0-4.0); Hemoglobin 10.8 gm/dL (11.6-15.3); Lymph # (Auto) 2.1 th/mm3 (1.0-4.8); Mean Corpuscular HGB Conc 33.6 % (32.0-36.0); Mean Corpuscular Hemoglobin 29.5 pg (27.0-34.0); Mean Corpuscular Volume 87.7 fL (80.0-100.0); Mean Platelet Volume 9.8 fL (7.0-11.0); Mono # (Auto) 0.6 th/mm3 (0.0-0.9); Mono % (Auto) 6.7 % (0.0-8.0); Neut # (Auto) 5.6 th/mm3 (1.8-7.7); Neut % (Auto) 66.9 % (16.0-70.0); Platelet Count 160 th/mm3 (150-450); Red Blood Count 3.65 mil/mm3 (4.00-5.30); Red Cell Distribution Width 13.4 % (11.6-17.2); White Blood Count 8.4 th/mm3 (4.0-11.0)
[2018-01-26 09:18] LABS: Calcium 8.8 mg/dL (8.5-10.1); Carbon Dioxide 21.5 meq/L (21.0-32.0)
[2018-01-26 09:24] LABS: Potassium 2.9 meq/L (3.5-5.1)
[2018-01-26 10:10] LABS: CKMB Percent 0.2 % (0.0-4.0); Creatine Kinase MB 28.7 ng/mL (0.5-3.6)
[2018-01-26] MEDS: Senna/Docusate Sodium 8.6/50 MG Tablet PO SCH ×2 (10:56→20:59)
[2018-01-26] MEDS: Potassium Chlor 20 mEq Premix 20 MEQ/100 ML PIGGYBACK IV.SIG SCH ×2 (13:42→16:58)
--- NOTE | 2018-01-26 17:25 | ECG ---
Date Performed: 01/25/2018 Time Performed: 19:38:04 PTAGE: 77 years EKG: SINUS TACHYCARDIA LOW QRS VOLTAGE IN PRECORDIAL LEADS ABNORMAL RHYTHM ECG PREVIOUS TRACING : 10/02/2016 10.35 Since the previous tracing, no significant change noted DOCTOR: Claudio Potts Interpretating Date/Time 01/26/2018 17:23:51
[2018-01-26] MEDS: PROGESTERONE 100 MG PO SCH (20:58)
[2018-01-26 21:39] LABS: Calcium 8.6 mg/dL (8.5-10.1); Potassium 3.1 meq/L (3.5-5.1)
[2018-01-27] MEDS: Heparin - SQ 10,000 UNITS/ML Vial SQ SCH ×2 (03:53→12:46)
[2018-01-27] MEDS: Sod Chloride 0.9% Inj 1,000 ML IV.CONT SCH ×4 (03:53→14:57)
[2018-01-27] MEDS: Insulin NovoLOG Aspart Correctional Sugar Inj SQ SCH ×5 (04:24→20:59)
--- NOTE | 2018-01-27 08:18 | P.PN ---
Subjective Interval history: f/u fall, confusion and weakness. Patient has no complaints she is confused per supervisor gate services/POA, she is almost baseline Physical Exam Vital signs: Vital Signs 01/26/18 08:49 01/26/18 12:00 01/26/18 12:14 Temperature 97.4 F L Pulse Rate 80 80 70 Respiratory Rate 17 18 18 Blood Pressure 119/57 L 116/59 L 127/86 Pulse Oximetry 96 97 97 01/26/18 16:00 01/26/18 20:00 01/27/18 00:00 Temperature 100.7 F H 97.3 F L 99.0 F Pulse Rate 94 H 83 85 Respiratory Rate 18 18 18 Blood Pressure 127/63 133/62 143/67 H Pulse Oximetry 96 98 98 01/27/18 04:00 Temperature 98.4 F Pulse Rate 80 Respiratory Rate 18 Blood Pressure 130/62 Pulse Oximetry 96 Intake & Output 01/26/18 01/27/18 01/27/18 18:59 06:59 18:59 Intake Total 3060 / 3060 1999 / 1999 800 / 800 Output Total 650 / 650 1400 / 1400 Balance 2410 / 2410 600 / 600 800 / 800 Weight 88.8 kg Intake: IV 2100 / 2100 1999 / 1999 800 / 800 NS Inj 1,000 ML @ 200 mls/hr IV 1999 / 1999 1999 / 1999 .CONT .Q5H [facility] Rx#:[id number] KCl 20 mEq Premix Inj 20 meq In 100 / 100 100 ml @ 50 mls/hr IV.SIG Q2H [facility] Rx#:[id number] Rocephin Inj 1,000 MG In NS Inj 100 / 100 100 ML @ 200 mls/hr IV.SIG Q24H S[facility] Rx#:[id number] Oral 960 / 960 Output: Urine 1400 / 1400 Urine Amount (Catheter) 650 / 650 Indwelling Urethral Catheter 650 / 650 Narrative: Gen.: No acute distress Cardiovascular: Regular rate and rhythm. No murmurs, rubs or gallops. Respiratory: Lungs clear to auscultation bilaterally. No wheezes or rhonchi. Abdomen: Soft, nontender, nondistended. No peritoneal signs. Musculoskeletal: No gross deformities. No edema. Skin: No obvious rashes or erythema. Neuro: Awake and alert. Right-sided upper and lower extremity residual weakness , at baseline. - Urinary Catheter Management Indwelling Urethral Catheter Cath placed during this visit: yes Reason for continuing: Hourly intake/output Insertion date: 01/26/18 Insertion time: 00:10 Results - Labs CBC & Chem 7: 01/26/18 06:25 01/27/18 06:40 Laboratory Results - last 24 hr 01/25/18 01/26/18 01/26/18 21:38 06:25 06:25 WBC 8.4 RBC 3.65 L Hgb 10.8 L Hct 32.0 L MCV 87.7 MCH 29.5 MCHC 33.6 RDW 13.4 Plt Count 160 MPV 9.8 Neut % (Auto) 66.9 Lymph % (Auto) 25.0 [place] % (Auto) 6.7 Eos % (Auto) 0.9 Baso % (Auto) 0.5 Neut # (Auto) 5.6 Lymph # (Auto) 2.1 [place] # (Auto) 0.6 Eos # (Auto) 0.1 Baso # (Auto) 0.0 WBC Differential . Differential Comment Auto diff final Sodium 144 Potassium 2.9 L* D Chloride 111 H Carbon Dioxide 21.5 Anion Gap 12 BUN 14 Creatinine 1.43 H Estimated GFR 36 L POC Glucose Random Glucose 102 Calcium 8.8 D Total Creatine Kinase 23385 H CK-MB (CK-2) 28.7 H CK-MB (CK-2) % 0.2 Urine Color Red Urine Clarity Cloudy H Urine pH 6.0 Ur Specific [place] 1.012 Urine Protein 100 H Urine Glucose (UA) Negative Urine Ketones Negative Urine Occult Blood Large H Urine Nitrate Positive H Urine Bilirubin Negative Urine Urobilinogen 2.0 H Ur Leukocyte Esterase Small H Urine RBC 3 Urine WBC 74 H Urine WBC Clumps Few H Ur Squamous Epith Cells 2 Amorphous Sediment Rare H Urine Bacteria Many H Urine Mucus Few H Micro UA Comment Culture indicated Urine Culture Comments Culture indicated 01/26/18 01/26/18 01/26/18 08:33 13:02 17:23 WBC RBC Hgb Hct MCV MCH MCHC RDW Plt Count MPV Neut % (Auto) Lymph % (Auto) [place] % (Auto) Eos % (Auto) Baso % (Auto) Neut # (Auto) Lymph # (Auto) [place] # (Auto) Eos # (Auto) Baso # (Auto) WBC Differential Differential Comment Sodium Potassium Chloride Carbon Dioxide Anion Gap BUN Creatinine Estimated GFR POC Glucose 127 H 140 H 238 H Random Glucose Calcium Total Creatine Kinase CK-MB (CK-2) CK-MB (CK-2) % Urine Color Urine Clarity Urine pH Ur Specific [place] Urine Protein Urine Glucose (UA) Urine Ketones Urine Occult Blood Urine Nitrate Urine Bilirubin Urine Urobilinogen Ur Leukocyte Esterase Urine RBC Urine WBC Urine WBC Clumps Ur Squamous Epith Cells Amorphous Sediment Urine Bacteria Urine Mucus Micro UA Comment Urine Culture Comments 01/26/18 01/26/18 01/27/18 19:51 21:09 04:24 WBC RBC Hgb Hct MCV MCH MCHC RDW Plt Count MPV Neut % (Auto) Lymph % (Auto) [place] % (Auto) Eos % (Auto) Baso % (Auto) Neut # (Auto) Lymph # (Auto) [place] # (Auto) Eos # (Auto) Baso # (Auto) WBC Differential Differential Comment Sodium 145 Potassium 3.1 L Chloride 115 H Carbon Dioxide 20.0 L Anion Gap 10 BUN 15 Creatinine 1.44 H Estimated GFR 35 L POC Glucose 191 H 133 H Random Glucose 140 H Calcium 8.6 Total Creatine Kinase CK-MB (CK-2) CK-MB (CK-2) % Urine Color Urine Clarity Urine pH Ur Specific [place] Urine Protein Urine Glucose (UA) Urine Ketones Urine Occult Blood Urine Nitrate Urine Bilirubin Urine Urobilinogen Ur Leukocyte Esterase Urine RBC Urine WBC Urine WBC Clumps Ur Squamous Epith Cells Amorphous Sediment Urine Bacteria Urine Mucus Micro UA Comment Urine Culture Comments 01/27/18 08:01 WBC RBC Hgb Hct MCV MCH MCHC RDW Plt Count MPV Neut % (Auto) Lymph % (Auto) [place] % (Auto) Eos % (Auto) Baso % (Auto) Neut # (Auto) Lymph # (Auto) [place] # (Auto) Eos # (Auto) Baso # (Auto) WBC Differential Differential Comment Sodium Potassium Chloride Carbon Dioxide Anion Gap BUN Creatinine Estimated GFR POC Glucose 139 H Random Glucose Calcium Total Creatine Kinase CK-MB (CK-2) CK-MB (CK-2) % Urine Color Urine Clarity Urine pH Ur Specific [place] Urine Protein Urine Glucose (UA) Urine Ketones Urine Occult Blood Urine Nitrate Urine Bilirubin Urine Urobilinogen Ur Leukocyte Esterase Urine RBC Urine WBC Urine WBC Clumps Ur Squamous Epith Cells Amorphous Sediment Urine Bacteria Urine Mucus Micro UA Comment Urine Culture Comments Microbiology 01/25/18 21:38 Clean Catch Urine Urine Culture - Preliminary gram negative rods Assessment and Plan - Assessment (1) Rhabdomyolysis Code(s): M62.82 - Rhabdomyolysis Status: Acute (2) Urinary tract infection Code(s): N39.0 - Urinary tract infection, site not specified Status: Acute - Plan 1. Rhabdomyolysis/acute kidney injury Total creatinine kinase 11177 Creatinine 1.67, baseline unknown Aggressive IV fluid hydration Monitor renal function Repeat CK in a.m. 2. Sepsis 2/2 GNR Urinary tract infection UA consistent with urinary tract infection Urine culture pending Rocephin 3. Diabetes mellitus Holding home metformin Sliding-scale insulin Monitor blood glucose 4. History of CVA Continue home aspirin. Fall precautions. PT eval FEN Heart healthy diet Electrolytes: Monitor and replete as needed NS at 200 cc/hour Heparin (1) Rhabdomyolysis Qualifiers: Rhabdomyolysis type: non-traumatic Qualified Code(s): M62.82 - Rhabdomyolysis (2) Urinary tract infection Qualifiers: Urinary tract infection type: site unspecified Hematuria presence: without hematuria Qualified Code(s): N39.0 - Urinary tract infection, site not specified
[2018-01-27] MEDS: Senna/Docusate Sodium 8.6/50 MG Tablet PO SCH ×2 (08:56→20:58)
[2018-01-27 09:52] LABS: Calcium 8.5 mg/dL (8.5-10.1); Carbon Dioxide 17.7 meq/L (21.0-32.0)
[2018-01-27 10:34] LABS: Potassium 3.6 meq/L (3.5-5.1)
[2018-01-27 10:56] LABS: CKMB Percent 0.2 % (0.0-4.0); Creatine Kinase MB 15.9 ng/mL (0.5-3.6)
[2018-01-27 12:36] LABS: CKMB Percent 0.3 % (0.0-4.0); Creatine Kinase MB 15.8 ng/mL (0.5-3.6)
[2018-01-27] MEDS: KCL 20 mEq/NACL 0.45% Inj 1,000 ML IV.CONT SCH (15:12)
[2018-01-27] MEDS: traZODone 50 MG Tablet PO SCH (20:58)
[2018-01-27] MEDS: PROGESTERONE 100 MG PO SCH (21:00)
[2018-01-28] MEDS: Heparin - SQ 10,000 UNITS/ML Vial SQ SCH ×2 (02:00→12:37)
[2018-01-28] MEDS: Insulin NovoLOG Aspart Correctional Sugar Inj SQ SCH ×5 (03:15→21:11)
[2018-01-28] MEDS: KCL 20 mEq/NACL 0.45% Inj 1,000 ML IV.CONT SCH ×3 (03:15→21:12)
[2018-01-28 08:22] LABS: Baso % (Auto) 0.5 % (0.0-2.0); Eos # (Auto) 0.1 th/mm3 (0.0-0.4); Eos % (Auto) 1.3 % (0.0-4.0); Hematocrit 33.7 % (35.0-46.0); Hemoglobin 11.4 gm/dL (11.6-15.3); Lymph # (Auto) 1.5 th/mm3 (1.0-4.8); Lymph % (Auto) 16.5 % (9.0-44.0); Mean Corpuscular HGB Conc 33.9 % (32.0-36.0); Mean Corpuscular Hemoglobin 29.8 pg (27.0-34.0); Mean Platelet Volume 9.7 fL (7.0-11.0); Mono # (Auto) 0.5 th/mm3 (0.0-0.9); Mono % (Auto) 5.4 % (0.0-8.0); Neut # (Auto) 6.8 th/mm3 (1.8-7.7); Neut % (Auto) 76.3 % (16.0-70.0); Platelet Count 171 th/mm3 (150-450); Red Blood Count 3.83 mil/mm3 (4.00-5.30); Red Cell Distribution Width 13.2 % (11.6-17.2); White Blood Count 8.9 th/mm3 (4.0-11.0)
[2018-01-28 09:00] LABS: Alanine Aminotransferase 133 U/L (10-53); Albumin 2.1 g/dL (3.4-5.0); Alkaline Phosphatase 55 U/L (45-117); Anion Gap 11 meq/L (5-15); Aspartate Aminotransferase 198 U/L (15-37); Blood Urea Nitrogen 10 mg/dL (7-18); Calcium 8.7 mg/dL (8.5-10.1); Carbon Dioxide 20.1 meq/L (21.0-32.0); Chloride 114 meq/L (98-107); Glomerular Filtration Rate 45 mL/min (>89); Glucose,Random 111 mg/dL (74-106); Magnesium 2.2 mg/dL (1.5-2.5); Potassium 3.4 meq/L (3.5-5.1); Sodium 145 meq/L (136-145); Total Protein 5.5 g/dL (6.4-8.2)
[2018-01-28] MEDS: Senna/Docusate Sodium 8.6/50 MG Tablet PO SCH ×2 (09:00→21:09)
--- NOTE | 2018-01-28 14:39 | P.PN ---
Subjective Interval history: Follow-up UTI and rhabdomyolysis. Patient is awake tries to communicate but difficult to understand because of baseline expressive aphasia. Physical Exam Vital signs: Vital Signs 01/27/18 16:00 01/27/18 20:00 01/28/18 00:00 Temperature 97.8 F 97.5 F L 98.1 F Pulse Rate 82 80 83 Respiratory Rate 18 16 18 Blood Pressure 136/65 134/63 119/58 L Pulse Oximetry 98 98 97 01/28/18 04:00 01/28/18 08:00 01/28/18 11:26 Temperature 98 F 98.2 F Pulse Rate 83 84 79 Respiratory Rate 16 17 Blood Pressure 129/66 128/67 Pulse Oximetry 96 97 01/28/18 12:00 Temperature 97.6 F Pulse Rate 85 Respiratory Rate 18 Blood Pressure 133/60 Pulse Oximetry 98 Intake & Output 01/27/18 01/28/18 01/28/18 18:59 06:59 18:59 Intake Total 3440 / 3440 1220 / 1220 1000 / 1000 Output Total 1550 / 1550 Balance 1890 / 1890 1220 / 1220 1000 / 1000 Intake: IV 2600 / 2600 1100 / 1100 1000 / 1000 Potassium Chlor 20 mEq/NACL 0. 1000 / 1000 1000 / 1000 45% Inj 1,000 ML @ 100 mls/hr IV.CONT .Q10H [facility] Rx#:[id number] NS Inj 1,000 ML @ 200 mls/hr IV 1800 / 1800 .CONT .Q5H [facility] Rx#:[id number] Rocephin Inj 1,000 MG In NS Inj 100 / 100 100 / 100 100 ML @ 200 mls/hr IV.SIG Q24H [facility] Rx#:[id number] Oral 840 / 840 120 / 120 Output: Urine 1550 / 1550 Other: # Voids 1 # Incontinent Voids 7 Narrative: Gen.: No acute distress Cardiovascular: Regular rate and rhythm. No murmurs, rubs or gallops. Respiratory: Lungs clear to auscultation bilaterally. No wheezes or rhonchi. Abdomen: Soft, nontender, nondistended. No peritoneal signs. Musculoskeletal: No gross deformities. No edema. Skin: No obvious rashes or erythema. Neuro: Awake and alert. Right-sided upper and lower extremity residual weakness , right facial droop with expressive aphasia at baseline. - Urinary Catheter Management Indwelling Urethral Catheter Cath placed during this visit: yes Reason for continuing: Hourly intake/output Insertion date: 01/26/18 Insertion time: 00:10 Results - Labs CBC & Chem 7: 01/28/18 05:20 01/28/18 05:20 Laboratory Results - last 24 hr 01/27/18 01/27/18 01/28/18 17:33 20:01 05:20 WBC 8.9 RBC 3.83 L Hgb 11.4 L Hct 33.7 L MCV 88.0 MCH 29.8 MCHC 33.9 RDW 13.2 Plt Count 171 MPV 9.7 Neut % (Auto) 76.3 H Lymph % (Auto) 16.5 [place] % (Auto) 5.4 Eos % (Auto) 1.3 Baso % (Auto) 0.5 Neut # (Auto) 6.8 Lymph # (Auto) 1.5 [place] # (Auto) 0.5 Eos # (Auto) 0.1 Baso # (Auto) 0.0 WBC Differential . Differential Comment Auto diff final Sodium Potassium Chloride Carbon Dioxide Anion Gap BUN Creatinine Estimated GFR POC Glucose 127 H 190 H Random Glucose Calcium Magnesium Total Bilirubin AST ALT Alkaline Phosphatase Total Protein Albumin 01/28/18 01/28/18 01/28/18 05:20 08:15 12:04 WBC RBC Hgb Hct MCV MCH MCHC RDW Plt Count MPV Neut % (Auto) Lymph % (Auto) [place] % (Auto) Eos % (Auto) Baso % (Auto) Neut # (Auto) Lymph # (Auto) [place] # (Auto) Eos # (Auto) Baso # (Auto) WBC Differential Differential Comment Sodium 145 Potassium 3.4 L Chloride 114 H Carbon Dioxide 20.1 L Anion Gap 11 BUN 10 Creatinine 1.18 H Estimated GFR 45 L POC Glucose 132 H 144 H Random Glucose 111 H Calcium 8.7 Magnesium 2.2 Total Bilirubin 0.4 AST 198 H ALT 133 H Alkaline Phosphatase 55 Total Protein 5.5 L D Albumin 2.1 L Assessment and Plan - Assessment (1) Rhabdomyolysis Code(s): M62.82 - Rhabdomyolysis Status: Acute (2) Urinary tract infection Code(s): N39.0 - Urinary tract infection, site not specified Status: Acute - Plan 1. Rhabdomyolysis/acute kidney injury Total creatinine kinase today pending Improving creatinine Aggressive IV fluid hydration Monitor renal function Repeat CK in a.m. 2. Sepsis 2/2 GNR Urinary tract infection UA consistent with urinary tract infection Urine culture pending Rocephin 3. Diabetes mellitus Holding home metformin Sliding-scale insulin Monitor blood glucose 4. History of CVA Continue home aspirin. Fall precautions. PT SAJAN galindo provides 24 h supervision FEN Heart healthy diet Electrolytes: Monitor and replete as needed NS at 100 cc/hour Heparin Discharge Planning: Rehab vs HHC with 24hr supervision possible dc in am (1) Rhabdomyolysis Qualifiers: Rhabdomyolysis type: non-traumatic Qualified Code(s): M62.82 - Rhabdomyolysis (2) Urinary tract infection Qualifiers: Urinary tract infection type: site unspecified Hematuria presence: without hematuria Qualified Code(s): N39.0 - Urinary tract infection, site not specified
--- NOTE | 2018-01-28 14:44 | P.DCO ---
- Diagnosis (1) Rhabdomyolysis (2) Urinary tract infection - Physical Therapy Order: Evaluate and treat, Improve ambulation, Strength and gait training - Home Health Nursing Order: Medical education, Medication education-adverse effect - Certification I have seen patient Елена Cummings on 01/28/18. My clinical findings support the need for the requested home health care services because: Limited mobility due to disease progression I certify that my clinical findings support that this patient is homebound because: Unsafe to leave home unassisted, Need for psychosocial assistance (1) Rhabdomyolysis Qualifiers: Rhabdomyolysis type: non-traumatic Qualified Code(s): M62.82 - Rhabdomyolysis (2) Urinary tract infection Qualifiers: Urinary tract infection type: site unspecified Hematuria presence: without hematuria Qualified Code(s): N39.0 - Urinary tract infection, site not specified
[2018-01-28 15:45] LABS: Creatine Kinase 8033 U/L (26-192)
[2018-01-28 16:05] LABS: CKMB Percent 0.3 % (0.0-4.0); Creatine Kinase MB 25.2 ng/mL (0.5-3.6)
[2018-01-28] MEDS: traZODone 50 MG Tablet PO SCH (21:08)
[2018-01-28] MEDS: PROGESTERONE 100 MG PO SCH (21:11)
[2018-01-29] MEDS: Insulin NovoLOG Aspart Correctional Sugar Inj SQ SCH ×5 (04:31→23:58)
[2018-01-29] MEDS: KCL 20 mEq/NACL 0.45% Inj 1,000 ML IV.CONT SCH ×3 (04:31→21:09)
[2018-01-29] MEDS: guaiFENesin 600 MG ER Tablet PO SCH ×3 (04:31→21:08)
[2018-01-29] MEDS: Heparin - SQ 10,000 UNITS/ML Vial SQ SCH ×2 (04:31→13:20)
[2018-01-29 06:17] LABS: Albumin 2.2 g/dL (3.4-5.0); Anion Gap 10 meq/L (5-15); Aspartate Aminotransferase 149 U/L (15-37); Blood Urea Nitrogen 8 mg/dL (7-18); Calcium 8.8 mg/dL (8.5-10.1); Carbon Dioxide 18.4 meq/L (21.0-32.0); Chloride 115 meq/L (98-107); Glomerular Filtration Rate 52 mL/min (>89); Glucose,Random 114 mg/dL (74-106); Potassium 3.9 meq/L (3.5-5.1); Sodium 143 meq/L (136-145)
[2018-01-29 06:19] LABS: Alanine Aminotransferase 128 U/L (10-53)
[2018-01-29 06:34] LABS: Alkaline Phosphatase 54 U/L (45-117); Creatine Kinase 4963 U/L (26-192); Total Protein 5.5 g/dL (6.4-8.2)
[2018-01-29 06:52] LABS: CKMB Percent 0.2 % (0.0-4.0); Creatine Kinase MB 9.8 ng/mL (0.5-3.6)
[2018-01-29] MEDS: Senna/Docusate Sodium 8.6/50 MG Tablet PO SCH ×2 (09:41→21:08)
--- NOTE | 2018-01-29 16:25 | P.PN ---
Subjective Interval history: Follow-up rhabdomyolysis. She is doing okay but still needing IV hydration CK improved down to 5000. Discussed with daughter, patient is constipated will lactulose and Dulcolax suppository scheduled in addition to Bella-Colace. Discussed with nursing Physical Exam Vital signs: Vital Signs 01/28/18 20:00 01/29/18 00:00 01/29/18 04:00 Temperature 98 F 98.1 F 99.7 F H Pulse Rate 96 H 94 H 98 H Respiratory Rate 18 18 18 Blood Pressure 120/65 133/69 110/71 Pulse Oximetry 97 95 95 01/29/18 08:00 01/29/18 12:00 Temperature 97.9 F 97.8 F Pulse Rate 91 H 86 Respiratory Rate 17 18 Blood Pressure 122/64 112/57 L Pulse Oximetry 94 L 95 Intake & Output 01/28/18 01/29/18 01/29/18 18:59 06:59 18:59 Intake Total 1400 / 1400 2220 / 2220 1000 / 1000 Output Total 800 / 800 800 / 800 Balance 600 / 600 1420 / 1420 1000 / 1000 Intake: IV 1000 / 1000 2100 / 2100 1000 / 1000 Potassium Chlor 20 mEq/NACL 0. 1000 / 1000 2000 / 2000 1000 / 1000 45% Inj 1,000 ML @ 125 mls/hr IV.CONT .Q8H [facility] Rx#:[id number] Rocephin Inj 1,000 MG In NS Inj 100 / 100 100 ML @ 200 mls/hr IV.SIG Q24H [facility] Rx#:[id number] Oral 400 / 400 120 / 120 Output: Urine 800 / 800 800 / 800 Other: # Voids 3 # Bowel Movements 0 Narrative: Gen.: No acute distress Cardiovascular: Regular rate and rhythm. No murmurs, rubs or gallops. Respiratory: Lungs clear to auscultation bilaterally. No wheezes or rhonchi. Abdomen: Soft, nontender, nondistended. No peritoneal signs. Musculoskeletal: No gross deformities. No edema. Skin: No obvious rashes or erythema. Neuro: Awake and alert. Right-sided upper and lower extremity residual weakness , right facial droop with expressive aphasia at baseline. - Urinary Catheter Management Indwelling Urethral Catheter Cath placed during this visit: yes Reason for continuing: Hourly intake/output Insertion date: 01/26/18 Insertion time: 00:10 Results - Labs CBC & Chem 7: 01/28/18 05:20 01/29/18 04:26 Laboratory Results - last 24 hr 01/28/18 01/28/18 01/29/18 16:47 19:44 04:26 Sodium 143 Potassium 3.9 Chloride 115 H Carbon Dioxide 18.4 L Anion Gap 10 BUN 8 Creatinine 1.03 H Estimated GFR 52 L POC Glucose 171 H 172 H Random Glucose 114 H Calcium 8.8 Total Bilirubin 0.5 AST 149 H ALT 128 H Alkaline Phosphatase 54 Total Creatine Kinase 4963 H CK-MB (CK-2) 9.8 H CK-MB (CK-2) % 0.2 Total Protein 5.5 L Albumin 2.2 L 01/29/18 01/29/18 07:57 12:33 Sodium Potassium Chloride Carbon Dioxide Anion Gap BUN Creatinine Estimated GFR POC Glucose 113 H 124 H Random Glucose Calcium Total Bilirubin AST ALT Alkaline Phosphatase Total Creatine Kinase CK-MB (CK-2) CK-MB (CK-2) % Total Protein Albumin Assessment and Plan - Assessment (1) Rhabdomyolysis Code(s): M62.82 - Rhabdomyolysis Status: Acute (2) Urinary tract infection Code(s): N39.0 - Urinary tract infection, site not specified Status: Acute - Plan 1. Rhabdomyolysis/acute kidney injury Total creatinine kinase almost 5000 Improving creatinine Aggressive IV fluid hydration Monitor renal function Repeat CK in a.m. 2. Sepsis 2/2 Klebsiella urinary tract infection Rocephin 3. Diabetes mellitus Holding home metformin Sliding-scale insulin Monitor blood glucose 4. History of CVA Continue home aspirin. Fall precautions. PT SAJAN galindo provides 24 h supervision 5. Constipation. Start scheduled lactulose and Dulcolax suppository in addition to Bella-Colace FEN Heart healthy diet Electrolytes: Monitor and replete as needed NS at 100 cc/hour Heparin Discharge Planning: Rehab vs HHC with 24hr supervision possible dc in am (1) Rhabdomyolysis Qualifiers: Rhabdomyolysis type: non-traumatic Qualified Code(s): M62.82 - Rhabdomyolysis (2) Urinary tract infection Qualifiers: Urinary tract infection type: site unspecified Hematuria presence: without hematuria Qualified Code(s): N39.0 - Urinary tract infection, site not specified
[2018-01-29] MEDS: Bisacodyl 10 MG Supp RECTAL SCH (17:24)
[2018-01-29] MEDS: traZODone 50 MG Tablet PO SCH (21:09)
[2018-01-29] MEDS: PROGESTERONE 100 MG PO SCH (23:58)
[2018-01-30] MEDS: Insulin NovoLOG Aspart Correctional Sugar Inj SQ SCH ×5 (02:30→21:13)
[2018-01-30] MEDS: Heparin - SQ 10,000 UNITS/ML Vial SQ SCH ×3 (02:31→23:33)
[2018-01-30 08:12] LABS: Alanine Aminotransferase 122 U/L (10-53); Albumin 2.1 g/dL (3.4-5.0); Anion Gap 10 meq/L (5-15); Aspartate Aminotransferase 116 U/L (15-37); Blood Urea Nitrogen 11 mg/dL (7-18); Calcium 8.7 mg/dL (8.5-10.1); Carbon Dioxide 19.9 meq/L (21.0-32.0); Chloride 114 meq/L (98-107); Glomerular Filtration Rate 51 mL/min (>89); Glucose,Random 107 mg/dL (74-106); Magnesium 2.3 mg/dL (1.5-2.5); Potassium 4.1 meq/L (3.5-5.1); Sodium 144 meq/L (136-145)
[2018-01-30 08:25] LABS: Alkaline Phosphatase 51 U/L (45-117); Creatine Kinase 2446 U/L (26-192); Total Protein 5.7 g/dL (6.4-8.2)
[2018-01-30 09:29] LABS: CKMB Percent 0.3 % (0.0-4.0); Creatine Kinase MB 6.3 ng/mL (0.5-3.6)
[2018-01-30] MEDS: Senna/Docusate Sodium 8.6/50 MG Tablet PO SCH ×2 (09:30→21:14)
[2018-01-30] MEDS: guaiFENesin 600 MG ER Tablet PO SCH ×2 (09:30→21:13)
[2018-01-30] MEDS: Bisacodyl 10 MG Supp RECTAL SCH (09:30)
[2018-01-30] MEDS: Ciprofloxacin 250 MG Tablet PO SCH ×2 (09:31→21:13)
--- NOTE | 2018-01-30 14:51 | P.PN ---
Subjective Interval history: Follow-up rhabdomyolysis. She has no new complaints except weakness. She was on maximum assist earlier when she got up. Her POA states he cannot take her home in this condition. Patient needs rehabilitation Physical Exam Vital signs: Vital Signs 01/29/18 16:00 01/29/18 20:00 01/30/18 00:00 Temperature 98.1 F 97.2 F L 97 F L Pulse Rate 95 H 90 81 Respiratory Rate 19 17 17 Blood Pressure 125/56 L 128/61 122/59 L Pulse Oximetry 95 97 96 01/30/18 04:00 01/30/18 08:00 01/30/18 12:00 Temperature 97.2 F L 97.6 F 97.8 F Pulse Rate 83 76 99 H Respiratory Rate 15 17 18 Blood Pressure 119/59 L 123/58 L 124/74 Pulse Oximetry 95 98 95 Intake & Output 01/29/18 01/30/18 01/30/18 18:59 06:59 18:59 Intake Total 1625 / 1625 1240 / 1240 Output Total 2400 / 2400 1600 / 1600 Balance -775 / -775 -360 / -360 Intake: IV 1000 / 1000 1000 / 1000 Potassium Chlor 20 mEq/NACL 0. 1000 / 1000 1000 / 1000 45% Inj 1,000 ML @ 125 mls/hr IV.CONT .Q8H [facility] Rx#:[id number] Oral 625 / 625 240 / 240 Output: Urine 2400 / 2400 1600 / 1600 Other: # Bowel Movements 2 1 Narrative: Gen.: No acute distress Cardiovascular: Regular rate and rhythm. No murmurs, rubs or gallops. Respiratory: Lungs clear to auscultation bilaterally. No wheezes or rhonchi. Abdomen: Soft, nontender, nondistended. No peritoneal signs. Musculoskeletal: No gross deformities. No edema. Skin: No obvious rashes or erythema. Neuro: Awake and alert. Right-sided upper and lower extremity residual weakness , right facial droop with expressive aphasia at baseline. No significant change from previous - Urinary Catheter Management Indwelling Urethral Catheter Cath placed during this visit: yes Reason for continuing: Hourly intake/output Insertion date: 01/26/18 Insertion time: 00:10 Results - Labs CBC & Chem 7: 01/28/18 05:20 01/30/18 04:19 Laboratory Results - last 24 hr 01/29/18 01/29/18 01/30/18 16:36 21:12 04:19 Sodium 144 Potassium 4.1 Chloride 114 H Carbon Dioxide 19.9 L Anion Gap 10 BUN 11 Creatinine 1.05 H Estimated GFR 51 L POC Glucose 130 H 138 H Random Glucose 107 H Calcium 8.7 Magnesium 2.3 Total Bilirubin 0.3 AST 116 H ALT 122 H Alkaline Phosphatase 51 Total Creatine Kinase 2446 H CK-MB (CK-2) 6.3 H CK-MB (CK-2) % 0.3 Total Protein 5.7 L Albumin 2.1 L 01/30/18 01/30/18 08:03 12:02 Sodium Potassium Chloride Carbon Dioxide Anion Gap BUN Creatinine Estimated GFR POC Glucose 104 188 H Random Glucose Calcium Magnesium Total Bilirubin AST ALT Alkaline Phosphatase Total Creatine Kinase CK-MB (CK-2) CK-MB (CK-2) % Total Protein Albumin Assessment and Plan - Assessment (1) Rhabdomyolysis Code(s): M62.82 - Rhabdomyolysis Status: Acute (2) Urinary tract infection Code(s): N39.0 - Urinary tract infection, site not specified Status: Acute - Plan 1. Rhabdomyolysis/acute kidney injury Improving CK and creatinine Aggressive IV fluid hydration Monitor renal function Repeat CK in a.m. 2. Sepsis 2/2 Klebsiella urinary tract infection Stable switch to p.o. Cipro discontinue Rocephin 3. Diabetes mellitus Holding home metformin Sliding-scale insulin Monitor blood glucose 4. History of CVA Continue home aspirin. Fall precautions. PT SAJAN galindo provides 24 h supervision but at this time she needs rehabilitation 5. Constipation. Improving continue scheduled lactulose and Dulcolax suppository in addition to Bella-Colace FEN Heart healthy diet Electrolytes: Monitor and replete as needed NS at 100 cc/hour Heparin Discharge Planning: Rehab when arranged (1) Rhabdomyolysis Qualifiers: Rhabdomyolysis type: non-traumatic Qualified Code(s): M62.82 - Rhabdomyolysis (2) Urinary tract infection Qualifiers: Urinary tract infection type: site unspecified Hematuria presence: without hematuria Qualified Code(s): N39.0 - Urinary tract infection, site not specified
--- NOTE | 2018-01-30 14:54 | P.DS ---
Date of admission: 01/25/18 22:33 Primary care physician: UNKNOWN Anticipated date of discharge: 01/31/18 Brief History from admission: 77-year-old female with a previous history of CVA, hypertension and diabetes mellitus presents to the emergency department for the evaluation of a fall. Per the patient's family she was unsteady on her feet when going to the bathroom and fell to the ground. 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 The patient is able to answer questions with single words and denies any pain. Denies loss of consciousness associated with the fall. No chest pain or shortness of breath. No abdominal pain. No nausea/vomiting/diarrhea. Residual right-sided upper and lower extremity weakness. The family is concerned about increasing confusion and weakness. Patient denies any dysuria or pelvic pain. No fever/ chills. DS: Diagnosis - Discharge Diagnosis (1) Rhabdomyolysis Status: Acute (2) Urinary tract infection Status: Acute DS: Medications - Discharge Medications Prescriptions: sennosides-docusate sodium [Senna Plus] 1 tab PO BID #60 tab DS: Summary Hospital Course: 1. Rhabdomyolysis/acute kidney injury Improving CK and creatinine Status post IV hydration, patient with adequate oral intake Monitor renal function 2. Sepsis 2/2 Klebsiella urinary tract infection Stable switched to p.o. Cipro discontinue Rocephin 3. Diabetes mellitus Holding home metformin Sliding-scale insulin Monitor blood glucose 4. History of CVA Continue home aspirin. Fall precautions. PT following recommended rehabilitation 5. Constipation. Improving continue scheduled lactulose and Dulcolax suppository in addition to Eblla-Colace FEN Heart healthy diet Electrolytes: Monitor and replete as needed Heparin - Time Spent with Patient Total time spent providing and/or coordinating discharge services: - Quality: VTE Deep Vein Thrombosis/Pulmonary Embolism Present on Admission: No Exam Vital signs: Vital Signs 01/29/18 16:00 01/29/18 20:00 01/30/18 00:00 Temperature 98.1 F 97.2 F L 97 F L Pulse Rate 95 H 90 81 Respiratory Rate 19 17 17 Blood Pressure 125/56 L 128/61 122/59 L Pulse Oximetry 95 97 96 01/30/18 04:00 01/30/18 08:00 01/30/18 12:00 Temperature 97.2 F L 97.6 F 97.8 F Pulse Rate 83 76 99 H Respiratory Rate 15 17 18 Blood Pressure 119/59 L 123/58 L 124/74 Pulse Oximetry 95 98 95 Intake & Output 01/29/18 01/30/18 01/30/18 18:59 06:59 18:59 Intake Total 1625 / 1625 1240 / 1240 Output Total 2400 / 2400 1600 / 1600 Balance -775 / -775 -360 / -360 Intake: IV 1000 / 1000 1000 / 1000 Potassium Chlor 20 mEq/NACL 0. 1000 / 1000 1000 / 1000 45% Inj 1,000 ML @ 125 mls/hr IV.CONT .Q8H [facility] Rx#:[id number] Oral 625 / 625 240 / 240 Output: Urine 2400 / 2400 1600 / 1600 Other: # Bowel Movements 2 1 Narrative: Gen.: No acute distress Cardiovascular: Regular rate and rhythm. No murmurs, rubs or gallops. Respiratory: Lungs clear to auscultation bilaterally. No wheezes or rhonchi. Abdomen: Soft, nontender, nondistended. No peritoneal signs. Musculoskeletal: No gross deformities. No edema. Skin: No obvious rashes or erythema. Neuro: Awake and alert. Right-sided upper and lower extremity residual weakness , right facial droop with expressive aphasia at baseline. Results Procedures completed during hospitalization: none Labs on day of discharge: Labs from last 24 hours 01/30/18 01/30/18 01/30/18 12:02 08:03 04:19 Sodium 144 Potassium 4.1 Chloride 114 H Carbon Dioxide 19.9 L Anion Gap 10 BUN 11 Creatinine 1.05 H Estimated GFR 51 L POC Glucose 188 H 104 Random Glucose 107 H Calcium 8.7 Magnesium 2.3 Total Bilirubin 0.3 AST 116 H ALT 122 H Alkaline Phosphatase 51 Total Creatine Kinase 2446 H CK-MB (CK-2) 6.3 H CK-MB (CK-2) % 0.3 Total Protein 5.7 L Albumin 2.1 L 01/29/18 01/29/18 21:12 16:36 Sodium Potassium Chloride Carbon Dioxide Anion Gap BUN Creatinine Estimated GFR POC Glucose 138 H 130 H Random Glucose Calcium Magnesium Total Bilirubin AST ALT Alkaline Phosphatase Total Creatine Kinase CK-MB (CK-2) CK-MB (CK-2) % Total Protein Albumin - Impressions ITS Impressions Chest X-Ray 01/25/18 20:11 CONCLUSION: No acute cardiopulmonary process. Head CT 01/25/18 20:11 CONCLUSION: 1. No acute abnormality is seen. 2. Large areas of encephalization involving the left temporal, occipital, and parietal lobe. There is also areas of encephalization involving the left basal ganglia and anterior left thalamus from prior infarction. Cervical Spine CT 01/25/18 20:12 CONCLUSION: 1. No acute bony abnormalities seen. 2. Degenerative change. Venous Doppler Study 01/25/18 20:42 CONCLUSION: No DVT. Discharge Plan - Discharge Disposition Patient Disposition: 03 Discharge to SNF - Discharge Condition Condition: Stable - Discharge Order Discharge Orders: Discharge Order (Routine); Ordered 01/30/18 Ordered By: Schuyler Garrett - Physicians Team Primary Care Provider: UNKNOWN, Attending Provider: Schuyler Garrett Other Providers: Glenys,Glenys
[2018-01-30 20:33] LABS: Hepatitis A IgM Antibody Nonreactive (Nonreactive); Hepatitits B Surface Antigen Nonreactive (Nonreactive)
[2018-01-30] MEDS: traZODone 50 MG Tablet PO SCH (21:13)
[2018-01-30] MEDS: PROGESTERONE 100 MG PO SCH (21:14)
[2018-01-31] MEDS: Insulin NovoLOG Aspart Correctional Sugar Inj SQ SCH ×4 (02:12→21:16)
[2018-01-31 07:54] LABS: Alkaline Phosphatase 56 U/L (45-117); Creatine Kinase 999 U/L (26-192); Total Protein 5.8 g/dL (6.4-8.2)
[2018-01-31 08:10] LABS: CKMB Percent 0.6 % (0.0-4.0); Creatine Kinase MB 6.3 ng/mL (0.5-3.6)
[2018-01-31] MEDS: guaiFENesin 600 MG ER Tablet PO SCH ×2 (08:14→21:15)
[2018-01-31] MEDS: Bisacodyl 10 MG Supp RECTAL SCH (08:14)
[2018-01-31] MEDS: Ciprofloxacin 250 MG Tablet PO SCH ×2 (08:14→21:16)
[2018-01-31] MEDS: Senna/Docusate Sodium 8.6/50 MG Tablet PO SCH ×2 (08:15→21:15)
[2018-01-31 08:30] LABS: Alanine Aminotransferase 111 U/L (10-53); Albumin 2.2 g/dL (3.4-5.0); Anion Gap 9 meq/L (5-15); Aspartate Aminotransferase 73 U/L (15-37); Blood Urea Nitrogen 15 mg/dL (7-18); Calcium 8.7 mg/dL (8.5-10.1); Carbon Dioxide 20.8 meq/L (21.0-32.0); Chloride 113 meq/L (98-107); Glomerular Filtration Rate 55 mL/min (>89); Glucose,Random 116 mg/dL (74-106); Potassium 4.3 meq/L (3.5-5.1); Sodium 143 meq/L (136-145)
--- NOTE | 2018-01-31 13:11 | P.PN ---
Subjective Interval history: Follow-up rhabdomyolysis. Patient has no new complaints. Adequate oral intake discussed with nursing. Awaiting SNF acceptance Physical Exam Vital signs: Vital Signs 01/30/18 16:00 01/30/18 20:00 01/31/18 00:00 Temperature 97.5 F L 98 F 98 F Pulse Rate 93 H 95 H 82 Respiratory Rate 18 18 18 Blood Pressure 117/58 L 121/58 L Pulse Oximetry 97 96 97 01/31/18 04:00 01/31/18 08:00 Temperature 97.4 F L 97.5 F L Pulse Rate 82 86 Respiratory Rate 18 17 Blood Pressure 98/55 L 103/56 L Pulse Oximetry 96 95 Intake & Output 01/30/18 01/31/18 01/31/18 18:59 06:59 18:59 Intake Total 800 / 800 240 / 240 240 / 240 Output Total 1999 Balance -1200 / -1200 240 / 240 -1760 / -1760 Intake: Oral 800 / 800 240 / 240 240 / 240 Output: Urine 1999 Other: # Voids 3 # Incontinent Voids 3 3 # Bowel Movements 1 1 Narrative: Gen: No acute distress Cardiovascular: Regular rate and rhythm. No murmurs, rubs or gallops. Respiratory: Lungs clear to auscultation bilaterally. No wheezes or rhonchi. Abdomen: Soft, nontender, nondistended. No peritoneal signs. Musculoskeletal: No gross deformities. No edema. Skin: No obvious rashes or erythema. Neuro: Awake and alert. Right-sided upper and lower extremity residual weakness , right facial droop with expressive aphasia at baseline. - Urinary Catheter Management Indwelling Urethral Catheter Cath placed during this visit: yes Reason for continuing: Not indwelling catheter Insertion date: 01/26/18 Insertion time: 00:10 Results - Labs CBC & Chem 7: 01/28/18 05:20 01/31/18 07:20 Laboratory Results - last 24 hr 01/30/18 01/30/18 01/30/18 14:45 17:38 21:10 Sodium Potassium Chloride Carbon Dioxide Anion Gap BUN Creatinine Estimated GFR POC Glucose 110 135 H Random Glucose Calcium Total Bilirubin AST ALT Alkaline Phosphatase Total Creatine Kinase CK-MB (CK-2) CK-MB (CK-2) % Total Protein Albumin Hepatitis A IgM Ab Nonreactive Hep Bs Antigen Nonreactive Hep B Core IgM Ab Nonreactive Hep C IgG Ab Nonreactive 01/31/18 01/31/18 07:20 07:38 Sodium 143 Potassium 4.3 Chloride 113 H Carbon Dioxide 20.8 L Anion Gap 9 BUN 15 Creatinine 0.99 Estimated GFR 55 L POC Glucose 123 H Random Glucose 116 H Calcium 8.7 Total Bilirubin 0.4 AST 73 H ALT 111 H Alkaline Phosphatase 56 Total Creatine Kinase 999 H CK-MB (CK-2) 6.3 H CK-MB (CK-2) % 0.6 Total Protein 5.8 L Albumin 2.2 L Hepatitis A IgM Ab Hep Bs Antigen Hep B Core IgM Ab Hep C IgG Ab - Procedures none Assessment and Plan - Assessment (1) Rhabdomyolysis Code(s): M62.82 - Rhabdomyolysis Status: Acute (2) Urinary tract infection Code(s): N39.0 - Urinary tract infection, site not specified Status: Acute - Plan 1. Rhabdomyolysis/acute kidney injury Improving CK and creatinine Status post IV hydration, patient with adequate oral intake Monitor renal function 2. Sepsis 2/2 Klebsiella urinary tract infection Stable switched to p.o. Cipro discontinue Rocephin 3. Diabetes mellitus Holding home metformin Sliding-scale insulin Monitor blood glucose 4. History of CVA Continue home aspirin. Fall precautions. PT following recommended rehabilitation 5. Constipation. Improving continue scheduled lactulose and Dulcolax suppository in addition to Bella-Colace FEN Heart healthy diet Electrolytes: Monitor and replete as needed Heparin Discharge Planning: Rehab when arranged (1) Rhabdomyolysis Qualifiers: Rhabdomyolysis type: non-traumatic Qualified Code(s): M62.82 - Rhabdomyolysis (2) Urinary tract infection Qualifiers: Urinary tract infection type: site unspecified Hematuria presence: without hematuria Qualified Code(s): N39.0 - Urinary tract infection, site not specified
[2018-01-31] MEDS: Heparin - SQ 10,000 UNITS/ML Vial SQ SCH (17:49)
[2018-01-31] MEDS: PROGESTERONE 100 MG PO SCH (21:16)
[2018-01-31] MEDS: traZODone 50 MG Tablet PO SCH (21:16)
[2018-02-01] MEDS: Heparin - SQ 10,000 UNITS/ML Vial SQ SCH ×2 (00:31→11:53)
[2018-02-01] MEDS: Insulin NovoLOG Aspart Correctional Sugar Inj SQ SCH ×4 (00:36→11:52)
[2018-02-01] MEDS: Senna/Docusate Sodium 8.6/50 MG Tablet PO SCH (08:55)
[2018-02-01] MEDS: guaiFENesin 600 MG ER Tablet PO SCH (08:55)
[2018-02-01] MEDS: Ciprofloxacin 250 MG Tablet PO SCH (08:56)
[2018-02-01] MEDS: Bisacodyl 10 MG Supp RECTAL SCH (08:58)
== END 2018-02-01 17:05 ==
LOC: NEPE 19:14 → NEDA 22:33 → NEDH 01-26 04:38 → N07 01-26 12:15
PROVIDERS: ADMIT Internal Medicine; ATTEND Internal Medicine
DX: N39.0 Urinary tract infection, site not specified; E11.9 Type 2 diabetes mellitus without complications; K59.00 Constipation, unspecified; I69.392 Facial weakness following cerebral infarction; Z87.891 Personal history of nicotine dependence; I69.320 Aphasia following cerebral infarction; I69.351 Hemiplegia and hemiparesis following cerebral infarction affecting right dominant side; E78.00 Pure hypercholesterolemia, unspecified; R26.81 Unsteadiness on feet; Z79.84 Long term (current) use of oral hypoglycemic drugs; M62.82 Rhabdomyolysis; I10 Essential (primary) hypertension; Z91.81 History of falling; A41.59 Other Gram-negative sepsis; Z79.82 Long term (current) use of aspirin; N17.9 Acute kidney failure, unspecified; B96.1 Klebsiella pneumoniae [K. pneumoniae] as the cause of diseases classified elsewhere

== ENCOUNTER 2018-04-12 12:24 | Inpatient (IN) ==
[2018-04-12 13:20] LABS: Baso # (Auto) 0.1 th/mm3 (0.0-0.2); Baso % (Auto) 0.5 % (0.0-2.0); Eos % (Auto) 0.2 % (0.0-4.0); Hematocrit 40.4 % (35.0-46.0); Hemoglobin 13.5 gm/dL (11.6-15.3); Lymph % (Auto) 18.8 % (9.0-44.0); Mean Corpuscular HGB Conc 33.5 % (32.0-36.0); Mean Corpuscular Hemoglobin 29.4 pg (27.0-34.0); Mean Corpuscular Volume 87.9 fL (80.0-100.0); Mean Platelet Volume 10.3 fL (7.0-11.0); Mono # (Auto) 0.8 th/mm3 (0.0-0.9); Mono % (Auto) 7.9 % (0.0-8.0); Neut # (Auto) 7.8 th/mm3 (1.8-7.7); Neut % (Auto) 72.6 % (16.0-70.0); Platelet Count 189 th/mm3 (150-450); Red Cell Distribution Width 13.9 % (11.6-17.2); White Blood Count 10.7 th/mm3 (4.0-11.0)
[2018-04-12 13:28] LABS: Activated Partial Thrombo Time 22.2 sec (24.3-30.1); Prothrombin Time 10.4 sec (9.8-11.6)
[2018-04-12 13:42] LABS: Alanine Aminotransferase 99 U/L (10-53); Alkaline Phosphatase 66 U/L (45-117); Anion Gap 15 meq/L (5-15); Aspartate Aminotransferase 160 U/L (15-37); Blood Urea Nitrogen 15 mg/dL (7-18); Calcium 9.2 mg/dL (8.5-10.1); Carbon Dioxide 24.1 meq/L (21.0-32.0); Chloride 98 meq/L (98-107); Glomerular Filtration Rate 27 mL/min (>89); Glucose,Random 183 mg/dL (74-106); Sodium 137 meq/L (136-145); Total Protein 7.2 g/dL (6.4-8.2); Troponin I 0.03 ng/mL (0.02-0.05)
[2018-04-12 13:45] LABS: Potassium 2.3 meq/L (3.5-5.1)
[2018-04-12 13:45] LABS: Amorphous Sediment,Urine Many /hpf; Bacteria,Urine Occasional /hpf; Bilirubin,Urine Negative (Negative); Color,Urine Yellow (Yellw/Straw); Glucose,Urine (UA) Negative (Negative); Hyaline Casts,Urine 2 /lpf (0-3); Leukocyte Esterase,Urine Negative (Negative); Mucus,Urine Few /lpf (Occasional); Nitrite,Urine Negative (Negative); Specific Gravity,Urine 1.011 (1.002-1.035); Squamous Epithelial Cell,Urine 1 /hpf (0-5)
[2018-04-12 13:46] LABS: Clarity,Urine Hazy (Clear)
--- NOTE | 2018-04-12 13:47 | ED ---
HPI General Chief Complaint: Altered Mental Status Stated Complaint: AMS Time Seen by Provider: 04/12/18 12:36 History of Present Illness HPI narrative: Patient is 77-year-old female with history of stroke with weakness on the right side presented from home for slurred speech and left- sided weakness for 2 days Patient is oriented to her name only noted historian. The right side is weaker than left. No obvious slurred speech no facial droop. As per EMS she has healed weakness for 2 days. Patient's friend arrived and stated that she is weaker than usually and most likely she had another stroke on the right side. Patient is out of window treatment, she is not a TPA candidate. Patient is mostly bedridden barely is able to ambulate with walker. 1620: Patient feels better. Same neurologic deficit as before. No facial droop. No slurred speech. Patient has rhabdomyolysis treated with IV fluids. Hypokalemia potassium replaced. Case discussed with Dr. Wagner for admission, accepted on to his service. MD complaint: altered mental status, confusion, decreased responsiveness and weakness Related Data Home Medications Medication Instructions Recorded Confirmed aspirin [Aspir-81] 81 mg PO DAILY 01/25/18 04/12/18 cholecalciferol (vitamin D3) 5,000 unit PO DAILY 01/25/18 04/12/18 [Vitamin D3] progesterone micronized 100 mg PO HS 01/25/18 04/12/18 trazodone 50 mg PO HS 01/25/18 04/12/18 Allergies Allergy/AdvReac Type Severity Reaction Status Date / Time No Known Allergies Allergy Unverified 01/25/18 19:26 Review of Systems ROS: all other systems reviewed are negative Neurologic Comments: Weakness PMFSH Family History Family History Other No family history of cardiac disease Social History Social History Substance History: Unable to Obtain Second Hand Smoke Exposure: Yes Smoking Status: Unknown if ever smoked How Often Do You Have a Drink Containing Alcohol: Unable to Obtain Recent Travel in [facility] within the Last 8 Weeks: No Recent Out of Country Travel within the Last 8 Weeks: No Immunization History Tetanus Immunization: Unsure Exam Narrative Exam Narrative: GENERAL: [77-year-old female-] SKIN: Focused skin assessment warm/dry. HEAD: Atraumatic. Normocephalic. EYES: Pupils equal and round. No scleral icterus. No injection or drainage. ENT: No nasal bleeding or discharge. Mucous membranes pink and moist. NECK: Trachea midline. No JVD. CARDIOVASCULAR: Regular rate and rhythm. No murmur appreciated. RESPIRATORY: No accessory muscle use. Clear to auscultation. Breath sounds equal bilaterally. GASTROINTESTINAL: Abdomen soft, non-tender, nondistended. Hepatic and splenic margins not palpable. MUSCULOSKELETAL: No obvious deformities. No clubbing. No cyanosis. No edema. NEUROLOGICAL: Awake and alert. No obvious cranial nerve deficits. Motor grossly within normal limits. Normal speech. PSYCHIATRIC: AAOx1, chronic neurologic deficit? Course Initial Documented Vital Signs Temperature 99.4 F 04/12/18 12:32 Pulse Rate 102 H 04/12/18 12:32 Respiratory Rate 18 04/12/18 12:32 Blood Pressure 118/75 04/12/18 12:32 Pulse Oximetry 96 04/12/18 12:32 Last Documented Vital Signs Temperature 99.4 F 04/12/18 12:32 Pulse Rate 87 04/12/18 15:06 Respiratory Rate 18 04/12/18 15:06 Blood Pressure 105/64 04/12/18 15:06 Pulse Oximetry 100 04/12/18 15:06 Medical Decision Making [facility] Narrative Medical decision making narrative: Patient presented for lethargy, mental status worsening. She has no complaints. Stroke workup and septic workup ordered. IV fluids given Reevaluation pending Medical Screen Exam Complete: Yes Emergency Medical Condition: Yes Differential Diagnosis Differential Diagnosis: Altered mental status Rule out CVA Rule out pneumonia and UTI Lab Data Result diagrams: 04/12/18 13:10 04/12/18 13:10 Lab Results 04/12/18 04/12/18 04/12/18 Range/Units 13:09 13:10 13:10 WBC 10.7 (4.0-11.0) th/mm3 RBC 4.60 (4.00-5.30) mil/mm3 Hgb 13.5 (11.6-15.3) gm/dL Hct 40.4 (35.0-46.0) % MCV 87.9 (80.0-100.0) fL MCH 29.4 (27.0-34.0) pg MCHC 33.5 (32.0-36.0) % RDW 13.9 (11.6-17.2) % Plt Count 189 (150-450) th/mm3 MPV 10.3 (7.0-11.0) fL Neut % (Auto) 72.6 H (16.0-70.0) % Lymph % (Auto) 18.8 (9.0-44.0) % [place] % (Auto) 7.9 (0.0-8.0) % Eos % (Auto) 0.2 (0.0-4.0) % Baso % (Auto) 0.5 (0.0-2.0) % Neut # (Auto) 7.8 H (1.8-7.7) th/mm3 Lymph # (Auto) 2.0 (1.0-4.8) th/mm3 [place] # (Auto) 0.8 (0.0-0.9) th/mm3 Eos # (Auto) 0.0 (0.0-0.4) th/mm3 Baso # (Auto) 0.1 (0.0-0.2) th/mm3 WBC Differential . Differential Comment Auto diff final PT 10.4 (9.8-11.6) sec INR 1.0 Ratio APTT 22.2 L (24.3-30.1) sec Sodium (136-145) meq/L Potassium (3.5-5.1) meq/L Chloride (98-107) meq/L Carbon Dioxide (21.0-32.0) meq/L Anion Gap (5-15) meq/L BUN (7-18) mg/dL Creatinine (0.50-1.00) mg/dL Estimated GFR (>89) mL/min POC Glucose 172 H (68-110) mg/dl Random Glucose (74-106) mg/dL Lactic Acid (0.4-2.0) mmol/L Calcium (8.5-10.1) mg/dL Total Bilirubin (0.2-1.0) mg/dL AST (15-37) U/L ALT (10-53) U/L Alkaline Phosphatase (45-117) U/L Total Creatine Kinase (26-192) U/L CK-MB (CK-2) (0.5-3.6) ng/mL CK-MB (CK-2) % (0.0-4.0) % Troponin I (0.02-0.05) ng/mL Total Protein (6.4-8.2) g/dL Albumin (3.4-5.0) g/dL Urine Color (Yellw/Straw) Urine Clarity (Clear) Urine pH (5.0-8.5) Ur Specific [place] (1.002-1.035) Urine Protein (Neg-Trace) mg/dL Urine Glucose (UA) (Negative) mg/dL Urine Ketones (Negative) mg/dL Urine Occult Blood (Negative) Urine Nitrate (Negative) Urine Bilirubin (Negative) Urine Urobilinogen (Less than 2) mg/dL Ur Leukocyte Esterase (Negative) Urine RBC (0-3) /hpf Urine WBC (0-5) /hpf Ur Squamous Epith Cells (0-5) /hpf Amorphous Sediment (None) /hpf Urine Bacteria (None) /hpf Hyaline Casts (0-3) /lpf Urine Mucus (Occasional) /lpf Micro UA Comment Ur Microscopic Review Urine Culture Comments 04/12/18 04/12/18 04/12/18 Range/Units 13:10 13:10 13:10 WBC (4.0-11.0) th/mm3 RBC (4.00-5.30) mil/mm3 Hgb (11.6-15.3) gm/dL Hct (35.0-46.0) % MCV (80.0-100.0) fL MCH (27.0-34.0) pg MCHC (32.0-36.0) % RDW (11.6-17.2) % Plt Count (150-450) th/mm3 MPV (7.0-11.0) fL Neut % (Auto) (16.0-70.0) % Lymph % (Auto) (9.0-44.0) % [place] % (Auto) (0.0-8.0) % Eos % (Auto) (0.0-4.0) % Baso % (Auto) (0.0-2.0) % Neut # (Auto) (1.8-7.7) th/mm3 Lymph # (Auto) (1.0-4.8) th/mm3 [place] # (Auto) (0.0-0.9) th/mm3 Eos # (Auto) (0.0-0.4) th/mm3 Baso # (Auto) (0.0-0.2) th/mm3 WBC Differential Differential Comment PT (9.8-11.6) sec INR Ratio APTT (24.3-30.1) sec Sodium 137 (136-145) meq/L Potassium 2.3 L* (3.5-5.1) meq/L Chloride 98 (98-107) meq/L Carbon Dioxide 24.1 (21.0-32.0) meq/L Anion Gap 15 (5-15) meq/L BUN 15 (7-18) mg/dL Creatinine 1.85 H (0.50-1.00) mg/dL Estimated GFR 27 L (>89) mL/min POC Glucose (68-110) mg/dl Random Glucose 183 H (74-106) mg/dL Lactic Acid 3.9 H (0.4-2.0) mmol/L Calcium 9.2 (8.5-10.1) mg/dL Total Bilirubin 0.9 (0.2-1.0) mg/dL AST 160 H (15-37) U/L ALT 99 H (10-53) U/L Alkaline Phosphatase 66 (45-117) U/L Total Creatine Kinase 6644 H (26-192) U/L CK-MB (CK-2) 24.7 H (0.5-3.6) ng/mL CK-MB (CK-2) % 0.4 (0.0-4.0) % Troponin I 0.03 (0.02-0.05) ng/mL Total Protein 7.2 (6.4-8.2) g/dL Albumin 3.0 L (3.4-5.0) g/dL Urine Color (Yellw/Straw) Urine Clarity (Clear) Urine pH (5.0-8.5) Ur Specific [place] (1.002-1.035) Urine Protein (Neg-Trace) mg/dL Urine Glucose (UA) (Negative) mg/dL Urine Ketones (Negative) mg/dL Urine Occult Blood (Negative) Urine Nitrate (Negative) Urine Bilirubin (Negative) Urine Urobilinogen (Less than 2) mg/dL Ur Leukocyte Esterase (Negative) Urine RBC (0-3) /hpf Urine WBC (0-5) /hpf Ur Squamous Epith Cells (0-5) /hpf Amorphous Sediment (None) /hpf Urine Bacteria (None) /hpf Hyaline Casts (0-3) /lpf Urine Mucus (Occasional) /lpf Micro UA Comment Ur Microscopic Review Urine Culture Comments 04/12/18 04/12/18 Range/Units 13:25 15:30 WBC (4.0-11.0) th/mm3 RBC (4.00-5.30) mil/mm3 Hgb (11.6-15.3) gm/dL Hct (35.0-46.0) % MCV (80.0-100.0) fL MCH (27.0-34.0) pg MCHC (32.0-36.0) % RDW (11.6-17.2) % Plt Count (150-450) th/mm3 MPV (7.0-11.0) fL Neut % (Auto) (16.0-70.0) % Lymph % (Auto) (9.0-44.0) % [place] % (Auto) (0.0-8.0) % Eos % (Auto) (0.0-4.0) % Baso % (Auto) (0.0-2.0) % Neut # (Auto) (1.8-7.7) th/mm3 Lymph # (Auto) (1.0-4.8) th/mm3 [place] # (Auto) (0.0-0.9) th/mm3 Eos # (Auto) (0.0-0.4) th/mm3 Baso # (Auto) (0.0-0.2) th/mm3 WBC Differential Differential Comment PT (9.8-11.6) sec INR Ratio APTT (24.3-30.1) sec Sodium (136-145) meq/L Potassium (3.5-5.1) meq/L Chloride (98-107) meq/L Carbon Dioxide (21.0-32.0) meq/L Anion Gap (5-15) meq/L BUN (7-18) mg/dL Creatinine (0.50-1.00) mg/dL Estimated GFR (>89) mL/min POC Glucose (68-110) mg/dl Random Glucose (74-106) mg/dL Lactic Acid 2.9 H (0.4-2.0) mmol/L Calcium (8.5-10.1) mg/dL Total Bilirubin (0.2-1.0) mg/dL AST (15-37) U/L ALT (10-53) U/L Alkaline Phosphatase (45-117) U/L Total Creatine Kinase (26-192) U/L CK-MB (CK-2) (0.5-3.6) ng/mL CK-MB (CK-2) % (0.0-4.0) % Troponin I (0.02-0.05) ng/mL Total Protein (6.4-8.2) g/dL Albumin (3.4-5.0) g/dL Urine Color Yellow (Yellw/Straw) Urine Clarity Hazy H (Clear) Urine pH 6.0 (5.0-8.5) Ur Specific [place] 1.011 (1.002-1.035) Urine Protein 100 H (Neg-Trace) mg/dL Urine Glucose (UA) Negative (Negative) mg/dL Urine Ketones Negative (Negative) mg/dL Urine Occult Blood Large H (Negative) Urine Nitrate Negative (Negative) Urine Bilirubin Negative (Negative) Urine Urobilinogen 2.0 H (Less than 2) mg/dL Ur Leukocyte Esterase Negative (Negative) Urine RBC 4 H (0-3) /hpf Urine WBC Less than 1 (0-5) /hpf Ur Squamous Epith Cells 1 (0-5) /hpf Amorphous Sediment Many H (None) /hpf Urine Bacteria Occasional H (None) /hpf Hyaline Casts 2 (0-3) /lpf Urine Mucus Few H (Occasional) /lpf Micro UA Comment Cath-culture ind Ur Microscopic Review Not Reportable Urine Culture Comments Cath-cult indicated Imaging Data Radiologist's impression: Chest X-Ray 04/12/18 13:00 CONCLUSION: 1. No acute abnormality or significant interval change. Head CT 04/12/18 13:00 CONCLUSION: 1. No acute intracranial abnormality or significant interval change. 2. 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 . Discharge Plan Discharge Details Discharge Comment: Patient is admitted to medicine Physicians Team ED Provider: Alf Stern Primary Care Provider: UNKNOWN, Rxs /Orders / Referrals /Forms Prescriptions: No Action trazodone 50 mg Tablet 50 mg PO HS RF: 0 aspirin [Aspir-81] 81 mg Tablet,Delayed Release (Dr/Ec) 81 mg PO DAILY RF: 0 progesterone micronized 100 mg Capsule 100 mg PO HS RF: 0 cholecalciferol (vitamin D3) [Vitamin D3] 5,000 unit Tablet 5,000 unit PO DAILY RF: 0 Discharge Interventions Interventions: Vital Signs Last Done: 04/12/18 16:27 Status ED Status: Admitted Patient
[2018-04-12] MEDS ORDERED: Potassium Chlor 40 mEq Premix 40 MEQ/100 ML PIGGYBACK IV.SIG ONE (13:58)
--- NOTE | 2018-04-12 13:59 | XR ---
EXAM DATE: 04/12/2018 1:56 PM EDT AGE/SEX: 77 years / Female INDICATIONS: Chest discomfort. CLINICAL DATA: This is the patient's initial encounter. Patient reports that signs and symptoms have been present for 1 day and indicates a pain score of 2/10. MEDICAL/SURGICAL HISTORY: Hypertension. Diabetes. Stroke. None. COMPARISON: [facility] [place], CHEST 1V SINGLE AP, 01/25/2018. . FINDINGS: No significant new focal pleural or parenchymal opacities. The cardiomediastinal contours are unrema rkable. Osseous structures are intact. CONCLUSION: 1. No acute abnormality or significant interval change. Electronically signed by: Anand Matthews MD 04/12/2018 1:57 PM EDT
[2018-04-12] MEDS: Potassium Chlor 10 mEq Premix 10 MEQ/100 ML PIGGYBACK IV.SIG SCH ×4 (14:20→18:35)
[2018-04-12] MEDS: Sod Chloride 0.9% Inj 1,000 ML IV.CONT SCH ×2 (14:21→22:37)
--- NOTE | 2018-04-12 14:54 | CT ---
EXAM DATE: 04/12/2018 2:50 PM EDT AGE/SEX: 77 years / Female INDICATIONS: Left sided facial droop. Left sided weakness and expressive aphasia. CLINICAL DATA: This is the patient's initial encounter. Patient reports that signs and symptoms have been present for 2 days and indicates a pain score of 0/10. MEDICAL/SURGICAL HISTORY: Diabetes. Hypertension. Stroke. Hysterectomy. RADIATION DOSE: 56.35 CTDI (mGy) COMPARISON: [facility] [place] HEAD [place]/O [place], 01/25/2018. . TECHNIQUE: CT of the head without contrast. Using automated exposure control and adjustment of the mA and/or kV according to patient size, radiation dose was kept as low as reasonably achievable to ob tain optimal diagnostic quality images. DICOM format image data is available electronically for revi ew and comparison. FINDINGS: Cerebrum: Redemonstration of encephalomalacia defect in the left parietal, temporal and occipital lo bes as well as the basal ganglia. Moderate diffuse cerebral atrophy. The ventricles are normal for de gree of atrophy. No evidence of midline shift, mass lesion, hemorrhage or acute infarction. No extra axial fluid collections are seen. Posterior Fossa: The cerebellum and brainstem are intact. The 4th ventricle is midline. The cerebe llopontine angle is unremarkable. Extracranial: The visualized portion of the orbits is intact. Skull: The calvaria is intact. No evidence of skull fracture. CONCLUSION: 1. No acute intracranial abnormality or significant interval change. 2. 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 . Electronically signed by: Anand Matthews MD 04/12/2018 2:53 PM EDT
[2018-04-12 15:32] LABS: CKMB Percent 0.4 % (0.0-4.0); Creatine Kinase MB 24.7 ng/mL (0.5-3.6)
--- NOTE | 2018-04-12 17:19 | P.HPIM ---
History of Present Illness Service: [facility] Primary Care Physician: UNKNOWN Chief Complaint: weakness History of Present Illness: Mrs. Cummings is a 77 yo F with PMH CVA, HTN, hyperlipidemia who presented to [place] in the company of her boyfriend for evaluation of recent onset of weakness. Patient's partner provided history due to patient's CVA and expressive aphasia. Patient's boyfriend had difficulty lifting her off of the couch yesterday; she was able to barely stand up. She has since worsened and been unable to walk. Due to worsening of weakness and inability to ambulate, he called EMS this morning for her. She has not had any changes in her speech, which has been poor since prior CVA ~1.5 years ago. patient has had chronic weakness which is worse in her right extremities. Patient has also been not eating for the past ~2 days. He also reports that patient has generally been declining for the past month and has not been receiving home health care which she received initially after last hospitalization. Patient has had chronic cough; no recent changes. No reported chest pain, changes in bowel movements/urination, or other concerns. PMH- CVA, HTN, hyperlipidemia PSH- Hysterectomy SH- tobacco abuse, prior alcohol abuse FH- ? [facility] Inpatient Certification: I certify that the inpatient services were ordered in accordance with Medicare regulations governing the order. This includes certification that hospital inpatient services are reasonable and necessary and in the case of services not specified as inpatient-only under 42 CFR 419.22(n), that they are appropriately provided as inpatient services in accordance to with the 2-midnight benchmark under 43 CFR 412.3(e) Review of Systems unobtainable due to mental condition, other (patient with difficulty expressing answers ) ON LICENSE OF [facility] - History History Provided By: Director Of Content And Programming / EMT - Medical History Medical History: Medical History (Last Reviewed 01/28/18 @ 09:03 by Roby Lyn) History of hysterectomy (Acute) Diabetes mellitus High cholesterol Hypertension Stroke - Family History Family History: Family History (Last Updated 01/26/18 @ 00:16 by Monika Boland MD) Other No family history of cardiac disease - Tobacco History Second Hand Smoke Exposure: Yes Smoking Status: Unknown if ever smoked - Alcohol History How Often Do You Have a Drink Containing Alcohol: Unable to Obtain - Substance Use History Substance History: Unable to Obtain - Travel History Recent Travel in the [place] Within the Last 8 Weeks: No Recent Travel Out of the Country Within the Last 8 Weeks: No - Immunization History Tetanus Immunization: Unsure Medications and Allergies Active Medications: Active Medications Sodium Chloride (Ns Inj) 1,000 mls @ 125 mls/hr IV.CONT .Q8H SUSY Last Admin: 04/12/18 14:21 Dose: 125 mls/hr Potassium Chloride (Kcl 10 Meq Premix Inj) 10 meq in 100 mls @ 100 mls/hr IV.SIG Q1H SUSY Stop: 04/12/18 18:14 Last Admin: 04/12/18 16:23 Dose: 100 mls/hr Sodium Chloride (Ns Flush) 2 ml IV.FLUSH PRN PRN PRN Reason: FLUSH AFTER USING IV ACCESS Allergies Allergy/AdvReac Type Severity Reaction Status Date / Time No Known Allergies Allergy Unverified 01/25/18 19:26 Home Medications Medication Instructions Recorded Confirmed Type aspirin [Aspir-81] 81 mg PO DAILY 01/25/18 04/12/18 History cholecalciferol (vitamin D3) 5,000 unit PO DAILY 01/25/18 04/12/18 History [Vitamin D3] progesterone micronized 100 mg PO HS 01/25/18 04/12/18 History trazodone 50 mg PO HS 01/25/18 04/12/18 History Exam Vital signs: Vital Signs 04/12/18 12:32 04/12/18 13:09 04/12/18 14:22 Temperature 99.4 F Pulse Rate 102 H 90 Respiratory Rate 18 17 Blood Pressure 118/75 107/64 Pulse Oximetry 96 96 98 04/12/18 15:06 04/12/18 16:27 Temperature Pulse Rate 87 92 H Respiratory Rate 18 24 Blood Pressure 105/64 110/54 L Pulse Oximetry 100 100 Intake & Output 04/11/18 04/12/18 04/12/18 18:59 06:59 18:59 Intake Total 100 / 100 Balance 100 / 100 Weight 81.647 kg Intake: IV 100 / 100 KCl 10 mEq Premix Inj 10 meq In 100 / 100 100 ml @ 100 mls/hr IV.SIG Q1H SUSY Rx#:[id number] Narrative: GENERAL: No acute distress SKIN: warm/dry. HEAD: Atraumatic. Normocephalic. EYES: PERRLA, EOM I. ENT: Mucous membranes pink and moist. NECK: No JVD. No appreciated lymphadenopathy CARDIOVASCULAR: Regular rate and rhythm without murmurs. RESPIRATORY: CTAB; normal rate GASTROINTESTINAL: Abdomen soft, non-tender, nondistended. MUSCULOSKELETAL: Bilateral calf pain; RLE asymmetrically larger. Some right ankle and knee pain also NEUROLOGICAL: Awake and alert. CN- symmetrical smile; right facial droop. expressive aphasia. Bilateral upper and lower extremity weakness. Patient w/ 4/ 5 strength in upper and lower R extremity; asymmetrically weaker in comparison to left PSYCHIATRIC: alert and responsive to questions with difficult speech; orientation difficult to assess. No appreciable anxiety Results - Labs CBC & Chem 7: 04/12/18 13:10 04/12/18 20:00 Labs: Short CBC 04/12/18 Range/Units 13:10 WBC 10.7 (4.0-11.0) th/mm3 Hgb 13.5 (11.6-15.3) gm/dL Hct 40.4 (35.0-46.0) % Plt Count 189 (150-450) th/mm3 BMP 04/12/18 13:10 Sodium 137 Potassium 2.3 L* Chloride 98 Carbon Dioxide 24.1 BUN 15 Creatinine 1.85 H Calcium 9.2 Cardiac Enzymes 04/12/18 04/12/18 Range/Units 13:10 13:10 Total Creatine Kinase 6644 H (26-192) U/L CK-MB (CK-2) 24.7 H (0.5-3.6) ng/mL Troponin I 0.03 (0.02-0.05) ng/mL Liver Function 04/12/18 Range/Units 13:10 Total Bilirubin 0.9 (0.2-1.0) mg/dL AST 160 H (15-37) U/L ALT 99 H (10-53) U/L Alkaline Phosphatase 66 (45-117) U/L Albumin 3.0 L (3.4-5.0) g/dL Urine 04/12/18 Range/Units 13:25 Urine Color Yellow (Yellw/Straw) Urine Clarity Hazy H (Clear) Urine pH 6.0 (5.0-8.5) Ur Specific [place] 1.011 (1.002-1.035) Urine Protein 100 H (Neg-Trace) mg/dL Urine Glucose (UA) Negative (Negative) mg/dL - Imaging Impressions Chest X-Ray 04/12/18 13:00 CONCLUSION: 1. No acute abnormality or significant interval change. Head CT 04/12/18 13:00 CONCLUSION: 1. No acute intracranial abnormality or significant interval change. 2. 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 . Caprini VTE Risk Assessment Caprini VTE Risk Assessment: Moderate/High Risk (score >= 2) Caprini Risk Assessment Model: Point Value = 1 Point Value = 2 Point Value = 3 Point Value = 5 Age 41-60 Minor surgery BMI > 25 kg/m2 Swollen legs Varicose veins or History of unexplained or recurrent spontaneous Oral contraceptives or hormone replacement Sepsis (< 1 month) Serious lung disease, including pneumonia (< 1 month) Abnormal pulmonary function Acute myocardial infarction Congestive heart failure (< 1 month) History of inflammatory bowel disease Medical patient at bed rest Age 61-74 Arthroscopic surgery Major open surgery (> 45 min) Laparoscopic surgery (> 45 min) Malignancy Confined to bed (> 72 hours) Immobilizing plaster cast Central venous access Age >= 75 History of VTE Family history of VTE Factor V Leiden Prothrombin [id number] Lupus anticoagulant Anticardiolipin antibodies Elevated serum homocysteine Heparin-induced thrombocytopenia Other congenital or acquired thrombophilia Stroke (< 1 month) Elective arthroplasty Hip, pelvis, or leg fracture Acute spinal cord injury (< 1 month) Prophylaxis Regimen: Total Risk Factor Score Risk Level Prophylaxis Regimen 0-1 Low Early ambulation 2 Moderate Order ONE of the following: *Sequential Compression Device (SCD) *Heparin 5000 units SQ BID 3-4 Higher Order ONE of the following medications: *Heparin 5000 units SQ TID *Enoxaparin/Lovenox 40 mg SQ daily (WT < 150 kg, CrCl > 30 mL/min) *Enoxaparin/Lovenox 30 mg SQ daily (WT < 150 kg, CrCl > 10-29 mL/min) *Enoxaparin/Lovenox 30 mg SQ BID (WT < 150 kg, CrCl > 30 mL/min) AND/OR *Sequential Compression Device (SCD) 5 or more Highest Order ONE of the following medications: *Heparin 5000 units SQ TID (Preferred with Epidurals) *Enoxaparin/Lovenox 40 mg SQ daily (WT < 150 kg, CrCl > 30 mL/min) *Enoxaparin/Lovenox 30 mg SQ daily (WT < 150 kg, CrCl > 10-29 mL/min) *Enoxaparin/Lovenox 30 mg SQ BID (WT < 150 kg, CrCl > 30 mL/min) AND *Sequential Compression Device (SCD) Assessment and Plan - Plan Mrs. Cummings is a 77 yo F with: Weakness Impression: PMH CVA and prior rhabdomyolysis. 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 Some pain on exam of lower extremities may also contribute to seeming weakness Head CT negative -Will treat hypokalemia and rhabdomyolysis -Will evaluate for new CVA -MRI, Carotid US, echocardiogram -ST/PT/OT -DVT PPX -ASA -BP monitoring -SS insulin -Check Lipid profile, A1C -Will check TSH, B12 -Will check XR of lower R foot and knee due to pain -Will check Doppler US of RLE due to pain CYRUS/Rhabdomyolysis Impression: CK >6K on admission; Cr 1.6 (baseline 1) -Will continue IV F -125ml/hr in ED -Will give an additional 1L bolus and trend Cr/CK -Will monitor urine output Hypokalemia Impression: K 2.3 on admission. No known GI loss of K; possible nutritional deficiency EKG on admission w/o EKG signs -Will replete K -s/p IV repletion in ED -Will repeat K -Will place on telemetry -Will check Mg DM Impression: Normal blood glucose on admission; per EMR on Metformin at home -Will give SS Novolog during hospitalization DVT RLE with DVT on Doppler US -Will start Xarelto 15mg BID Case management DVT PPX -Xarelto -SCD's Code Status: Full code until status clarified
[2018-04-12] MEDS ORDERED: Acetaminophen 325 MG Tablet PO PRN (17:35)
[2018-04-12] MEDS ORDERED: Sod Chloride 0.9% Inj 1,000 ML IV.SIG SCH (17:41)
[2018-04-12] MEDS ORDERED: Dextrose 50% in Water 50 ML Vial IV.PUSH PRN (17:44)
[2018-04-12] MEDS ORDERED: Aspirin 325 MG Tablet PO SCH (18:00)
--- NOTE | 2018-04-12 19:25 | US ---
EXAM DATE: 04/12/2018 7:13 PM EDT AGE/SEX: 77 years / Female INDICATIONS: Bilateral leg pain. CLINICAL DATA: This is the patient's initial encounter. Patient reports that signs and symptoms have been present for 1 day and indicates a pain score of 2/10. MEDICAL/SURGICAL HISTORY: Hypercholesterolemia. Hypertension. Diabetes. Stroke. Hysterectomy. COMPARISON: [facility] [place] VENOUS DOPPLER LEG RIGHT, 01/25/2018. . TECHNIQUE: Venous ultrasound of both lower extremities was performed from the inguinal ligament to t he proximal calf. Real-time, color Doppler and spectral tracing, compression and augmentation techni ques were used. FINDINGS: Right Leg: The right superficial femoral vein and popliteal vein is noncompressible and there is destiny e echogenic thrombus seen within the lumen of the proximal superficial femoral vein with some flow, b ut no augmentation. Flow seen in the popliteal without augmentation. There is also absent flow and ec hogenic thrombus in the posterior tibial vein. Left Leg: Normal compression of the deep venous system from the inguinal region to the proximal calf . No echogenic clot is seen. Normal response of the venous system to augmentation and respiration. Other: None. CONCLUSION: 1. Study is positive for deep venous thrombosis on the right side in the calf and proximal thigh. Electronically signed by: Vel Chanel MD 04/12/2018 7:24 PM EDT
[2018-04-12] MEDS: traZODone 50 MG Tablet PO SCH (20:26)
[2018-04-12] MEDS: Insulin NovoLOG Aspart Correctional Sugar Inj SQ SCH (20:26)
[2018-04-12] MEDS: Senna/Docusate Sodium 8.6/50 MG Tablet PO SCH (20:26)
--- NOTE | 2018-04-12 20:39 | US ---
EXAM DATE: 04/12/2018 7:20 PM EDT AGE/SEX: 77 years / Female INDICATIONS: Slurred speech. CLINICAL DATA: This is the patient's initial encounter. Patient reports that signs and symptoms have been present for 1 day and indicates a pain score of 0/10. MEDICAL/SURGICAL HISTORY: Hypercholesterolemia. Hypertension. Diabetes. Stroke. Hysterectomy. COMPARISON: [facility] [place], MRA CAROTIDS W CONTRAST, 10/02/2016. [facility] [place], MRI BRAIN W/O CONTRAST, 10/02/2016. [facility], CT HEAD W/O CONTRAST, 04/12/2018. . VELOCITY PARAMETERS: ICA/CCA Ratio: Right 1.9 , Left UTO ICA: Right 112.9 cm/sec, Left UTO cm/sec CCA: Right 67.2 cm/sec, Left 61.0 cm/sec ECA: Right 60.7 cm/sec, Left 74.6 cm/sec Vertebral: Right 40.0 cm/sec antegrade, Left UTO cm/sec FINDINGS: Right Carotid: Moderate nonshadowing arteriosclerotic plaque is visualized.The waveforms are within normal limits. Left Carotid: The patient has known occlusion of the left internal carotid artery from origin throug h skull base. Other: None. CONCLUSION: 1. Right Internal Carotid Artery: Findings indicate <50% stenosis. 2. 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 Electronically signed by: Vel Chanel MD 04/12/2018 8:38 PM EDT
[2018-04-12 21:31] LABS: Calcium 8.5 mg/dL (8.5-10.1); Carbon Dioxide 29.5 meq/L (21.0-32.0); Magnesium 1.9 mg/dL (1.5-2.5); Thyroid Stimulating Hormone 2.29 uIU/mL (0.358-3.740)
[2018-04-12 21:37] LABS: Potassium 2.7 meq/L (3.5-5.1)
[2018-04-12] MEDS ORDERED: Potassium Chloride 25 MEQ Effervescent Tablet PO ONE (21:55)
[2018-04-12] MEDS ORDERED: Potassium Chlor 20 mEq Premix 20 MEQ/100 ML PIGGYBACK IV.SIG SCH (22:30)
--- NOTE | 2018-04-13 00:05 | XR ---
EXAM DATE: 04/12/2018 11:58 PM EDT AGE/SEX: 77 years / Female INDICATIONS: Right knee pain. CLINICAL DATA: This is the patient's initial encounter. Patient reports that signs and symptoms have been present for 1 day and indicates a pain score of 3/10. MEDICAL/SURGICAL HISTORY: Hypertension. Diabetes mellitus type II. Stroke. Hysterectomy. COMPARISON: No prior exams available for comparison. FINDINGS: 2 views of the right knee. Minimal medial compartment narrowing. Alignment within normal limits. No e vidence fracture. No evidence of joint effusion. Minimal osteophytes. CONCLUSION: 1. Mild osteoarthritic findings. 2. No evidence of fracture. Electronically signed by: Saqib Webb MD 04/13/2018 12:04 AM EDT
[2018-04-13] MEDS: Rivaroxaban 15 MG Tablet PO SCH ×3 (00:06→17:03)
[2018-04-13] MEDS: Potassium Chlor 20 mEq Premix 20 MEQ/100 ML PIGGYBACK IV.SIG SCH ×2 (00:06→02:39)
--- NOTE | 2018-04-13 00:06 | XR ---
EXAM DATE: 04/12/2018 11:59 PM EDT AGE/SEX: 77 years / Female INDICATIONS: Right ankle pain. CLINICAL DATA: This is the patient's initial encounter. Patient reports that signs and symptoms have been present for 1 day and indicates a pain score of 8/10. MEDICAL/SURGICAL HISTORY: Hypertension. Diabetes mellitus type II. Stroke. Hysterectomy. COMPARISON: No prior exams available for comparison. FINDINGS: 3 views of the right ankle. Bone alignment within normal limits. No evidence of fracture. Small osteo phytes of the tibiotalar joint. No evidence of joint narrowing. Ankle mortise intact. Small plantar a nd Achilles calcaneal spurs. CONCLUSION: Mild osteoarthritic findings of the ankle. No evidence of fracture. Electronically signed by: Saqib Webb MD 04/13/2018 12:05 AM EDT
[2018-04-13] MEDS: Sod Chloride 0.9% Inj 1,000 ML IV.CONT SCH ×4 (00:14→21:56)
[2018-04-13 01:27] LABS: Calcium 8.3 mg/dL (8.5-10.1); Carbon Dioxide 26.9 meq/L (21.0-32.0); Potassium 3.4 meq/L (3.5-5.1)
[2018-04-13] MEDS: Senna/Docusate Sodium 8.6/50 MG Tablet PO SCH ×2 (09:06→20:45)
[2018-04-13] MEDS: Insulin NovoLOG Aspart Correctional Sugar Inj SQ SCH ×4 (09:06→20:45)
[2018-04-13 09:08] LABS: Baso # (Auto) 0.1 th/mm3 (0.0-0.2); Baso % (Auto) 0.6 % (0.0-2.0); Eos # (Auto) 0.1 th/mm3 (0.0-0.4); Eos % (Auto) 0.6 % (0.0-4.0); Hemoglobin 11.6 gm/dL (11.6-15.3); Lymph # (Auto) 1.7 th/mm3 (1.0-4.8); Lymph % (Auto) 21.1 % (9.0-44.0); Mean Corpuscular HGB Conc 34.1 % (32.0-36.0); Mean Corpuscular Hemoglobin 29.6 pg (27.0-34.0); Mean Platelet Volume 10.5 fL (7.0-11.0); Mono # (Auto) 0.6 th/mm3 (0.0-0.9); Mono % (Auto) 7.4 % (0.0-8.0); Neut # (Auto) 5.6 th/mm3 (1.8-7.7); Neut % (Auto) 70.3 % (16.0-70.0); Platelet Count 152 th/mm3 (150-450); Red Blood Count 3.91 mil/mm3 (4.00-5.30); Red Cell Distribution Width 13.9 % (11.6-17.2)
[2018-04-13 10:37] LABS: Alanine Aminotransferase 82 U/L (10-53); Albumin 2.4 g/dL (3.4-5.0); Alkaline Phosphatase 52 U/L (45-117); Anion Gap 8 meq/L (5-15); Aspartate Aminotransferase 151 U/L (15-37); Blood Urea Nitrogen 14 mg/dL (7-18); Calcium 8.1 mg/dL (8.5-10.1); Carbon Dioxide 24.6 meq/L (21.0-32.0); Chloride 108 meq/L (98-107); Chol/HDL Ratio 2.19 Ratio; Cholesterol 59 mg/dL (120-200); Creatine Kinase 6543 U/L (26-192); Glomerular Filtration Rate 36 mL/min (>89); Glucose,Random 117 mg/dL (74-106); HDL Cholesterol 26.9 mg/dL (40.0-60.0); LDL Cholesterol,Calculated 5 mg/dL (0-99); Potassium 3.1 meq/L (3.5-5.1); Sodium 141 meq/L (136-145); Total Protein 5.9 g/dL (6.4-8.2); Triglycerides 134 mg/dL (42-150)
[2018-04-13 11:02] LABS: CKMB Percent 0.3 % (0.0-4.0); Creatine Kinase MB 20.1 ng/mL (0.5-3.6)
--- NOTE | 2018-04-13 11:23 | MB ---
cc: Kajal Figueroa MD DATE: 04/13/2018 REASON FOR CONSULTATION: Possible stroke. HISTORY OF PRESENT ILLNESS: Taken from the chart due to the patient's aphasia. This 77-year-old woman with a history of stroke, some residual right-sided weakness, hypertension, hyperlipidemia. Came in because her boyfriend had noted some weakness, lifting her off the couch was difficult, could not stand. She has been walking up until this event. No changes with her aphasia. No new weakness, except for the leg and painful. Apparently has not eaten in the last 2 days, but she did eat some breakfast this morning. There is some report of a chronic cough. PAST MEDICAL HISTORY: Stroke with aphasia and right-sided deficits, hypertension, hyperlipidemia. PAST SURGICAL HISTORY: Hysterectomy. SOCIAL HISTORY: Tobacco and alcohol in the past. FAMILY HISTORY: Unknown. HOME MEDICINES: Are not listed and the patient cannot tell me. PHYSICAL EXAMINATION: VITAL SIGNS: Temperature is 98.2, pulse 79, respiratory rate 14, blood pressure 108/55. NECK: Supple. I do not appreciate any carotid bruits . HEART: Currently her heart is regular. NEUROLOGIC: She is awake and alert. Pupils reactive. Face is fairly symmetrical. She has mostly expressive aphasia, but some receptive as well as she has trouble following any commands. 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 She does posture a little bit. Left arm is normal. Right leg, she can, lift off the bed, but she does have some tenderness in her calf on the right and the right lower is a little larger than the left. DTRs are trace to 1+. Sensory seems to be intact. Gait cannot be assessed. DIAGNOSTIC DATA: Her labs are reviewed. Lipids are pending. B12 is 629. Urine culture is indicated and is pending. Report of CT head shows old left parietal temporal occipital infarct, nothing acute was noted. Venous Doppler shows positive DVT in the right side in the calf and proximal thigh. IMPRESSION AND PLAN: Right deep vein thrombosis. The patient is currently on Xarelto. We will continue that. We will get an MRI of the brain and a 2-D echo. Check her lipids. If her LDL is over 70, she will need to be on a statin. We can maintain her on baby aspirin with the Xarelto. PT, OT, speech therapy evaluation. Watch her on telemetry for any atrial fibrillation, but she will be on anticoagulants for some time. Continue current care. Further recommendations will be made if needed. MD AJ Orr/rachel , 09:52 AM , 10:01 AM
--- NOTE | 2018-04-13 15:42 | ECHRPT ---
Indication: CVA / TIA CONCLUSIONS Normal left ventricular size. Wall thickness is normal. The left ventricular systolic function is normal with an estimated ejection fraction in the range of 55-60%. There is trace tricuspid valve regurgitation. The estimated pulmonary arterial pressure is 27 mmHg. BP: / HR: Rhythm: MEASUREMENTS (Male / Female) Normal Values Technical Quality:Technically difficult study 2D ECHO LV Diastolic Diameter PLAX 4.0 cm 4.2 - 5.9 / 3.9 - 5.3 cm LV Systolic Diameter PLAX 2.3 cm IVS Diastolic Thickness 1.0 cm 0.6 - 1.0 / 0.6 - 0.9 cm LVPW Diastolic Thickness 1.0 cm 0.6 - 1.0 / 0.6 - 0.9 cm LV Relative Wall Thickness 0.5 RV Internal Dim ED PLAX 2.9 cm LVOT Diameter 2.0 cm Aortic Root Diameter 2.6 cm LA Systolic Diameter LX 2.5 cm 3.0 - 4.0 / 2.7 - 3.8 cm DOPPLER AV Peak Velocity 106.0 cm/s AV Peak Gradient 4.5 mmHg LVOT Peak Velocity 102.0 cm/s LVOT Peak Gradient 4.2 mmHg AV Area Cont Eq pk 3.0 cm Mitral E Point Velocity 78.5 cm/s Mitral A Point Velocity 111.0 cm/s Mitral E to A Ratio 0.7 LV E' Lateral Velocity 9.7 cm/s Mitral E to LV E' Lateral Ratio 8.1 LV E' Septal Velocity 9.1 cm/s Mitral E to LV E' Septal Ratio 8.7 TR Peak Velocity 208.0 cm/s TR Peak Gradient 17.3 mmHg Right Atrial Pressure 10.0 mmHg Pulmonary Artery Systolic Pressu 27.3 mmHg Right Ventricular Systolic Press 27.3 mmHg PV Peak Velocity 85.5 cm/s PV Peak Gradient 2.9 mmHg FINDINGS LEFT VENTRICLE Normal left ventricular size. Wall thickness is normal. The left ventricular systolic function is normal with an estimated ejection fraction in the range of 55-60%. RIGHT VENTRICLE Normal right ventricular size and systolic function. LEFT ATRIUM The left atrial size is normal. RIGHT ATRIUM The right atrial size is normal. ATRIAL SEPTUM Normal atrial septal thickness without atrial level shunting by limited color doppler interrogation. AORTA The aortic root and proximal ascending aorta are normal in size on limited imaging. MITRAL VALVE Structurally normal mitral valve. No mitral valve stenosis or regurgitation. AORTIC VALVE Trileaflet aortic valve. TRICUSPID VALVE There is trace tricuspid valve regurgitation. The estimated pulmonary arterial pressure is 27 mmHg. PULMONARY VALVE No pulmonary valve regurgitation or stenosis. VESSELS The inferior vena cava is normal in size. PERICARDIUM No pericardial effusion. Jeff Almanza MD (Electronically Signed) Final Date:13 April 2018 15:42
[2018-04-13 16:45] LABS: Hemoglobin A1c 6.8 % (4.3-6.0)
--- NOTE | 2018-04-13 17:39 | P.PN ---
Subjective Interval history: Patient seen lying in bed. She continues to have expressive aphasia making communication difficult. Nursing reports no adverse events overnight. Physical Exam Vital signs: Vital Signs 04/12/18 18:00 04/12/18 20:00 04/12/18 21:40 Temperature 98.7 F Pulse Rate 88 82 73 Respiratory Rate 20 20 Blood Pressure 110/71 117/56 L Pulse Oximetry 86 L 04/13/18 00:00 04/13/18 00:35 04/13/18 04:00 Temperature 97.7 F 98.6 F Pulse Rate 78 81 78 Respiratory Rate 19 18 Blood Pressure 97/54 L 106/58 L Pulse Oximetry 96 97 04/13/18 08:00 04/13/18 12:00 04/13/18 15:43 Temperature 98.2 F 98.1 F 97.9 F Pulse Rate 79 90 76 Respiratory Rate 14 20 20 Blood Pressure 108/55 L 114/64 115/61 Pulse Oximetry 96 95 97 Intake & Output 04/12/18 04/13/18 04/13/18 18:59 06:59 18:59 Intake Total 300 / 300 1742 / 1742 1000 / 1000 Balance 300 / 300 1742 / 1742 1000 / 1000 Weight 81.647 kg 87.1 kg Intake: IV 300 / 300 1300 / 1300 1000 / 1000 NS Inj 1,000 ML @ 125 mls/hr IV 1000 / 1000 1000 / 1000 .CONT .Q8H SUSY Rx#:[id number] KCl 10 mEq Premix Inj 10 meq In 300 / 300 100 / 100 100 ml @ 100 mls/hr IV.SIG Q1H SUSY Rx#:[id number] KCl 20 mEq Premix Inj 20 meq In 200 / 200 100 ml @ 50 mls/hr IV.SIG Q2H SUSY Rx#:[id number] Oral 442 / 442 Other: # Incontinent Voids 1 Date of Last Bowel Movement 04/12/18 Narrative: GENERAL: Well-nourished, well-developed adult female in no acute distress SKIN: warm/dry. HEAD: Atraumatic. Normocephalic. EYES: PERRLA, EOM I. NECK: No JVD. No appreciated lymphadenopathy CARDIOVASCULAR: Regular rate and rhythm without murmurs. RESPIRATORY: CTAB; normal rate GASTROINTESTINAL: Abdomen soft, non-tender, nondistended. MUSCULOSKELETAL: Bilateral calf pain; RLE asymmetrically larger. NEUROLOGICAL: Awake and alert. CN- symmetrical smile; right facial droop. expressive aphasia. Bilateral upper and lower extremity weakness. Patient w/ 4/ 5 strength in upper and lower R extremity; asymmetrically weaker in comparison to left PSYCHIATRIC: alert and responsive to questions with difficult speech; orientation difficult to assess. No appreciable anxiety Results - Labs CBC & Chem 7: 04/13/18 07:33 04/13/18 07:33 Laboratory Results - last 24 hr 04/12/18 04/12/18 04/12/18 13:25 20:00 20:00 WBC RBC Hgb Hct MCV MCH MCHC RDW Plt Count MPV Neut % (Auto) Lymph % (Auto) [place] % (Auto) Eos % (Auto) Baso % (Auto) Neut # (Auto) Lymph # (Auto) [place] # (Auto) Eos # (Auto) Baso # (Auto) WBC Differential Differential Comment Sodium 137 Potassium 2.7 L* Chloride 100 Carbon Dioxide 29.5 Anion Gap 8 BUN 15 Creatinine 1.69 H 1.67 H Estimated GFR 29 L 30 L POC Glucose Random Glucose 118 H Lactic Acid Calcium 8.5 Magnesium 1.9 Total Bilirubin AST ALT Alkaline Phosphatase Total Creatine Kinase CK-MB (CK-2) CK-MB (CK-2) % Total Protein Albumin Triglycerides Cholesterol LDL Cholesterol, Calc HDL Cholesterol Cholesterol/HDL Ratio Vitamin B12 629 TSH 2.290 Urine Color Yellow Urine Clarity Hazy H Urine pH 6.0 Ur Specific [place] 1.011 Urine Protein 100 H Urine Glucose (UA) Negative Urine Ketones Negative Urine Occult Blood Large H Urine Nitrate Negative Urine Bilirubin Negative Urine Urobilinogen 2.0 H Ur Leukocyte Esterase Negative Urine RBC 4 H Urine WBC Less than 1 Ur Squamous Epith Cells 1 Amorphous Sediment Many H Urine Bacteria Occasional H Hyaline Casts 2 Urine Mucus Few H Micro UA Comment Cath-culture ind Urine Culture Comments Cath-cult indicated 04/12/18 04/12/18 04/13/18 20:00 20:20 00:48 WBC RBC Hgb Hct MCV MCH MCHC RDW Plt Count MPV Neut % (Auto) Lymph % (Auto) [place] % (Auto) Eos % (Auto) Baso % (Auto) Neut # (Auto) Lymph # (Auto) [place] # (Auto) Eos # (Auto) Baso # (Auto) WBC Differential Differential Comment Sodium 141 Potassium 3.4 L Chloride 105 Carbon Dioxide 26.9 Anion Gap 9 BUN 13 Creatinine 1.49 H Estimated GFR 34 L POC Glucose 122 H Random Glucose 119 H Lactic Acid 1.9 Calcium 8.3 L Magnesium Total Bilirubin AST ALT Alkaline Phosphatase Total Creatine Kinase CK-MB (CK-2) CK-MB (CK-2) % Total Protein Albumin Triglycerides Cholesterol LDL Cholesterol, Calc HDL Cholesterol Cholesterol/HDL Ratio Vitamin B12 TSH Urine Color Urine Clarity Urine pH Ur Specific [place] Urine Protein Urine Glucose (UA) Urine Ketones Urine Occult Blood Urine Nitrate Urine Bilirubin Urine Urobilinogen Ur Leukocyte Esterase Urine RBC Urine WBC Ur Squamous Epith Cells Amorphous Sediment Urine Bacteria Hyaline Casts Urine Mucus Micro UA Comment Urine Culture Comments 04/13/18 04/13/18 04/13/18 07:33 07:33 13:00 WBC 8.0 RBC 3.91 L Hgb 11.6 Hct 34.0 L MCV 87.0 MCH 29.6 MCHC 34.1 RDW 13.9 Plt Count 152 MPV 10.5 Neut % (Auto) 70.3 H Lymph % (Auto) 21.1 [place] % (Auto) 7.4 Eos % (Auto) 0.6 Baso % (Auto) 0.6 Neut # (Auto) 5.6 Lymph # (Auto) 1.7 [place] # (Auto) 0.6 Eos # (Auto) 0.1 Baso # (Auto) 0.1 WBC Differential . Differential Comment Auto diff final Sodium 141 Potassium 3.1 L Chloride 108 H Carbon Dioxide 24.6 Anion Gap 8 BUN 14 Creatinine 1.43 H Estimated GFR 36 L POC Glucose 117 H Random Glucose 117 H Lactic Acid Calcium 8.1 L Magnesium Total Bilirubin 0.8 AST 151 H ALT 82 H Alkaline Phosphatase 52 Total Creatine Kinase 6543 H CK-MB (CK-2) 20.1 H CK-MB (CK-2) % 0.3 Total Protein 5.9 L D Albumin 2.4 L D Triglycerides 134 Cholesterol 59 L LDL Cholesterol, Calc 5 HDL Cholesterol 26.9 L Cholesterol/HDL Ratio 2.19 Vitamin B12 TSH Urine Color Urine Clarity Urine pH Ur Specific [place] Urine Protein Urine Glucose (UA) Urine Ketones Urine Occult Blood Urine Nitrate Urine Bilirubin Urine Urobilinogen Ur Leukocyte Esterase Urine RBC Urine WBC Ur Squamous Epith Cells Amorphous Sediment Urine Bacteria Hyaline Casts Urine Mucus Micro UA Comment Urine Culture Comments Microbiology 04/12/18 13:25 Catheterized Urine Urine Culture - Preliminary gram negative rods - Imaging Impressions Ankle X-Ray 04/12/18 00:00 CONCLUSION: Mild osteoarthritic findings of the ankle. No evidence of fracture. Carotid Doppler Study 04/12/18 00:00 CONCLUSION: 1. Right Internal Carotid Artery: Findings indicate <50% stenosis. 2. 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 Knee X-Ray 04/12/18 00:00 CONCLUSION: 1. Mild osteoarthritic findings. 2. No evidence of fracture. Venous Doppler Study 04/12/18 00:00 CONCLUSION: 1. Study is positive for deep venous thrombosis on the right side in the calf and proximal thigh. Assessment and Plan - Plan Mrs. Cummings is a 77 yo F with: Weakness Impression: PMH CVA and prior rhabdomyolysis. 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 Some pain on exam of lower extremities may also contribute to seeming weakness Head CT negative -Will treat hypokalemia and rhabdomyolysis -Will evaluate for new CVA; neurology consulted CYRUS/Rhabdomyolysis Impression: CK >6K on admission; Cr 1.6 (baseline 1) -Will continue IV F -125ml/hr in ED -Will give an additional 1L bolus and trend Cr/CK -Will monitor urine output Hypokalemia Impression: K 2.3 on admission. No known GI loss of K; possible nutritional deficiency EKG on admission w/o EKG signs -Will replete K -s/p IV repletion in ED -Will repeat K -Will place on telemetry -Will check Mg DM Impression: Normal blood glucose on admission; per EMR on Metformin at home -Will give SS Novolog during hospitalization DVT RLE with DVT on Doppler US -Will start Xarelto 15mg BID Case management DVT PPX -Xarelto -SCD's Code Status: Full code until status clarified
--- NOTE | 2018-04-13 17:42 | ECG ---
Date Performed: 04/12/2018 Time Performed: 12:59:55 PTAGE: 77 years EKG: Sinus rhythm BORDERLINE LEFT AXIS DEVIATION NONSPECIFIC ST & T-WAVE ABNORMALITY Since the previous tracing, no si gnificant change noted BORDERLINE ECG PREVIOUS TRACING : 01/25/2018 19.38 DOCTOR: Minh Phipps Interpretating Date/Time 04/13/2018 18:09:43
--- NOTE | 2018-04-13 17:42 | ECG ---
Date Performed: 04/12/2018 Time Performed: 22:42:29 PTAGE: 77 years EKG: Sinus rhythm NONSPECIFIC T-WAVE ABNORMALITY Since the previous tracing, no significant change noted BORDERLINE EC G PREVIOUS TRACING : 04/12/2018 12.59 DOCTOR: Mnih Phipps Interpretating Date/Time 04/13/2018 17:40:35
--- NOTE | 2018-04-13 18:08 | MR ---
EXAM DATE: 04/13/2018 2:06 PM EDT AGE/SEX: 77 years / Female INDICATIONS: CVA. Right leg weakness. CLINICAL DATA: This is the patient's subsequent encounter. Patient reports that signs and symptoms h ave been present for 2 days and indicates a pain score of 0/10. MEDICAL/SURGICAL HISTORY: Cerebrovascular disease. Hypertension. Hysterectomy. [place] [facility] [place]/02/2016. . TECHNIQUE: Multiplanar, multisequence examination of the brain was performed without contrast. FINDINGS: Cerebrum: There is an old left-sided infarction in the entire MCA distribution with encephalomalacia and left hemispheric atrophy. Encephalomalacia in the left occipital lobe predates the acute infarct ion in September 2016. No evidence of midline shift. No evidence of acute blood products. No acute findin gs in the right hemisphere. Posterior Fossa: The cerebellum and brainstem are intact. The 4th ventricle is midline. The cerebel lopontine angle is unremarkable. The cerebellar tonsils are normal in position. Diffusion Imaging: No focal areas of restricted diffusion are seen. No evidence of acute infarction . Extracranial: The visualized portions of the orbits and paranasal sinuses are unremarkable. CONCLUSION: 1. No evidence of acute infarction or hemorrhage. 2. Old left MCA and RAY infarctions with atrophy and encephalomalacia. Electronically signed by: Vel Chanel MD 04/13/2018 6:07 PM EDT
[2018-04-13] MEDS: traZODone 50 MG Tablet PO SCH (20:45)
[2018-04-14] MEDS: Sod Chloride 0.9% Inj 1,000 ML IV.CONT SCH ×4 (03:57→18:48)
[2018-04-14 06:59] LABS: Alanine Aminotransferase 97 U/L (10-53); Albumin 2.2 g/dL (3.4-5.0); Alkaline Phosphatase 51 U/L (45-117); Anion Gap 7 meq/L (5-15); Aspartate Aminotransferase 203 U/L (15-37); Blood Urea Nitrogen 11 mg/dL (7-18); Calcium 8.1 mg/dL (8.5-10.1); Carbon Dioxide 24.2 meq/L (21.0-32.0); Chloride 110 meq/L (98-107); Creatine Kinase 8320 U/L (26-192); Glomerular Filtration Rate 37 mL/min (>89); Glucose,Random 120 mg/dL (74-106); Sodium 141 meq/L (136-145); Total Protein 5.4 g/dL (6.4-8.2)
[2018-04-14 07:06] LABS: Potassium 2.6 meq/L (3.5-5.1)
[2018-04-14 07:39] LABS: CKMB Percent 0.4 % (0.0-4.0); Creatine Kinase MB 31.2 ng/mL (0.5-3.6)
[2018-04-14] MEDS ORDERED: Mag Sulf 1 gm/100 ml Premix 100 ML IV.SIG ONE (08:03)
[2018-04-14] MEDS: Insulin NovoLOG Aspart Correctional Sugar Inj SQ SCH ×4 (10:24→21:32)
[2018-04-14] MEDS: Rivaroxaban 15 MG Tablet PO SCH ×2 (10:32→18:25)
[2018-04-14] MEDS: Senna/Docusate Sodium 8.6/50 MG Tablet PO SCH ×2 (10:32→21:24)
[2018-04-14] MEDS: Potassium Chlor 20 mEq Premix 20 MEQ/100 ML PIGGYBACK IV.SIG SCH ×4 (11:19→18:25)
--- NOTE | 2018-04-14 18:47 | P.PN ---
Subjective Interval history: Patient is seen lying in bed. She indicates that she is feeling okay however she is an unreliable historian due to her dysphagia. Nursing reports no adverse events overnight. Physical Exam Vital signs: Vital Signs 04/13/18 20:00 04/13/18 20:01 04/13/18 21:16 Temperature 97.9 F Pulse Rate 82 82 Respiratory Rate 16 Blood Pressure 133/63 Pulse Oximetry 98 97 04/14/18 00:00 04/14/18 00:03 04/14/18 04:00 Temperature 98.1 F 98.5 F Pulse Rate 79 77 75 Respiratory Rate 18 18 Blood Pressure 104/59 L 98/58 L Pulse Oximetry 97 96 04/14/18 04:43 04/14/18 08:00 04/14/18 12:00 Temperature 98 F 97.8 F Pulse Rate 70 76 72 Respiratory Rate 16 18 Blood Pressure 106/54 L 105/53 L Pulse Oximetry 96 96 04/14/18 16:00 04/14/18 17:35 Temperature 97.4 F L Pulse Rate 94 H Respiratory Rate 18 Blood Pressure 125/73 Pulse Oximetry 99 99 Intake & Output 04/13/18 04/14/18 04/14/18 18:59 06:59 18:59 Intake Total 1100 / 1100 1442 / 1442 1300 / 1300 Balance 1100 / 1100 1442 / 1442 1300 / 1300 Weight 87.6 kg Intake: IV 1100 / 1100 1000 / 1000 1300 / 1300 NS Inj 1,000 ML @ 175 mls/hr IV 1000 / 1000 1000 / 1000 1000 / 1000 .CONT .[id number] SUSY Rx#:[id number] KCl 20 mEq Premix Inj 20 meq In 300 / 300 100 ml @ 50 mls/hr IV.SIG Q2H SUSY Rx#:[id number] Rocephin Inj 1,000 MG In NS Inj 100 / 100 100 ML @ 200 mls/hr IV.SIG Q24H SUSY Rx#:[id number] Oral 442 / 442 Other: # Voids 2 1 # Incontinent Voids 1 # Urine Diapers 1 Date of Last Bowel Movement 04/12/18 04/14/18 Narrative: GENERAL: Well-nourished, well-developed adult female in no acute distress SKIN: warm/dry. HEAD: Atraumatic. Normocephalic. EYES: PERRLA, EOM I. NECK: No JVD. No appreciated lymphadenopathy CARDIOVASCULAR: Regular rate and rhythm without murmurs. RESPIRATORY: CTAB; normal rate GASTROINTESTINAL: Abdomen soft, non-tender, nondistended. MUSCULOSKELETAL: No further calf pain. Right lower extremity slightly larger. No signal edema bilateral NEUROLOGICAL: Awake and alert. CN- symmetrical smile; right facial droop. expressive aphasia. Bilateral upper and lower extremity weakness. Patient w/ 4/ 5 strength in upper and lower R extremity; asymmetrically weaker in comparison to left PSYCHIATRIC: alert and responsive to questions with difficult speech; orientation difficult to assess. No appreciable anxiety Results - Labs CBC & Chem 7: 04/13/18 07:33 04/15/18 07:03 Laboratory Results - last 24 hr 04/13/18 04/13/18 04/14/18 07:40 20:40 05:19 Sodium 141 Potassium 2.6 L* Chloride 110 H Carbon Dioxide 24.2 Anion Gap 7 BUN 11 Creatinine 1.38 H Estimated GFR 37 L POC Glucose 132 H 169 H Random Glucose 120 H Calcium 8.1 L Total Bilirubin 0.6 AST 203 H ALT 97 H Alkaline Phosphatase 51 Total Creatine Kinase 8320 H CK-MB (CK-2) 31.2 H CK-MB (CK-2) % 0.4 Total Protein 5.4 L Albumin 2.2 L 04/14/18 04/14/18 04/14/18 08:57 11:21 16:34 Sodium Potassium Chloride Carbon Dioxide Anion Gap BUN Creatinine Estimated GFR POC Glucose 132 H 213 H 181 H Random Glucose Calcium Total Bilirubin AST ALT Alkaline Phosphatase Total Creatine Kinase CK-MB (CK-2) CK-MB (CK-2) % Total Protein Albumin Microbiology 04/12/18 13:25 Catheterized Urine Urine Culture - Final Klebsiella pneumoniae Assessment and Plan - Plan Mrs. Cummings is a 77 yo F with: Weakness Impression: PMH CVA and prior rhabdomyolysis. 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 Head CT negative -Will treat hypokalemia and rhabdomyolysis -Will evaluate for new CVA; neurology consulted CYRUS/Rhabdomyolysis Impression: CK >6K on admission; Cr 1.6 (baseline 1) -Will continue IV F - increase IVF to 175ml/hr -Will monitor urine output Hypokalemia Impression: K 2.3 on admission. No known GI loss of K; possible nutritional deficiency EKG on admission w/o EKG signs -Will replete K & Mg as needed -Will place on telemetry DM Impression: Normal blood glucose on admission; per EMR on Metformin at home -Will give SS Novolog during hospitalization DVT RLE with DVT on Doppler US -Will start Xarelto 15mg BID Case management DVT PPX -Xarelto -SCD's Code Status: Full code
[2018-04-14] MEDS: traZODone 50 MG Tablet PO SCH (21:24)
[2018-04-15] MEDS: Sod Chloride 0.9% Inj 1,000 ML IV.CONT SCH ×4 (04:46→18:06)
[2018-04-15 08:30] LABS: Alanine Aminotransferase 113 U/L (10-53); Anion Gap 7 meq/L (5-15); Aspartate Aminotransferase 197 U/L (15-37); Blood Urea Nitrogen 7 mg/dL (7-18); Calcium 8.1 mg/dL (8.5-10.1); Carbon Dioxide 22.6 meq/L (21.0-32.0); Chloride 116 meq/L (98-107); Glomerular Filtration Rate 44 mL/min (>89); Glucose,Random 119 mg/dL (74-106); Magnesium 2.3 mg/dL (1.5-2.5); Sodium 146 meq/L (136-145)
[2018-04-15 09:04] LABS: Potassium 2.9 meq/L (3.5-5.1)
[2018-04-15] MEDS: Insulin NovoLOG Aspart Correctional Sugar Inj SQ SCH ×4 (09:06→20:32)
[2018-04-15 09:22] LABS: Alkaline Phosphatase 49 U/L (45-117); Creatine Kinase 7356 U/L (26-192); Total Protein 5.1 g/dL (6.4-8.2)
[2018-04-15] MEDS ORDERED: Potassium Chlor 20 mEq Premix 20 MEQ/100 ML PIGGYBACK IV.SIG SCH (10:00)
[2018-04-15 10:06] LABS: CKMB Percent 0.4 % (0.0-4.0); Creatine Kinase MB 30.9 ng/mL (0.5-3.6)
[2018-04-15] MEDS: Potassium Chlor 10 mEq Premix 10 MEQ/100 ML PIGGYBACK IV.SIG SCH ×6 (10:36→16:45)
[2018-04-15] MEDS: Senna/Docusate Sodium 8.6/50 MG Tablet PO SCH ×2 (10:41→20:20)
[2018-04-15] MEDS: Rivaroxaban 15 MG Tablet PO SCH ×2 (10:42→17:21)
--- NOTE | 2018-04-15 15:01 | P.PN ---
Subjective Interval history: Patient seen lying in bed. Appears to be tolerating additional IVF fluid with no indication of overload. Patient is poor historian. Nursing reports no adverse events. Physical Exam Vital signs: Vital Signs 04/14/18 16:00 04/14/18 17:35 04/14/18 19:34 Temperature 97.4 F L Pulse Rate 94 H 71 Respiratory Rate 18 Blood Pressure 125/73 Pulse Oximetry 99 99 04/14/18 20:00 04/15/18 00:00 04/15/18 01:22 Temperature 97.9 F 98.0 F Pulse Rate 92 H 84 81 Respiratory Rate 18 18 Blood Pressure 107/56 L 83/53 L 96/51 L Pulse Oximetry 98 96 04/15/18 04:00 04/15/18 05:10 04/15/18 07:00 Temperature 97.9 F Pulse Rate 77 71 Respiratory Rate 16 Blood Pressure 106/55 L Pulse Oximetry 98 100 04/15/18 08:00 04/15/18 09:13 04/15/18 12:00 Temperature 98.0 F 97.6 F Pulse Rate 74 75 78 Respiratory Rate 16 16 Blood Pressure 107/55 L 117/56 L Pulse Oximetry 98 98 Intake & Output 04/14/18 04/15/18 04/15/18 18:59 06:59 18:59 Intake Total 3130 / 3130 1250 / 1250 300 / 300 Balance 3130 / 3130 1250 / 1250 300 / 300 Weight 87 kg Intake: IV 2300 / 2300 1100 / 1100 300 / 300 NS Inj 1,000 ML @ 175 mls/hr IV 2000 / 2000 1000 / 1000 .CONT .Q5H43M S[facility] Rx#:[id number] KCl 10 mEq Premix Inj 10 meq In 300 / 300 100 ml @ 100 mls/hr IV.SIG Q1H S[facility] Rx#:[id number] KCl 20 mEq Premix Inj 20 meq In 300 / 300 100 / 100 100 ml @ 50 mls/hr IV.SIG Q2H S[facility] Rx#:[id number] Oral 830 / 830 150 / 150 Other: # Voids 6 1 Date of Last Bowel Movement 04/14/18 04/14/18 04/14/18 # Bowel Movements 2 Narrative: GENERAL: Well-nourished, well-developed adult female in no acute distress SKIN: warm/dry. HEAD: Atraumatic. Normocephalic. EYES: PERRLA, EOM I. NECK: No JVD. No appreciated lymphadenopathy CARDIOVASCULAR: Regular rate and rhythm without murmurs. RESPIRATORY: CTAB; normal rate GASTROINTESTINAL: Abdomen soft, non-tender, nondistended. MUSCULOSKELETAL: No further calf pain. Right lower extremity slightly larger. No signal edema bilateral NEUROLOGICAL: Awake and alert. CN- symmetrical smile; right facial droop. expressive aphasia. Bilateral upper and lower extremity weakness. Patient w/ 4/ 5 strength in upper and lower R extremity; asymmetrically weaker in comparison to left PSYCHIATRIC: alert and responsive to questions with difficult speech; orientation difficult to assess. No appreciable anxiety Results - Labs CBC & Chem 7: 04/13/18 07:33 04/15/18 07:03 Laboratory Results - last 24 hr 04/14/18 04/14/18 04/15/18 16:34 21:23 07:03 Sodium 146 H Potassium 2.9 L* Chloride 116 H Carbon Dioxide 22.6 Anion Gap 7 BUN 7 Creatinine 1.20 H Estimated GFR 44 L POC Glucose 181 H 205 H Random Glucose 119 H Calcium 8.1 L Magnesium 2.3 Total Bilirubin 0.4 AST 197 H ALT 113 H Alkaline Phosphatase 49 Total Creatine Kinase 7356 H CK-MB (CK-2) 30.9 H CK-MB (CK-2) % 0.4 Total Protein 5.1 L Albumin 2.0 L 04/15/18 04/15/18 07:03 11:58 Sodium Potassium Chloride Carbon Dioxide Anion Gap BUN Creatinine Estimated GFR POC Glucose 118 H 155 H Random Glucose Calcium Magnesium Total Bilirubin AST ALT Alkaline Phosphatase Total Creatine Kinase CK-MB (CK-2) CK-MB (CK-2) % Total Protein Albumin Assessment and Plan - Plan Mrs. Cummings is a 77 yo F with: 04/15: Continue with current medical plan. We will likely discharge after electrolytes stabilize and kidney function improves. Weakness Impression: PMH CVA and prior rhabdomyolysis. 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 Head CT negative -Will treat hypokalemia and rhabdomyolysis -Will evaluate for new CVA; neurology consulted CYRUS/Rhabdomyolysis Impression: CK >6K on admission; Cr 1.6 (baseline 1) -Will continue IV F - increase IVF to 175ml/hr -Will monitor urine output Hypokalemia Impression: K 2.3 on admission. No known GI loss of K; possible nutritional deficiency EKG on admission w/o EKG signs -Will replete K & Mg as needed -Will place on telemetry DM Impression: Normal blood glucose on admission; per EMR on Metformin at home -Will give SS Novolog during hospitalization DVT RLE with DVT on Doppler US -Will start Xarelto 15mg BID Case management DVT PPX -Xarelto -SCD's Code Status: Full code
[2018-04-15] MEDS: traZODone 50 MG Tablet PO SCH (20:20)
[2018-04-16] MEDS: Sod Chloride 0.9% Inj 1,000 ML IV.CONT SCH ×5 (01:00→21:09)
[2018-04-16] MEDS: Insulin NovoLOG Aspart Correctional Sugar Inj SQ SCH ×4 (09:49→21:10)
[2018-04-16] MEDS: Senna/Docusate Sodium 8.6/50 MG Tablet PO SCH ×2 (09:50→20:45)
[2018-04-16] MEDS: Rivaroxaban 15 MG Tablet PO SCH ×2 (09:52→19:30)
[2018-04-16 10:06] LABS: Alanine Aminotransferase 128 U/L (10-53); Alkaline Phosphatase 47 U/L (45-117); Anion Gap 9 meq/L (5-15); Aspartate Aminotransferase 161 U/L (15-37); Blood Urea Nitrogen 5 mg/dL (7-18); Calcium 7.8 mg/dL (8.5-10.1); Carbon Dioxide 18.3 meq/L (21.0-32.0); Chloride 118 meq/L (98-107); Glomerular Filtration Rate 52 mL/min (>89); Glucose,Random 120 mg/dL (74-106); Potassium 3.7 meq/L (3.5-5.1); Sodium 145 meq/L (136-145); Total Protein 5.1 g/dL (6.4-8.2)
--- NOTE | 2018-04-16 15:03 | P.PN ---
Subjective Interval history: Patient seen sitting up in chair. No family at bedside. She is doing well with no new complaints. Does have expressive aphasia which makes history difficult. Nursing reports no adverse events. Patient tells me that she needs to go to the bedside commode -notified aide. Physical Exam Vital signs: Vital Signs 04/15/18 16:00 04/15/18 20:00 04/16/18 00:00 Temperature 97.6 F 97.7 F 97.4 F L Pulse Rate 85 86 84 Respiratory Rate 16 16 16 Blood Pressure 100/50 L 113/59 L 115/53 L Pulse Oximetry 100 100 97 04/16/18 04:00 04/16/18 08:00 04/16/18 11:10 Temperature 98.2 F 97.9 F Pulse Rate 75 86 Respiratory Rate 14 18 Blood Pressure 108/54 L 133/60 Pulse Oximetry 95 98 98 Intake & Output 04/15/18 04/16/18 04/16/18 18:59 06:59 18:59 Intake Total 800 / 800 1000 / 1000 1000 / 1000 Balance 800 / 800 1000 / 1000 1000 / 1000 Weight 87 kg Intake: IV 800 / 800 1000 / 1000 1000 / 1000 NS Inj 1,000 ML @ 175 mls/hr IV 1000 / 1000 1000 / 1000 .CONT .Q5H43M S[facility] Rx#:[id number] KCl 10 mEq Premix Inj 10 meq In 600 / 600 100 ml @ 100 mls/hr IV.SIG Q1H S[facility] Rx#:[id number] Rocephin Inj 1,000 MG In NS Inj 200 / 200 100 ML @ 200 mls/hr IV.SIG Q24H S[facility] Rx#:[id number] Other: # Incontinent Voids 4 2 Date of Last Bowel Movement 04/14/18 04/14/18 04/15/18 # Bowel Movements 0 Narrative: GENERAL: Well-nourished, well-developed adult female in no acute distress SKIN: warm/dry. HEAD: Atraumatic. Normocephalic. EYES: PERRLA, EOM I. NECK: No JVD. No appreciated lymphadenopathy CARDIOVASCULAR: Regular rate and rhythm without murmurs. RESPIRATORY: CTAB; normal rate GASTROINTESTINAL: Abdomen soft, non-tender, nondistended. MUSCULOSKELETAL: No further calf pain. Right lower extremity slightly larger. No signal edema bilateral NEUROLOGICAL: Awake and alert. CN- symmetrical smile; right facial droop. expressive aphasia. Bilateral upper and lower extremity weakness. Patient w/ 4/ 5 strength in upper and lower R extremity; asymmetrically weaker in comparison to left PSYCHIATRIC: alert and responsive to questions with difficult speech; orientation difficult to assess. No appreciable anxiety Results - Labs CBC & Chem 7: 04/13/18 07:33 04/16/18 09:17 Laboratory Results - last 24 hr 04/15/18 04/15/18 04/16/18 16:23 20:19 08:33 Sodium Potassium Chloride Carbon Dioxide Anion Gap BUN Creatinine Estimated GFR POC Glucose 205 H 270 H 149 H Random Glucose Calcium Phosphorus Magnesium Total Bilirubin AST ALT Alkaline Phosphatase Total Protein Albumin 04/16/18 04/16/18 09:17 11:52 Sodium 145 Potassium 3.7 D Chloride 118 H Carbon Dioxide 18.3 L Anion Gap 9 BUN 5 L Creatinine 1.03 H Estimated GFR 52 L POC Glucose 127 H Random Glucose 120 H Calcium 7.8 L Phosphorus 2.0 L Magnesium 2.0 Total Bilirubin 0.5 AST 161 H ALT 128 H Alkaline Phosphatase 47 Total Protein 5.1 L Albumin 2.0 L Assessment and Plan - Plan Mrs. Cummings is a 77 yo F with: 04/16: Continue with current medical plan. We will likely discharge after electrolytes stabilize and kidney function improves - much better now. Weakness Impression: PMH CVA and prior rhabdomyolysis. 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 Head CT negative -Will treat hypokalemia and rhabdomyolysis -Will evaluate for new CVA; MRI indicated no acute infarct or hemorrhage. CYRUS/Rhabdomyolysis Impression: CK >6K on admission; Cr 1.6 (baseline 1) -Will continue IV F - increase IVF to 175ml/hr -Will monitor urine output Hypokalemia Impression: K 2.3 on admission. No known GI loss of K; possible nutritional deficiency EKG on admission w/o EKG signs -Will replete K & Mg as needed -Will place on telemetry DM Impression: Normal blood glucose on admission; per EMR on Metformin at home -Will give SS Novolog during hospitalization DVT RLE with DVT on Doppler US -Will start Xarelto 15mg BID Case management DVT PPX -Xarelto -SCD's Code Status: Full code
[2018-04-16] MEDS: traZODone 50 MG Tablet PO SCH (20:44)
[2018-04-17] MEDS: Sod Chloride 0.9% Inj 1,000 ML IV.CONT SCH ×2 (04:12→06:21)
[2018-04-17 06:34] LABS: Alanine Aminotransferase 115 U/L (10-53); Albumin 1.7 g/dL (3.4-5.0); Anion Gap 9 meq/L (5-15); Aspartate Aminotransferase 119 U/L (15-37); Blood Urea Nitrogen 4 mg/dL (7-18); Calcium 7.9 mg/dL (8.5-10.1); Carbon Dioxide 18.9 meq/L (21.0-32.0); Chloride 120 meq/L (98-107); Glomerular Filtration Rate 57 mL/min (>89); Glucose,Random 111 mg/dL (74-106); Potassium 3.3 meq/L (3.5-5.1); Sodium 148 meq/L (136-145)
[2018-04-17 06:36] LABS: Alkaline Phosphatase 43 U/L (45-117); Total Protein 4.6 g/dL (6.4-8.2)
[2018-04-17] MEDS: Insulin NovoLOG Aspart Correctional Sugar Inj SQ SCH ×4 (08:00→20:46)
[2018-04-17] MEDS: Potassium Chlor 10 mEq Premix 10 MEQ/100 ML PIGGYBACK IV.SIG SCH ×2 (09:27→10:53)
[2018-04-17] MEDS: Senna/Docusate Sodium 8.6/50 MG Tablet PO SCH ×2 (09:29→20:46)
[2018-04-17] MEDS: Rivaroxaban 15 MG Tablet PO SCH ×2 (09:29→17:04)
--- NOTE | 2018-04-17 12:23 | P.PN ---
Subjective Interval history: Patient seen sitting up in bed. Poor historian due to expressive aphasia. Nursing reports no adverse events. No family at bedside. Physical Exam Vital signs: Vital Signs 04/16/18 16:00 04/16/18 19:00 04/16/18 20:00 Temperature 98.0 F 98 F Pulse Rate 80 86 88 Respiratory Rate 14 17 Blood Pressure 111/63 131/63 Pulse Oximetry 96 97 100 04/17/18 00:00 04/17/18 02:24 04/17/18 04:00 Temperature 98 F 98 F Pulse Rate 92 H 83 92 H Respiratory Rate 17 16 Blood Pressure 109/54 L 109/54 L Pulse Oximetry 99 99 04/17/18 05:02 04/17/18 08:00 04/17/18 12:00 Temperature 97.8 F 97.8 F Pulse Rate 80 81 79 Respiratory Rate 20 20 Blood Pressure 113/59 L 172/58 H Pulse Oximetry 97 98 Intake & Output 04/16/18 04/17/18 04/17/18 18:59 06:59 18:59 Intake Total 2340 / 2340 2227 / 2227 220 / 220 Output Total 400 / 400 Balance 1940 / 1940 2227 / 2227 220 / 220 Weight 93.4 kg Intake: IV 2100 / 2100 1807 / 1807 100 / 100 NS Inj 1,000 ML @ 100 mls/hr IV 1999 / 1999 1807 / 1807 .CONT .Q10H [facility] Rx#:[id number] KCl 10 mEq Premix Inj 10 meq In 100 / 100 100 ml @ 100 mls/hr IV.SIG Q1H S[facility] Rx#:[id number] Rocephin Inj 1,000 MG In NS Inj 100 / 100 100 ML @ 200 mls/hr IV.SIG Q24H S[facility] Rx#:[id number] Oral 240 / 240 420 / 420 120 / 120 Output: Urine 400 / 400 Other: # Incontinent Voids 4 Date of Last Bowel Movement 04/16/18 04/16/18 # Bowel Movements 1 Narrative: GENERAL: Well-nourished, well-developed adult female in no acute distress SKIN: warm/dry. HEAD: Atraumatic. Normocephalic. EYES: PERRLA, EOM I. NECK: No JVD. No appreciated lymphadenopathy CARDIOVASCULAR: Regular rate and rhythm without murmurs. RESPIRATORY: CTAB; normal rate GASTROINTESTINAL: Abdomen soft, non-tender, nondistended. MUSCULOSKELETAL: No further calf pain. Right lower extremity slightly larger. No signal edema bilateral NEUROLOGICAL: Awake and alert. CN- symmetrical smile; right facial droop. expressive aphasia. Bilateral upper and lower extremity weakness. Patient w/ 4/ 5 strength in upper and lower R extremity; asymmetrically weaker in comparison to left PSYCHIATRIC: alert and responsive to questions with difficult speech; orientation difficult to assess. No appreciable anxiety Results - Labs CBC & Chem 7: 04/13/18 07:33 04/17/18 04:42 Laboratory Results - last 24 hr 04/16/18 04/16/18 04/16/18 11:52 16:46 20:43 Sodium Potassium Chloride Carbon Dioxide Anion Gap BUN Creatinine Estimated GFR POC Glucose 127 H 115 H 181 H Random Glucose Calcium Magnesium Total Bilirubin AST ALT Alkaline Phosphatase Total Protein Albumin 04/17/18 04/17/18 04/17/18 04:42 07:58 11:35 Sodium 148 H Potassium 3.3 L Chloride 120 H Carbon Dioxide 18.9 L Anion Gap 9 BUN 4 L Creatinine 0.96 Estimated GFR 57 L POC Glucose 118 H 144 H Random Glucose 111 H Calcium 7.9 L Magnesium 2.0 Total Bilirubin 0.3 AST 119 H ALT 115 H Alkaline Phosphatase 43 L Total Protein 4.6 L Albumin 1.7 L Assessment and Plan - Plan Mrs. Cummings is a 77 yo F with: 04/17: Creatinine WNL; stop fluids. Continue potassium replacement. We will likely discharge after electrolytes stabilize and kidney function improves - much better now. Weakness Impression: PMH CVA and prior rhabdomyolysis. 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 Head CT negative -Will treat hypokalemia and rhabdomyolysis -Will evaluate for new CVA; MRI indicated no acute infarct or hemorrhage. CYRUS/Rhabdomyolysis Impression: CK >6K on admission; Cr 1.6 (baseline 1) -IVF fluid stopped 04/17 -Cr WNL; monitor Hypokalemia Impression: K 2.3 on admission. No known GI loss of K; possible nutritional deficiency EKG on admission w/o EKG signs -Will replete K & Mg as needed -Will place on telemetry DM Impression: Normal blood glucose on admission; per EMR on Metformin at home -Will give SS Novolog during hospitalization DVT RLE with DVT on Doppler US -Will start Xarelto 15mg BID Case management DVT PPX -Xarelto -SCD's Code Status: Full code
[2018-04-17] MEDS: traZODone 50 MG Tablet PO SCH (20:46)
[2018-04-18 05:11] LABS: Calcium 8.2 mg/dL (8.5-10.1); Carbon Dioxide 20.1 meq/L (21.0-32.0); Potassium 3.6 meq/L (3.5-5.1)
[2018-04-18 05:44] LABS: CKMB Percent 0.4 % (0.0-4.0); Creatine Kinase MB 12.6 ng/mL (0.5-3.6)
[2018-04-18] MEDS: Rivaroxaban 15 MG Tablet PO SCH ×2 (09:00→17:09)
[2018-04-18] MEDS: Insulin NovoLOG Aspart Correctional Sugar Inj SQ SCH ×4 (09:55→22:49)
[2018-04-18] MEDS: Senna/Docusate Sodium 8.6/50 MG Tablet PO SCH ×2 (09:59→22:49)
[2018-04-18] MEDS ORDERED: Petrolatum/Shark Oil/Phenylephrine Oint 60 GM Tube RECTAL PRN (11:37)
--- NOTE | 2018-04-18 15:11 | P.PN ---
Subjective Interval history: Patient is seen lying in bed. She has finished her breakfast. She is complaining of rectal pain from hemorrhoids per her family. Patient is a poor historian. Nursing reports no adverse events. Physical Exam Vital signs: Vital Signs 04/17/18 16:00 04/17/18 20:00 04/17/18 20:30 Temperature 97.6 F 97.9 F Pulse Rate 70 92 H 83 Respiratory Rate 20 18 Blood Pressure 120/55 L 132/60 Pulse Oximetry 100 100 04/18/18 00:00 04/18/18 00:30 04/18/18 03:03 Temperature 97.7 F Pulse Rate 90 75 Respiratory Rate 18 18 Blood Pressure 138/62 Pulse Oximetry 99 04/18/18 04:00 04/18/18 04:30 04/18/18 08:00 Temperature 97.9 F 97.7 F Pulse Rate 93 H 65 77 Respiratory Rate 18 20 Blood Pressure 130/65 114/63 Pulse Oximetry 100 99 04/18/18 12:00 Temperature 98 F Pulse Rate 69 Respiratory Rate 20 Blood Pressure 120/60 Pulse Oximetry 98 Intake & Output 04/17/18 04/18/18 04/18/18 18:59 06:59 18:59 Intake Total 460 / 460 1200 / 1200 Output Total 3 / 3 Balance 457 / 457 1200 / 1200 Weight 96.1 kg Intake: IV 100 / 100 1200 / 1200 KCl 10 mEq Premix Inj 10 meq In 100 / 100 100 ml @ 100 mls/hr IV.SIG Q1H [facility] Rx#:[id number] Rocephin Inj 1,000 MG In NS Inj 100 / 100 100 ML @ 200 mls/hr IV.SIG Q24H S[facility] Rx#:[id number] Oral 360 / 360 Output: Urine 3 / 3 Other: # Voids 2 # Incontinent Voids 3 Date of Last Bowel Movement 04/17/18 04/17/18 Narrative: GENERAL: Well-nourished, well-developed adult female in no acute distress SKIN: warm/dry. HEAD: Atraumatic. Normocephalic. EYES: PERRLA, EOM I. NECK: No JVD. No appreciated lymphadenopathy CARDIOVASCULAR: Regular rate and rhythm without murmurs. RESPIRATORY: CTAB; normal rate GASTROINTESTINAL: Abdomen soft, non-tender, nondistended. MUSCULOSKELETAL: No further calf pain. Right lower extremity slightly larger. No signal edema bilateral NEUROLOGICAL: Awake and alert. CN- symmetrical smile; right facial droop. expressive aphasia. Bilateral upper and lower extremity weakness. Patient w/ 4/ 5 strength in upper and lower R extremity; asymmetrically weaker in comparison to left PSYCHIATRIC: alert and responsive to questions with difficult speech; orientation difficult to assess. No appreciable anxiety Results - Labs CBC & Chem 7: 04/13/18 07:33 04/18/18 04:42 Laboratory Results - last 24 hr 04/17/18 04/17/18 04/18/18 17:06 20:42 04:42 Sodium 148 H Potassium 3.6 Chloride 120 H Carbon Dioxide 20.1 L Anion Gap 8 BUN 5 L Creatinine 0.97 Estimated GFR 56 L POC Glucose 94 144 H Random Glucose 114 H Calcium 8.2 L Magnesium 2.0 Total Creatine Kinase 2851 H CK-MB (CK-2) 12.6 H CK-MB (CK-2) % 0.4 04/18/18 04/18/18 08:01 11:34 Sodium Potassium Chloride Carbon Dioxide Anion Gap BUN Creatinine Estimated GFR POC Glucose 112 H 259 H Random Glucose Calcium Magnesium Total Creatine Kinase CK-MB (CK-2) CK-MB (CK-2) % Assessment and Plan - Plan Mrs. Cummings is a 77 yo F with: 9 Creatinine WNL; stopped fluids 04/17. Continue potassium replacement. Patient has stabilized and will be considered for discharge Thursday. Weakness Impression: PMH CVA and prior rhabdomyolysis. 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 Head CT negative -Will treat hypokalemia and rhabdomyolysis -Will evaluate for new CVA; MRI indicated no acute infarct or hemorrhage. CYRUS/Rhabdomyolysis Impression: CK >6K on admission; Cr 1.6 (baseline 1) -IVF fluid stopped 04/17 -Cr WNL; monitor Hypokalemia Impression: K 2.3 on admission. No known GI loss of K; possible nutritional deficiency EKG on admission w/o EKG signs -Will replete K & Mg as needed -Will place on telemetry DM Impression: Normal blood glucose on admission; per EMR on Metformin at home -Will give SS Novolog during hospitalization DVT RLE with DVT on Doppler US -Will start Xarelto 15mg BID Case management DVT PPX -Xarelto -SCD's Code Status: Full code
[2018-04-18] MEDS: traZODone 50 MG Tablet PO SCH (22:49)
[2018-04-19] MEDS: Insulin NovoLOG Aspart Correctional Sugar Inj SQ SCH ×4 (08:10→21:00)
[2018-04-19 08:13] LABS: Calcium 8.5 mg/dL (8.5-10.1); Carbon Dioxide 24.5 meq/L (21.0-32.0)
[2018-04-19] MEDS: Senna/Docusate Sodium 8.6/50 MG Tablet PO SCH ×2 (08:43→20:53)
[2018-04-19] MEDS: Rivaroxaban 15 MG Tablet PO SCH ×2 (08:56→17:25)
--- NOTE | 2018-04-19 11:04 | P.PN ---
Subjective Interval history: Patient is seen lying quietly in bed. Indicates that her pain has improved with Preparation H. Nursing reports no adverse events overnight. Physical Exam Vital signs: Vital Signs 04/18/18 12:00 04/18/18 16:00 04/18/18 20:00 Temperature 98 F 97.9 F 97.8 F Pulse Rate 69 88 85 Respiratory Rate 20 20 18 Blood Pressure 120/60 127/60 118/59 L Pulse Oximetry 98 99 98 04/18/18 20:30 04/19/18 00:00 04/19/18 00:30 Temperature 97.9 F Pulse Rate 77 77 63 Respiratory Rate 18 Blood Pressure 122/58 L Pulse Oximetry 95 04/19/18 03:05 04/19/18 04:00 04/19/18 04:30 Temperature 97.6 F Pulse Rate 77 63 Respiratory Rate 18 18 Blood Pressure 111/58 L Pulse Oximetry 97 04/19/18 08:00 Temperature 97.5 F L Pulse Rate 75 Respiratory Rate 18 Blood Pressure 116/55 L Pulse Oximetry 96 Intake & Output 04/18/18 04/19/18 04/19/18 18:59 06:59 18:59 Intake Total 100 / 100 Output Total 5 / 5 Balance 95 / 95 Weight 95 kg Intake: IV 100 / 100 Rocephin Inj 1,000 MG In NS Inj 100 / 100 100 ML @ 200 mls/hr IV.SIG Q24H S[facility] Rx#:[id number] Output: Urine 4 / 4 Stool / Other: # Incontinent Voids 3 Date of Last Bowel Movement 04/18/18 04/19/18 Narrative: GENERAL: Well-nourished, well-developed adult female in no acute distress SKIN: warm/dry. HEAD: Atraumatic. Normocephalic. EYES: PERRLA, EOM I. NECK: No JVD. No appreciated lymphadenopathy CARDIOVASCULAR: Regular rate and rhythm without murmurs. RESPIRATORY: CTAB; normal rate GASTROINTESTINAL: Abdomen soft, non-tender, nondistended. MUSCULOSKELETAL: No further calf pain. Right lower extremity slightly larger. No signal edema bilateral NEUROLOGICAL: Awake and alert. CN- symmetrical smile; right facial droop. expressive aphasia. Bilateral upper and lower extremity weakness. Patient w/ 4/ 5 strength in upper and lower R extremity; asymmetrically weaker in comparison to left PSYCHIATRIC: alert and responsive to questions with difficult speech; orientation difficult to assess. No appreciable anxiety Results - Labs CBC & Chem 7: 04/13/18 07:33 04/19/18 07:00 Laboratory Results - last 24 hr 04/18/18 04/18/18 04/18/18 11:34 16:46 21:08 Sodium Potassium Chloride Carbon Dioxide Anion Gap BUN Creatinine Estimated GFR POC Glucose 259 H 119 H 180 H Random Glucose Calcium 04/19/18 04/19/18 07:00 08:10 Sodium 149 H Potassium 4.0 Chloride 117 H Carbon Dioxide 24.5 Anion Gap 8 BUN 6 L Creatinine 0.99 Estimated GFR 55 L POC Glucose 117 H Random Glucose 112 H Calcium 8.5 Assessment and Plan - Plan Mrs. Cummings is a 77 yo F with: 04/19: Patient has stabilized and will be considered for discharge; daughter now requesting rehab. Weakness Impression: PMH CVA and prior rhabdomyolysis. 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 Second admission this year with dehydration/rhabdo/CYRUS. -Will treat hypokalemia and rhabdomyolysis -No new CVA; Head CT negative; MRI indicated no acute infarct or hemorrhage. -PT Ordered CYRUS/Rhabdomyolysis Impression: CK >6K on admission;baseline 1 -IVF fluid stopped 04/17. Encourage oral intake of water. -Cr WNL; monitor Hypokalemia Impression: K 2.3 on admission. No known GI loss of K; possible nutritional deficiency EKG on admission w/o EKG signs -Will replete K & Mg as needed -Will place on telemetry UTI -04/13 Treated with ceftriaxone; complete DM Impression: Normal blood glucose on admission; per EMR on Metformin at home -Will give SS Novolog during hospitalization DVT RLE with DVT on Doppler US -Will start Xarelto 15mg BID Case management DVT PPX -Xarelto -SCD's Code Status: Full code
[2018-04-19] MEDS: traZODone 50 MG Tablet PO SCH (20:52)
[2018-04-20 06:53] LABS: Baso # (Auto) 0.1 th/mm3 (0.0-0.2); Baso % (Auto) 0.8 % (0.0-2.0); Eos # (Auto) 0.1 th/mm3 (0.0-0.4); Eos % (Auto) 1.1 % (0.0-4.0); Hematocrit 29.4 % (35.0-46.0); Lymph # (Auto) 2.3 th/mm3 (1.0-4.8); Lymph % (Auto) 36.1 % (9.0-44.0); Mean Corpuscular HGB Conc 34.2 % (32.0-36.0); Mean Corpuscular Hemoglobin 30.7 pg (27.0-34.0); Mean Corpuscular Volume 89.7 fL (80.0-100.0); Mean Platelet Volume 9.1 fL (7.0-11.0); Mono # (Auto) 0.4 th/mm3 (0.0-0.9); Mono % (Auto) 6.4 % (0.0-8.0); Neut # (Auto) 3.6 th/mm3 (1.8-7.7); Neut % (Auto) 55.6 % (16.0-70.0); Platelet Count 182 th/mm3 (150-450); Red Blood Count 3.28 mil/mm3 (4.00-5.30); Red Cell Distribution Width 15.9 % (11.6-17.2); White Blood Count 6.4 th/mm3 (4.0-11.0)
[2018-04-20 07:12] LABS: Calcium 8.3 mg/dL (8.5-10.1); Carbon Dioxide 22.8 meq/L (21.0-32.0); Potassium 3.4 meq/L (3.5-5.1)
[2018-04-20] MEDS: Rivaroxaban 15 MG Tablet PO SCH ×2 (08:41→17:59)
[2018-04-20] MEDS: Senna/Docusate Sodium 8.6/50 MG Tablet PO SCH ×2 (08:41→21:11)
[2018-04-20] MEDS: Insulin NovoLOG Aspart Correctional Sugar Inj SQ SCH ×4 (08:41→21:12)
--- NOTE | 2018-04-20 12:33 | P.PN ---
Subjective Interval history: Follow patient with weakness, rhabdomyolysis. Patient seen and examined. Patient appears to have expressive and receptive aphasia at baseline. Appears comfortable. Does not indicate that she is in any pain. Discussed with nursing staff, no acute events noted overnight. Physical Exam Vital signs: Vital Signs 04/19/18 16:00 04/19/18 20:00 04/20/18 00:00 Temperature 97.7 F 98 F 97.3 F L Pulse Rate 90 80 76 Respiratory Rate 16 18 18 Blood Pressure 110/64 112/59 L 103/58 L Pulse Oximetry 100 98 96 04/20/18 04:00 04/20/18 05:00 04/20/18 08:00 Temperature 97.7 F 98.0 F Pulse Rate 75 77 77 Respiratory Rate 18 20 Blood Pressure 87/51 L 105/56 L Pulse Oximetry 96 96 04/20/18 09:00 Temperature Pulse Rate 72 Respiratory Rate Blood Pressure Pulse Oximetry Intake & Output 04/19/18 04/20/18 04/20/18 18:59 06:59 18:59 Intake Total 600 / 600 Balance 600 / 600 Weight 95 kg Intake: Oral 600 / 600 Other: # Voids 3 2 Date of Last Bowel Movement 04/19/18 04/19/18 # Bowel Movements 2 1 Narrative: GENERAL: Well-developed well-nourished overweight female, no acute distress. Awake and alert. + global aphasia SKIN: Warm and dry. HEAD: Atraumatic. Normocephalic. EYES: Pupils equal and round. No scleral icterus. No injection or drainage. ENT: No nasal bleeding or discharge. Mucous membranes pink and moist. NECK: Trachea midline. No JVD. CARDIOVASCULAR: Regular rate and rhythm. RESPIRATORY: No accessory muscle use. Clear to auscultation. Breath sounds equal bilaterally. GASTROINTESTINAL: Abdomen soft, non-tender, nondistended. Hepatic and splenic margins not palpable. MUSCULOSKELETAL: Extremities without clubbing, cyanosis, or edema. No obvious deformities. NEUROLOGICAL: Awake and alert. +Global aphasia, mostly expressive. Seems to have difficulty following commands. Able to spontaneously move bilateral upper and lower extremities. Weakness noted in the right upper and lower extremity. PSYCHIATRIC: Calm and cooperative Results - Labs CBC & Chem 7: 04/20/18 05:15 04/20/18 05:15 Laboratory Results - last 24 hr 04/19/18 04/19/1818 12:25 17:07 20:51 WBC RBC Hgb Hct MCV MCH MCHC RDW Plt Count MPV Neut % (Auto) Lymph % (Auto) Kane % (Auto) Eos % (Auto) Baso % (Auto) Neut # (Auto) Lymph # (Auto) Kane # (Auto) Eos # (Auto) Baso # (Auto) WBC Differential Differential Comment Sodium Potassium Chloride Carbon Dioxide Anion Gap BUN Creatinine Estimated GFR POC Glucose 176 H 131 H 185 H Random Glucose Calcium Magnesium 04/20/18 04/20/18 04/20/18 05:15 05:15 07:37 WBC 6.4 RBC 3.28 L Hgb 10.0 L Hct 29.4 L MCV 89.7 MCH 30.7 MCHC 34.2 RDW 15.9 Plt Count 182 MPV 9.1 Neut % (Auto) 55.6 Lymph % (Auto) 36.1 Kane % (Auto) 6.4 Eos % (Auto) 1.1 Baso % (Auto) 0.8 Neut # (Auto) 3.6 Lymph # (Auto) 2.3 Kane # (Auto) 0.4 Eos # (Auto) 0.1 Baso # (Auto) 0.1 WBC Differential . Differential Comment Auto diff final Sodium 148 H Potassium 3.4 L Chloride 116 H Carbon Dioxide 22.8 Anion Gap 9 BUN 5 L Creatinine 0.99 Estimated GFR 55 L POC Glucose 120 H Random Glucose 108 H Calcium 8.3 L Magnesium 2.0 04/20/18 12:15 WBC RBC Hgb Hct MCV MCH MCHC RDW Plt Count MPV Neut % (Auto) Lymph % (Auto) Kane % (Auto) Eos % (Auto) Baso % (Auto) Neut # (Auto) Lymph # (Auto) Kane # (Auto) Eos # (Auto) Baso # (Auto) WBC Differential Differential Comment Sodium Potassium Chloride Carbon Dioxide Anion Gap BUN Creatinine Estimated GFR POC Glucose 208 H Random Glucose Calcium Magnesium Assessment and Plan - Plan Mrs. Cummings is a 77 yo F with: Weakness Impression: PMH CVA and prior rhabdomyolysis. 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 Second admission this year with dehydration/rhabdo/CYRUS. -Evaluated by neurology. No new CVA; Head CT negative; MRI indicated no acute infarct or hemorrhage. -Continue with PT/OT CYRUS/Rhabdomyolysis Impression: CK >6K on admission;baseline 1 -IVF fluid stopped 04/17. Encourage oral intake of water. -Cr WNL; monitor Hypokalemia Impression: K 2.3 on admission. No known GI loss of K; possible nutritional deficiency EKG on admission w/o EKG signs -Will replete K & Mg as needed -K 3.4. po repletion ordered. Hypernatremia Na 148 -encourage po intake -monitor Na level as indicated UTI -04/13 Treated with ceftriaxone; completed DM Impression: Normal blood glucose on admission; per EMR on Metformin at home HgbA1c 6.8 Blood sugars have been fairly well controlled overall -Change to diabetic heart healthy diet -Will give SS Novolog during hospitalization DVT RLE with DVT on Doppler US -continue on Xarelto 15mg BID x 21 days from 04/12 then 20mg daily with food DVT PPX -Xarelto -SCD's Code Status: FULL Discussed Condition With: patient, nursing staff
--- NOTE | 2018-04-20 17:34 | P.DS ---
Date of admission: 04/12/18 16:25 Primary care physician: UNKNOWN Attending physician on discharge: Tanner Jean Anticipated date of discharge: 04/20/18 Brief History from admission: Mrs. Cummings is a 77 yo F with PMH CVA, HTN, hyperlipidemia who presented to [facility] in the company of her boyfriend for evaluation of recent onset of weakness. Patient's partner provided history due to patient's CVA and expressive aphasia. Patient's boyfriend had difficulty lifting her off of the couch yesterday; she was able to barely stand up. She has since worsened and been unable to walk. Due to worsening of weakness and inability to ambulate, he called EMS this morning for her. She has not had any changes in her speech, which has been poor since prior CVA ~1.5 years ago. patient has had chronic weakness which is worse in her right extremities. Patient has also been not eating for the past ~2 days. He also reports that patient has generally been declining for the past month and has not been receiving home health care which she received initially after last hospitalization. Patient has had chronic cough; no recent changes. No reported chest pain, changes in bowel movements/urination, or other concerns. PMH- CVA, HTN, hyperlipidemia PSH- Hysterectomy SH- tobacco abuse, prior alcohol abuse FH- ? GH Patient update on day of discharge: Follow up on patient with weakness, rhabdomyolysis. Patient seen and examined. Patient appears to have expressive and receptive aphasia at baseline. Appears comfortable. Does not indicate that she is in any pain. Discussed with nursing staff, no acute events noted overnight. DS: Diagnosis - Discharge Diagnosis (1) Rhabdomyolysis Status: Acute (2) DVT, lower extremity, distal, acute Status: Acute (3) Hypernatremia Status: Acute (4) Acute kidney injury Status: Acute (5) Acute hypokalemia Status: Acute (6) Adult failure to thrive Status: Acute (7) Altered mental status Status: Acute (8) Urinary tract infection Status: Resolved DS: Summary Hospital Course: Patient with weakness, rhabdomyolysis, hypokalemia and acute kidney injury. Due to previous history of CVA and altered mental status and was concern for possible recurrent stroke. She was seen in consultation by neurology. Head CT was negative. MRI revealed no evidence of acute infarction or hemorrhage. Patient was found to have a DVT in the right lower extremity was started on Xarelto. She was treated with potassium repletion and aggressive IV fluid hydration. Patient's kidney function was monitored closely. Patient's kidney function improved. Her CPK trended down significantly. She was found to have Klebsiella urinary tract infection and was treated with ceftriaxone. Echocardiogram was done with a EF of 55-60%. Patient participated with PT and OT. Case management assisted with discharge planning. Patient was evaluated and accepted to [facility] for comprehensive rehabilitation. - Time Spent with Patient Total time spent providing and/or coordinating discharge services: Greater than 30 minutes Exam Vital signs: Vital Signs 04/19/18 20:00 04/20/18 00:00 04/20/18 04:00 Temperature 98 F 97.3 F L 97.7 F Pulse Rate 80 76 75 Respiratory Rate 18 18 18 Blood Pressure 112/59 L 103/58 L 87/51 L Pulse Oximetry 98 96 96 04/20/18 05:00 04/20/18 08:00 04/20/18 09:00 Temperature 98.0 F Pulse Rate 77 77 72 Respiratory Rate 20 Blood Pressure 105/56 L Pulse Oximetry 96 04/20/18 12:00 04/20/18 16:00 Temperature 98.2 F 97.5 F L Pulse Rate 81 77 Respiratory Rate 20 20 Blood Pressure 133/56 L 129/60 Pulse Oximetry 99 95 Intake & Output 04/19/18 04/20/18 04/20/18 18:59 06:59 18:59 Intake Total 600 / 600 Output Total 6 / 6 Balance 600 / 600 -6 / -6 Weight 95 kg Intake: Oral 600 / 600 Output: Urine 6 / 6 Other: # Voids 3 2 1 Date of Last Bowel Movement 04/19/18 04/19/18 # Bowel Movements 2 1 Narrative: GENERAL: Well-developed well-nourished overweight female, no acute distress. Awake and alert. + global aphasia SKIN: Warm and dry. HEAD: Atraumatic. Normocephalic. EYES: Pupils equal and round. No scleral icterus. No injection or drainage. ENT: No nasal bleeding or discharge. Mucous membranes pink and moist. NECK: Trachea midline. No JVD. CARDIOVASCULAR: Regular rate and rhythm. RESPIRATORY: No accessory muscle use. Clear to auscultation. Breath sounds equal bilaterally. GASTROINTESTINAL: Abdomen soft, non-tender, nondistended. Hepatic and splenic margins not palpable. MUSCULOSKELETAL: Extremities without clubbing, cyanosis, or edema. No obvious deformities. NEUROLOGICAL: Awake and alert. +Global aphasia, mostly expressive. Seems to have difficulty following commands. Able to spontaneously move bilateral upper and lower extremities. Weakness noted in the right upper and lower extremity. PSYCHIATRIC: Calm and cooperative Results Procedures completed during hospitalization: None Labs on day of discharge: Labs from last 24 hours 04/20/18 04/20/18 04/20/18 16:53 12:15 07:37 WBC RBC Hgb Hct MCV MCH MCHC RDW Plt Count MPV Neut % (Auto) Lymph % (Auto) Marshall % (Auto) Eos % (Auto) Baso % (Auto) Neut # (Auto) Lymph # (Auto) Marshall # (Auto) Eos # (Auto) Baso # (Auto) WBC Differential Differential Comment Sodium Potassium Chloride Carbon Dioxide Anion Gap BUN Creatinine Estimated GFR POC Glucose 128 H 208 H 120 H Random Glucose Calcium Magnesium 04/20/18 04/20/18 04/19/18 05:15 05:15 20:51 WBC 6.4 RBC 3.28 L Hgb 10.0 L Hct 29.4 L MCV 89.7 MCH 30.7 MCHC 34.2 RDW 15.9 Plt Count 182 MPV 9.1 Neut % (Auto) 55.6 Lymph % (Auto) 36.1 Marshall % (Auto) 6.4 Eos % (Auto) 1.1 Baso % (Auto) 0.8 Neut # (Auto) 3.6 Lymph # (Auto) 2.3 Marshall # (Auto) 0.4 Eos # (Auto) 0.1 Baso # (Auto) 0.1 WBC Differential . Differential Comment Auto diff final Sodium 148 H Potassium 3.4 L Chloride 116 H Carbon Dioxide 22.8 Anion Gap 9 BUN 5 L Creatinine 0.99 Estimated GFR 55 L POC Glucose 185 H Random Glucose 108 H Calcium 8.3 L Magnesium 2.0 - Impressions ITS Impressions Ankle X-Ray 04/12/18 00:00 CONCLUSION: Mild osteoarthritic findings of the ankle. No evidence of fracture. Carotid Doppler Study 04/12/18 00:00 CONCLUSION: 1. Right Internal Carotid Artery: Findings indicate <50% stenosis. 2. 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 Knee X-Ray 04/12/18 00:00 CONCLUSION: 1. Mild osteoarthritic findings. 2. No evidence of fracture. Venous Doppler Study 04/12/18 00:00 CONCLUSION: 1. Study is positive for deep venous thrombosis on the right side in the calf and proximal thigh. Chest X-Ray 04/12/18 13:00 CONCLUSION: 1. No acute abnormality or significant interval change. Head CT 04/12/18 13:00 CONCLUSION: 1. No acute intracranial abnormality or significant interval change. 2. 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 . Head MRI 04/13/18 07:01 CONCLUSION: 1. No evidence of acute infarction or hemorrhage. 2. Old left MCA and RAY infarctions with atrophy and encephalomalacia. Discharge Plan - Discharge Disposition Patient Disposition: [facility] Re[facility] Inpatient - Discharge Condition Condition: Stable - Discharge Order Discharge Orders: Discharge Order (Routine); Ordered 04/20/18 Ordered By: Shira Ellison - Discharge Details Discharge Comment: Discharge pending insurance auth to [facility] - Physicians Team Primary Care Provider: UNKNOWN, Attending Provider: Tanner Jean Other Providers: Kajal Figueroa MD ; Tali Vivar MD ; Glenys Veronica
[2018-04-20] MEDS: traZODone 50 MG Tablet PO SCH (21:11)
[2018-04-20 22:48] VITALS: RESP 18
--- NOTE | 2018-04-21 07:20 | P.PN ---
Subjective Interval history: Follow patient with weakness, rhabdomyolysis. Patient seen and examined. Patient is awake lying in her bed. Appears comfortable. +Expressive and mild receptive aphasia. She is able to follow some commands. Does not indicate she is in pain. Discussed with nursing staff, patient had 3 soft stools overnight. No other events noted. Physical Exam Vital signs: Vital Signs 04/20/18 08:00 04/20/18 09:00 04/20/18 12:00 Temperature 98.0 F 98.2 F Pulse Rate 77 72 81 Respiratory Rate 20 20 Blood Pressure 105/56 L 133/56 L Pulse Oximetry 96 99 04/20/18 16:00 04/20/18 20:00 04/20/18 20:15 Temperature 97.5 F L 97.5 F L Pulse Rate 77 71 Respiratory Rate 20 18 Blood Pressure 129/60 91/54 L 102/62 Pulse Oximetry 95 98 04/21/18 00:00 04/21/18 04:00 Temperature 98 F 97.6 F Pulse Rate 69 77 Respiratory Rate 18 18 Blood Pressure 100/58 L 99/54 L Pulse Oximetry 98 96 Intake & Output 04/20/18 04/21/18 04/21/18 18:59 06:59 18:59 Intake Total 480 / 480 600 / 600 Output Total Balance 470 / 470 600 / 600 Weight 97.2 kg Intake: Oral 480 / 480 600 / 600 Output: Urine Other: # Voids 1 1 # Urine Diapers 1 Date of Last Bowel Movement 04/20/18 # Bowel Movements 1 Weight On Admission 95 kg Narrative: GENERAL: Well-developed well-nourished overweight female, no acute distress. Awake and alert. + Global aphasia, expressive > receptive. SKIN: Warm and dry. No generalized rash. HEENT: Atraumatic. Normocephalic. Pupils equal and round. No scleral icterus. No injection or drainage. No nasal bleeding or discharge. Mucous membranes pink and moist. NECK: Trachea midline. CARDIOVASCULAR: Regular rate and rhythm. No murmur auscultated. RESPIRATORY: No accessory muscle use. Clear to auscultation. Breath sounds equal bilaterally. GASTROINTESTINAL: Abdomen soft, non-tender, nondistended. +BS. MUSCULOSKELETAL: Extremities without clubbing or cyanosis. 1+ bilateral lower extremity pitting edema. NEUROLOGICAL: Awake and alert. +Global aphasia, mostly expressive. Seems to have difficulty following some commands. Able to spontaneously move bilateral upper and lower extremities. Weakness noted in the right upper and lower extremity. PSYCHIATRIC: Calm and cooperative Results - Labs CBC & Chem 7: 04/20/18 05:15 04/21/18 06:32 Laboratory Results - last 24 hr 04/20/18 04/20/18 04/20/18 07:37 12:15 16:53 POC Glucose 120 H 208 H 128 H 04/20/18 20:36 POC Glucose 158 H - Procedures None Assessment and Plan - Assessment (1) Rhabdomyolysis Code(s): M62.82 - Rhabdomyolysis Status: Acute (2) DVT, lower extremity, distal, acute Code(s): I82.4Z9 - Acute embolism and thrombosis of unspecified deep veins of unspecified distal lower extremity Status: Acute (3) Hypernatremia Code(s): E87.0 - Hyperosmolality and hypernatremia Status: Acute (4) Acute kidney injury Code(s): N17.9 - Acute kidney failure, unspecified Status: Acute (5) Acute hypokalemia Code(s): E87.6 - Hypokalemia Status: Acute (6) Adult failure to thrive Code(s): R62.7 - Adult failure to thrive Status: Acute (7) Altered mental status Code(s): R41.82 - Altered mental status, unspecified Status: Acute (8) Urinary tract infection Code(s): N39.0 - Urinary tract infection, site not specified Status: Acute - Plan Mrs. Cummings is a 77 yo F with: Weakness Impression: PMH CVA and prior rhabdomyolysis. 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 Second admission this year with dehydration/rhabdo/CYRUS. -Evaluated by neurology. No new CVA; Head CT negative; MRI indicated no acute infarct or hemorrhage. -Continue with PT/OT CYRUS/Rhabdomyolysis Impression: CK >6K on admission;baseline 1 -IVF fluid stopped 04/17. Encourage oral intake of water. -Cr bumped up slightly to 1.02. Avoid nephrotoxic agents. Continue to monitor kidney function. Hypokalemia Impression: K 2.3 on admission. No known GI loss of K; possible nutritional deficiency EKG on admission w/o EKG signs -Will replete K & Mg as needed -K 3.4. Start on 20meq daily. Monitor K intermittently. Hypernatremia, improving Na 148 -encourage po intake -repeat Na 146 -monitor Na level as indicated UTI -04/13 Treated with ceftriaxone; completed DM Impression: Normal blood glucose on admission; per EMR on Metformin at home HgbA1c 6.8 Blood sugars have been fairly well controlled overall -diabetic heart healthy diet -Will give SS Novolog during hospitalization BLE pitting edema Echo 04/13/18 EF 55-60% BP too low to tolerate diuretic -PRASHANT hose (will help with hypotension as well) -monitor for improvement Hypotensive Orthostatics neg BP 97/47 lying, improved to 137/65 with standing -monitor for e/o symptomatology -continue to monitor BP DVT RLE with DVT on Doppler US -continue on Xarelto 15mg BID x 21 days from 04/12 then 20mg daily with food DVT PPX -Xarelto -SCD's Code Status: FULL Discussed Condition With: patient, nursing staff Discharge Planning: Patient is medically cleared for discharge to [facility]. D/C pending insurance auth to [facility]. CM assisting. (8) Urinary tract infection Qualifiers: Urinary tract infection type: site unspecified Hematuria presence: without hematuria Qualified Code(s): N39.0 - Urinary tract infection, site not specified
[2018-04-21 07:49] LABS: Calcium 8.5 mg/dL (8.5-10.1); Potassium 3.4 meq/L (3.5-5.1)
[2018-04-21] MEDS: Senna/Docusate Sodium 8.6/50 MG Tablet PO SCH (08:45)
[2018-04-21] MEDS: Insulin NovoLOG Aspart Correctional Sugar Inj SQ SCH ×2 (08:45→14:46)
[2018-04-21] MEDS: Rivaroxaban 15 MG Tablet PO SCH (08:45)
[2018-04-21 10:23] VITALS: TEMP 98.1
[2018-04-21] MEDS ORDERED: Potassium Chloride 25 MEQ Effervescent Tablet PO SCH (11:00)
[2018-04-21 11:06] LABS: Creatine Kinase MB 3.1 ng/mL (0.5-3.6)
[2018-04-21 12:28] VITALS: BP 104/59; O2SAT 99
[2018-04-21 12:36] VITALS: PULSE 81
== END 2018-04-21 15:26 ==
LOC: NEPC 12:24 → NEDA 16:25 → N05 18:02
PROVIDERS: ADMIT Hospitalist; ATTEND Hospitalist